=== PATIENT | female | born 1990 | race Caucasian/White ===

== ENCOUNTER → 2018-03-24 01:01 | Outpatient (CLI) | payer MEDICAID, SELFPAY ==
--- NOTE | 2018-03-24 08:23 | DI.REPORT_ITS ---
SYMPTOM/DIAGNOSIS: UNSPECIFIED HYDRONEPHROSIS N13.30 DTPA RENOGRAM WITH LASIX: 10.7 mCi Tc99m D.T.P.A was administered IV. Flow images show symmetric visualization of the kidneys. Renal split function is nearly even with 51% on the left and 49% on the right. 119 mg Furosemide were administered IV at 11 minutes. The renal collecting systems appear nearly symmetric. The right collecting system is slightly more prominent than the left. There is no evidence of obstruction. IMPRESSION: DTPA renogram is within normal limits.
[2018-03-24] MEDS: Furosemide 20 MG/2 ML VIAL IVP (09:55)
== END ==
PROVIDERS: PCP Nurse Practitioner Family; Visit Provider Nurse Practitioner
DX: N13.30 Unspecified hydronephrosis (principal)
CPT/HCPCS: 78708; J1941

== ENCOUNTER 2019-01-01 01:19 | Outpatient (CLI) | payer MEDICAID, SELFPAY ==
[2019-01-01] MEDS: Omnipaque 350 MG/ML 100 ML BTL IJ (08:48)
--- NOTE | 2019-01-01 08:49 | DI.CT_ITS ---
SYMPTOM/DIAGNOSIS: BILAT FLANK PAIN, R10.9, H/O KIDNEY STONES AND UTI'S ABDOMEN AND PELVIC CT: Pre and post contrast examination was performed in addition to a delayed image of the renal collecting system. Comparison examination is 10/13/17. Noncontrast examination again shows a calcification in the upper pole of the right kidney measuring 0.4 cm. This is unchanged. There does appear to be a tiny, 1 mm. non obstructing stone in the upper pole of the left kidney (series 5, image 126). No ureterolithiasis is identified. Note is made of an intrauterine device within the uterus. Venous imaging was performed according to protocol. The visualized lung bases are clear. The liver is normal in size. There is no evidence of a hepatic mass. The portal, superior mesenteric and splenic veins are patent. The gallbladder is negative. There is no biliary ductal dilatation. The pancreas, spleen and adrenal glands are unremarkable. The kidneys show normal and symmetric enhancement. No suspicious renal mass is present. The urinary bladder is intact. Apart from the intrauterine device, the uterus is grossly unremarkable. There does appear to be mild prominence of the periuterine vessels and pelvic venous congestion cannot be excluded. This was present on the prior examination. There is a 2 cm. right ovarian cyst present. There is a question of prominence of the region of the cervix. Pelvic ultrasound may be considered for further evaluation. MRI may also be considered. The abdominal aorta is of normal caliber. No significant abdominal or pelvic adenopathy, ascites or pneumoperitoneum is seen. The bowel shows no evidence of obstruction or inflammation. No findings to suggest an acute appendicitis are present. There is spondylolysis of L 5 but no significant spondylolisthesis is present. 7 minute delayed images of the collecting system were performed. No filling defects are seen in the renal collecting system. No findings to definitely suggest obstruction are present. The urinary bladder is grossly unremarkable. IMPRESSION: Nephrolithiasis. No evidence of ureterolithiasis or obstructive uropathy. Question of prominence of the cervix. Pelvic ultrasound and/or MRI may be considered for further evaluation.
== END 2019-01-01 01:39 ==
PROVIDERS: PCP Nurse Practitioner Family; Visit Provider Nurse Practitioner Acute Care
DX: N20.0 Calculus of kidney (principal); R10.31 Right lower quadrant pain; R10.32 Left lower quadrant pain; Z87.440 Personal history of urinary (tract) infections; Z87.442 Personal history of urinary calculi; Z97.5 Presence of (intrauterine) contraceptive device; N83.291 Other ovarian cyst, right side
CPT/HCPCS: 74178; J3490

== ENCOUNTER 2019-03-12 13:49 | Outpatient (REF) | payer MEDICAID, SELFPAY | END 2019-03-12 14:09 | LOC: LBN 13:49 | PROVIDERS: PCP Nurse Practitioner Family; Visit Provider Nurse Practitioner Family | DX: R30.0 Dysuria (principal) | CPT/HCPCS: 87086 ==

== ENCOUNTER 2019-07-19 13:31 | Outpatient (REF) | payer MEDICAID, SELFPAY ==
--- NOTE | 2019-07-19 13:20 | PAPFT_PTH ---
PATIENT: Lulú Oneil LOC: [facility] U#:[id number] AGE/SX: 28/F ROOM: RE07/19/[address]: Quique Reyes MD : 1990 BED: DIS: 07/19/2019 SPEC #: [id number] RECD: 07/19/19 17:41 STATUS: MYRANDA REShabana #: [id number] LUBNA: 07/19/19 13:[address]: Quique Reyes DEPT: [facility] Cytology RECD BY: Margie Booth ENTERED: 07/19/19 17:43 SP TYPE: PAPFT ROSENDO DR: Ana Hendrix APRN Tissues: 1 - CX/ENDOCX FOR PAP SMEARS Procedures: PAP THIN PREP/UVM Screening Comments: [id number]
== END 2019-07-19 13:51 ==
LOC: LBN 13:31
PROVIDERS: PCP Nurse Practitioner Adult Health; Visit Provider Obstetrics & Gynecology
DX: Z12.4 Encounter for screening for malignant neoplasm of cervix (principal)
CPT/HCPCS: 88142

== ENCOUNTER 2019-09-06 16:38 | Outpatient (CLI) | payer MEDICAID, SELFPAY ==
--- NOTE | 2019-09-06 16:49 | DI.RAD_ITS ---
EXAM: XR ORBITS CLINICAL HISTORY: r/o fracture S09.93XA RT SIDED FACIAL TENDERNESS. TECHNIQUE: 2D digital imaging was performed. COMPARISON: No previous for comparison FINDINGS: No acute fractures are identified. The visualized paranasal sinuses appear clear. The mastoid air c ells are well aerated. IMPRESSION: Unremarkable radiographs of the orbits.
--- NOTE | 2019-09-06 16:51 | DI.RAD_ITS ---
EXAM: XR MANDIBLE COMPLETE CLINICAL HISTORY: r/o fracture S09.93XA, RT SIDED FACIAL TENDERNESS. TECHNIQUE: 2D digital imaging was performed. COMPARISON: XR ORBITS from 09/06/2019 FINDINGS: BONES: No evidence of fracture. JOINTS: No evidence of temporomandibular joint dislocation or subluxation. SOFT TISSUES: Unremarkable. IMPRESSION: Unremarkable radiographs of the mandible.
--- NOTE | 2019-09-06 17:22 | DI.RAD_ITS ---
EXAM: XR NASAL BONES CLINICAL HISTORY: r/o fracture S09.93XA. TECHNIQUE: 2D digital imaging was performed. COMPARISON: No exams were available for comparison FINDINGS: BONES: No evidence of fracture. The nasal septum is midline. SOFT TISSUES: Unremarkable. IMPRESSION: Unremarkable radiographs of the nasal bones.
== END 2019-09-06 16:58 ==
PROVIDERS: PCP Nurse Practitioner Adult Health; Visit Provider Nurse Practitioner Adult Health
DX: S00.33XA Contusion of nose, initial encounter (principal); X58.XXXA Exposure to other specified factors, initial encounter; S00.83XA Contusion of other part of head, initial encounter
CPT/HCPCS: 70110; 70160; 70200

== ENCOUNTER 2019-10-07 07:55 | Emergency (ER) | payer MEDICAID, SELFPAY ==
[2019-10-07 07:58] VITALS: BP 98/64; PULSE 77; RESP 20; TEMP 36.5; O2SAT 99
[2019-10-07 08:20] LABS: Bilirubin Negative (Negative); Blood Negative (Negative); Clarity Clear (Clear); Glucose Negative (Negative); Ketones Negative (Negative); Leukocyte Esterase Trace (Negative); Nitrite Negative (Negative); Specific Gravity 1.025 (1.005-1.025); Urobilinogen 0.2 EU/dL (Up TO 0.2)
--- NOTE | 2019-10-07 08:37 | ED.GENADUL_ITS ---
Discharge Plan Disposition Patient Disposition: OTHER Condition: Serious Discharge Details Chief Complaint: Abd Prob Clinical Impression: Pelvic congestion syndrome, Abdominal pain Primary Care Provider: Ana Hendrix ED Provider: Hitesh Blevins Home Meds and New Rx's Prescriptions: No Action clonazepam [Klonopin] 0.5 mg tablet 0.5 mg PO DAILY RF: 0 amitriptyline 25 mg tablet 25 mg PO QHS Qty: 30 RF: 2 prochlorperazine maleate 5 mg tablet 5 mg PO TID PRN (Reason: headaches) Qty: 30 RF: 2 Mirena 1 EACH intrauterine device 1 ea Intrauterine ONCE Qty: 1 RF: 0 topiramate [Topamax] 25 mg tablet 25 mg PO BID Qty: 132 RF: 3 rizatriptan 5 mg tablet 5 mg PO ONCE PRN (Reason: migraine headache) Qty: 20 RF: 2 nitrofurantoin monohyd/m-cryst [Macrobid] 100 mg capsule 100 mg PO DAILY PRNRF: 0 sertraline 50 mg tablet 75 mg PO DAILY Qty: 145 RF: 3 doxycycline hyclate 75 mg tablet 75 mg PO BID Qty: 14 RF: 0 doxycycline hyclate 100 mg tablet 100 mg PO BID Qty: 14 RF: 0 ibuprofen 600 mg tablet 600 mg PO Q6H PRN (Reason: pain) Qty: 60 RF: 1 epinephrine [EpiPen 2-Jovi] 0.3 MG/0.3 ML auto-injector 0.3 mg IJ AC PRNQty: 2 RF: 0 Discharge Data Discharge Date/Time-TO BE ENTERED AT DEPARTURE: 10/07/19 12:31 Medical Decision Making 8:45 --29-year-old female is here with sudden onset left suprapubic abdominal pain, tender to palpation left suprapubic with some rebound tenderness. Concern for ovarian cyst rupture versus ovarian torsion. Plan to obtain stat pelvic ultrasound. Patient to be given Toradol 30 mg IM for pain. --Pelvic ultrasound was interpreted by radiology:IMPRESSION: 1. Normal sonographic appearance of the kidneys. 2. Normal-appearing uterus with endometrial stripe within normal limits. IUD in good position 3. 2.7 x 1.8 x 2.8 cm complex right ovarian cyst likely reflecting a hemorrhagic cyst. 4. Prominent parametrial vessels which may reflect pelvic congestion syndrome. 5. The findings were discussed with Dr. Blevins of the emergency department on the date of the examination. --Labs reviewed and nondiagnostic. No leukocytosis. Urinalysis nondiagnostic. --Patient was evaluated by Dr. Richardson at bedside. Given current ED status no appropriate exam rooms for pelvic exam. Patient will be transferred to women's wellness clinic under the care of Dr. Richardson for further evaluation, treatment and disposition. HPI General Mode of arrival: ambulatory . Date/Time Provider Initiated Documentation: 10/07/19 08:16 . Limitations to Documentation: no limitations . Information obtained by: patient . HPI Narrative: 29-year-old female with history of prior renal stones, IUD placement, here with chief complaint of left lower abdominal pain. Pain started suddenly this morning around 630 and has persisted. Pain is severe. Sharp. Localized to left suprapubic area. Some associated mild nausea. No vomiting. No diarrhea. No hematuria or dysuria. No flank pain. Pain does not feel like prior renal stone. Patient denies vaginal discharge. No rash. Patient denies trauma. Patient notes IUD was placed a few months ago without complication. Last menstrual period was years ago. Related Data Home Medications Medication Instructions Recorded Confirmed epinephrine [EpiPen 2-Jovi] 0.3 mg IJ AC PRN #2 ml 03/24/16 10/07/19 levonorgestrel [Mirena] 1 ea INTRAUTERINE ONCE #1 implant 11/07/17 10/07/19 clonazepam 0.5 mg tablet 0.5 mg PO DAILY 06/07/19 09/20/19 rizatriptan 5 mg tablet 5 mg PO ONCE PRN #20 tab-cap 06/23/19 10/07/19 topiramate 25 mg tablet 25 mg PO BID #132 tab 06/23/19 10/07/19 nitrofurantoin 100 mg PO DAILY PRN cap 07/19/19 10/07/19 monohydrate/macrocrystals 100 mg capsule sertraline 50 mg tablet 75 mg PO DAILY #145 tab 08/18/19 10/07/19 amitriptyline 25 mg tablet 25 mg PO QHS #30 tab 10/06/19 10/07/19 prochlorperazine maleate 5 mg 5 mg PO TID PRN #30 tab 10/06/19 10/07/19 tablet doxycycline hyclate 75 mg tablet 75 mg PO BID #14 tab 10/07/19 doxycycline hyclate 100 mg tablet 100 mg PO BID #14 tab 10/08/19 ibuprofen 600 mg tablet 600 mg PO Q6H PRN #60 tab 10/15/19 Previous Rx's Medication Instructions Recorded epinephrine [EpiPen 2-Jovi] 0.3 mg IJ AC PRN #2 ml 03/24/16 rizatriptan 5 mg tablet 5 mg PO ONCE PRN #20 tab-cap 06/23/19 topiramate 25 mg tablet 25 mg PO BID #132 tab 06/23/19 sertraline 50 mg tablet 75 mg PO DAILY #145 tab 08/18/19 amitriptyline 25 mg tablet 25 mg PO QHS #30 tab 10/06/19 prochlorperazine maleate 5 mg 5 mg PO TID PRN #30 tab 10/06/19 tablet doxycycline hyclate 75 mg tablet 75 mg PO BID #14 tab 10/07/19 doxycycline hyclate 100 mg tablet 100 mg PO BID #14 tab 10/08/19 ibuprofen 600 mg tablet 600 mg PO Q6H PRN #60 tab 10/15/19 Allergies Allergy/AdvReac Type Severity Reaction Status Date / Time bee venom protein (honey bee) Allergy Severe Verified 10/11/19 08:32 General Stated Complaint: Abd Prob ALEC: 3 Review of Systems All systems reviewed & are unremarkable except as noted in HPI and below Constitutional Constitutional: Denies fever(s) Gastrointestinal Gastrointestinal: Reports as per HPI Genitourinary Genitourinary: Denies genital lesions, Denies dysuria, Denies flank pain and Denies vaginal discharge [facility] Medical History (Updated 10/15/19 @ 13:13 by Cate Nguyen MD) Abnormal cervical Papanicolaou smear 2011, 02/22/15 nml neg HPV Allergic rhinitis Anxiety (Chronic) With depressive components in Winter PTSD components; PRN Clonazepam 2x/wk avg Migraine (Acute) Nephrolithiasis (Resolved) R Pelvic pain (Acute) Post concussive syndrome (Acute) Recurrent urinary tract infection (Chronic 01/23/18) RX Macrobid; [facility] Surgical History History of hemorrhoidectomy (Chronic ~2013) Social History (Updated 10/11/19 @ 08:34 by Selma Bueno LPN) Smoking/Tobacco Use Status: Never Alcohol Intake: never Drug use: Never Substance use type: does not use Household members: family Housing: house Do you need help understanding health information?: Never 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, [employer]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 Do you think of yourself as: straight/heterosexual Current gender identity: female What is your relationship status?: Panel score (0-1 are the most socially isolated patients): 0 What type of physical activity do you participate in: none Seatbelt use: always Drive intox or ride w/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 Working smoke detector in home: Yes Fire extinguisher in home: Yes Carbon monox detector in home: Yes Do you feel safe at home: Yes Do you feel safe in your relationship?: Yes Female Reproductive History Menstrual Age of Menarche: 13 control method: progestin IUCD (Mirena inserted by Haily Reyes MD BRS=[id number] EXP=06/2021) History History 2 Para 2 Hx # Term Pregnancies Multiple births Hx # Pregnancies Ectopic pregnancies AB induced Hx Number of Living Children AB spontaneous Exam Const General: cooperative and no acute distress HENMT Mouth: moist mucous membranes Eyes Conjunctivae: normal conjunctivae Sclera: normal sclerae Neck Neck: trachea midline and supple Resp Auscultation: clear to auscultation bilaterally, no rales, no rhonchi and no wheezes Cardio Jugular venous pressure: no JVD Rate: regular rate and not tachycardic Rhythm: regular rhythm GI Inspection: non-distended Palpation: soft, not firm, no guarding, no masses, not rigid and tender (left suprapubic) with rebound tenderness Auscultation: normal bowel sounds Skin General skin exam: no rashes or lesions noted Neuro General: patient alert, patient awake and tone normal Extrem General: no edema Psych Appearance: grossly normal Mental Status: mental status grossly normal Course Vital Signs Vital signs: Vital Signs Temperature 36.5 C 10/07/19 07:58 Pulse 77 10/07/19 07:58 Respiratory Rate 20 10/07/19 07:58 Blood Pressure 98/64 L 10/07/19 07:58 Pulse Oximetry 99 10/07/19 07:58 Temperature 36.5 C 10/07/19 07:58 Temperature Source Skin 10/07/19 07:58 Pulse 77 10/07/19 07:58 Respiratory Rate 20 10/07/19 07:58 Blood Pressure 98/64 L 10/07/19 07:58 Blood Pressure Position Sitting 10/07/19 07:58 Pulse Oximetry 99 10/07/19 07:58 Oxygen Delivery Method Room Air 10/07/19 07:58 Oxygen Flow Rate 0 10/07/19 07:58 Pain Level 6 10/07/19 07:58 Comment 10/07/19 07:58 Lab/Test Results Lab/Test Results: Laboratory Tests Range/Units 10/07/19 08:05 Urine Color (Yellow) Yellow Urine Clarity (Clear) Clear Urine pH (5-8) 7.0 Ur Specific [place] (1.005-1.025) 1.025 Urine Protein (Negative) mg/dL Negative Urine Ketones (Negative) mg/dL Negative Urine Blood (Negative) Negative Urine Nitrite (Negative) Negative Urine Bilirubin (Negative) Negative Urine Urobilinogen (Up TO 0.2) EU/dL 0.2 Ur Leukocyte Esterase (Negative) Trace H Urine Glucose (Negative) mg/dL Negative POC- Test(urine) Negative
[2019-10-07] MEDS: Ketorolac 30 MG/ML VIAL IVP (08:38)
[2019-10-07 08:53] LABS: Bacteria Rare HPF (Negative); C & S Indicated? No/Sq. Contamination; Casts Negative LPF (Negative); Crystals Negative HPF (Negative); Epithelial Cells Moderate HPF (Negative); Mucus Trace (Negative); RBC 0-2 HPF (0-2)
--- NOTE | 2019-10-07 09:35 | DI.US_ITS ---
EXAM: US PELVIS TRANSVAGINAL CLINICAL HISTORY: left suprapubic pain, sudden onset 6:30a,rebound. TECHNIQUE: Transabdominal and transvaginal pelvic ultrasound was performed using standard protocol. COMPARISON: No exams were available for comparison FINDINGS: KIDNEYS: Kidneys are symmetric in size. No evidence of renal calculi. No evidence of hydronephrosis. No renal mass or cyst identified. UTERUS: Position: Anteverted. Size: 6.4 x 2.2 x 4.7 cm Endometrium: 0.1 cm. Normal for patient's menstrual status. There is an intrauterine device in good p osition. Myometrium: Unremarkable. Cervix: Unremarkable. OVARIES: Right: 4.1 x 2.3 x 3.1 cm Cyst or mass: Complex 2.7 x 1.8 x 2.8 cm cyst likely reflecting a hemorrhagic cyst. Left: 2.1 x 1.5 x 2 cm Cyst or mass: None. Small follicular cysts present. DOPPLER: Color: Symmetric and uniform flow to both ovaries. No hyperemia. Duplex: Normal ovarian arterial waveforms visualized. CUL-DE-SAC: Free fluid: None. Other: Bilateral prominent parametrial vessels which may reflect pelvic congestion syndrome. IMPRESSION: 1. Normal sonographic appearance of the kidneys. 2. Normal-appearing uterus with endometrial stripe within normal limits. IUD in good position 3. 2.7 x 1.8 x 2.8 cm complex right ovarian cyst likely reflecting a hemorrhagic cyst. 4. Prominent parametrial vessels which may reflect pelvic congestion syndrome. 5. The findings were discussed with Dr. Blevins of the emergency department on the date of the examina tion. DATA REPOSITORY:
[2019-10-07 10:23] VITALS: BP 88/49; PULSE 60; RESP 17; TEMP 36.7; O2SAT 100
[2019-10-07 10:27] LABS: Abs Immature Grans 0.02 k/cumm (0.0-0.09); Absolute Basophil Count 0.11 k/cumm (0.0-0.2); Absolute Eosinophil Count 0.61 k/cumm (0.0-0.7); Absolute Lymphocyte Count 1.42 k/cumm (1.2-3.4); Absolute Monocyte Count 0.84 k/cumm (0.11-0.7); Absolute Neutrophil Count 4.19 k/cumm (1.2-6.7); Basophils % 1.5; Eosinophils % 8.5; HCT 39.9 % (36.0-46.0); HGB 13.6 g/dL (12.0-15.5); Immature Grans % 0.3 %; Lymphocytes % 19.7; Mean Corp. HGB Concentration 34.1 g/dL (32.0-36.0); Mean Corpuscular Hemoglobin 30.5 pg (27.0-33.0); Mean Corpuscular Volume 89.5 fL (80-95); Mean Platelet Volume 9.4 fL (8.0-11.0); Monocytes % 11.7; Neutrophils % 58.3; Platelet Count 379 x1000/uL (130-400); RBC 4.46 m/cumm (4.00-5.20); RBC Distribution Width 12.1 % (11.7-14.6); White Blood Cell Count 7.19 k/cumm (4.4-10.8)
[2019-10-07 10:54] LABS: ALT 19 U/L (14-59); AST 15 U/L (15-37); Albumin 4.1 g/dL (3.4-5.0); Alkaline Phosphatase 45 U/L (46-116); BUN 12 mg/dL (7-18); Bilirubin, Total 0.5 mg/dL (0.2-1.0); CREATININE 0.89 mg/dL (0.55-1.02); Calcium 8.7 mg/dL (8.5-10.1); Chloride 106 mmol/L (98-107); Glucose 66 mg/dL (74-106); Potassium 3.7 mmol/L (3.5-5.1); Sodium 142 mmol/L (136-145); Total Protein 7.3 g/dL (6.4-8.2)
[2019-10-07 10:56] LABS: C-Reactive Protein 0.09 mg/dL (0.0-0.3)
[2019-10-07 11:17] LABS: ESR 6 mm/hr (0-20)
== END 2019-10-07 12:31 | disposition other institution (70) ==
PROVIDERS: Emergency Provider Student in an Organized Health Care Education/Training Program; PCP Nurse Practitioner Adult Health
DX: N94.89 Other specified conditions associated with female genital organs and menstrual cycle (principal); R10.824 Left lower quadrant rebound abdominal tenderness; R11.0 Nausea
CPT/HCPCS: 36415; 80053; 81025; 85652; 96374; 99284; 76830; 76856; 81003; 81015; 85025; 86140; J1885

== ENCOUNTER 2019-10-07 16:18 | Outpatient (REF) | payer MEDICAID, SELFPAY ==
[2019-10-11 15:48] LABS: Chlamydia Result Negative (Negative); GC Result Negative (Negative)
== END 2019-10-07 16:38 ==
LOC: LBN 16:18
PROVIDERS: PCP Nurse Practitioner Adult Health; Visit Provider Obstetrics & Gynecology
DX: Z11.3 Encounter for screening for infections with a predominantly sexual mode of transmission (principal)
CPT/HCPCS: 87491; 87591

== ENCOUNTER 2019-12-17 02:22 | Outpatient (CLI) | payer MEDICAID, SELFPAY ==
[2019-12-17 10:57] LABS: Abs Immature Grans 0.01 k/cumm (0.0-0.09); Absolute Basophil Count 0.08 k/cumm (0.0-0.2); Absolute Eosinophil Count 0.47 k/cumm (0.0-0.7); Absolute Lymphocyte Count 1.57 k/cumm (1.2-3.4); Absolute Monocyte Count 0.51 k/cumm (0.11-0.7); Absolute Neutrophil Count 3.27 k/cumm (1.2-6.7); Basophils % 1.4; HGB 14.1 g/dL (12.0-15.5); Immature Grans % 0.2 %; Lymphocytes % 26.6; Mean Corp. HGB Concentration 34.4 g/dL (32.0-36.0); Mean Corpuscular Hemoglobin 30.9 pg (27.0-33.0); Mean Corpuscular Volume 89.7 fL (80-95); Mean Platelet Volume 9.6 fL (8.0-11.0); Monocytes % 8.6; Neutrophils % 55.2; Platelet Count 290 x1000/uL (130-400); RBC 4.57 m/cumm (4.00-5.20); RBC Distribution Width 11.9 % (11.7-14.6); White Blood Cell Count 5.91 k/cumm (4.4-10.8)
[2019-12-18 17:40] LABS: COVID-19 RT-PCR Result NEGATIVE (Negative)
== END 2019-12-17 02:42 ==
PROVIDERS: PCP Nurse Practitioner Adult Health; Visit Provider Obstetrics & Gynecology
DX: R10.2 Pelvic and perineal pain (principal); Z01.818 Encounter for other preprocedural examination; Z11.59 Encounter for screening for other viral diseases
CPT/HCPCS: 36415; 86850; 86900; 86901; U0003; 85025

== ENCOUNTER 2019-12-22 12:14 | Observation (INO) | payer MEDICAID, SELFPAY ==
[2019-12-22] VITALS (20 sets, daily range): BP systolic 89–120; BP diastolic 39–63; PULSE 55–86; RESP 10–20; TEMP 35.5–37; O2SAT 94–100
[2019-12-22] MEDS: Lactated Ringers 1,000 ML 125 ML IV ×2 (08:13→13:17)
--- NOTE | 2019-12-22 09:00 | HPE_ITS ---
Date of service: 12/22/19 Time of Service: 09:00 Assessment and Plan Assessment and plan (1) Pelvic pain: Status: Acute Assessment and plan: Plan to proceed with laparoscopic-assisted vaginal hysterectomy and cystoscopy. Risks of surgery including hemorrhage, infection and injury to other organs such as bowel bladder were reviewed with the patient. We discussed risk of possible conversion to laparotomy. All questions were answered to the patient's satisfaction and consent for surgery was obtained. History of Present Illness History of Present Illness Chief Complaint: Pelvic pain Narrative: 29-year-old for follow-up on pelvic pain and pelvic congestion syndrome. The patient is scheduled for laparoscopic-assisted vaginal hysterectomy today. The patient has had ongoing and longstanding pelvic pain. She has had several Mirena IUDs and is currently on her third. She reports that her pain is not associated with her menses. She did have a CT of the abdomen and pelvis showing prominent vasculature suspicious for pelvic congestion syndrome. She did have a pelvic ultrasound which confirmed prominent vasculature on imaging. The patient reports that she has completed her childbearing. 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 Do you think of yourself as: straight/heterosexual Current gender identity: female What is your relationship status?: Panel score (0-1 are the most socially isolated patients): 0 What type of physical activity do you participate in: none Seatbelt use: always Drive intox or ride w/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 Working smoke detector in home: Yes Fire extinguisher in home: Yes Carbon monox detector in home: Yes Do you feel safe at home: Yes Do you feel safe in your relationship?: Yes Female Reproductive History Menstrual Age of Menarche: 13 control method: progestin IUCD History History 2 Para 2 Hx # Term Pregnancies Multiple births Hx # Pregnancies Ectopic pregnancies AB induced Hx Number of Living Children AB spontaneous Meds Home Medications and Allergies Home Medications Medication Instructions Recorded Confirmed Type epinephrine [EpiPen 2-Jovi] 0.3 mg IJ AC PRN #2 ml 03/24/16 12/17/19 Rx levonorgestrel [Mirena] 1 ea INTRAUTERINE ONCE #1 implant 11/07/17 12/17/19 History rizatriptan 5 mg tablet 5 mg PO ONCE PRN #20 tab-cap 06/23/19 12/22/19 Rx topiramate 25 mg tablet 25 mg PO BID #132 tab 06/23/19 12/22/19 Rx nitrofurantoin 100 mg PO DAILY PRN cap 07/19/19 12/17/19 History monohydrate/macrocrystals 100 mg capsule prochlorperazine maleate 5 mg 5 - 10 mg PO TID PRN #90 tab 10/25/19 12/22/19 Rx tablet hydroxyzine HCl 25 mg tablet See Rx Instructions PO Q6H PRN #30 11/25/19 12/22/19 Rx tab tramadol 100 mg tablet 100 mg PO Q6H PRN #30 tab 12/08/19 12/22/19 Rx sertraline 100 mg PO HS 12/17/19 12/22/19 History propranolol 10 mg tablet 10 mg PO BID #60 tab 12/20/19 12/22/19 Rx Allergies Allergy/AdvReac Type Severity Reaction Status Date / Time bee venom protein (honey bee) Allergy Severe Verified 10/11/19 08:32 Exam Resp Auscultation: clear to auscultation bilaterally Cardio Rate: regular rate Rhythm: regular rhythm Results Last Vital Signs Temp 97.7 F 12/22/19 07:47 Pulse 57 L 12/22/19 07:47 Resp 16 12/22/19 07:47 BP 108/63 12/22/19 07:47 Pulse Ox 100 12/22/19 07:47 COVID-19 Screening In the past 14 days, have you traveled outside of [place] or [place]?: NO
[2019-12-22] MEDS: ceFAZolin 2 GM/50 ML BAG IVPB (09:32)
[2019-12-22] MEDS: Bupivacaine 0.25% Pres-Free 30 ML VIAL (10:17)
--- NOTE | 2019-12-22 11:25 | UTER_PTH ---
PATIENT: Lulú Oneil LOC: U#:[id number] AGE/SX: 29/F ROOM: RE12/22/[address]: Quique Reyes MD : 1990 BED: A DIS: 12/23/2019 SPEC #: [id number] RECD: 12/22/19 12:33 STATUS: MYRANDA REQ #: [id number] LUBNA: 12/22/19 11:[address]: Quique Reyes DEPT: Surgical Specimen RECD BY: Margie Booth ENTERED: 12/22/19 12:34 SP TYPE: UTER OTHR DR: Ana Hendrix APRN Tissues: 1 - UTERUS W OR W/O OVARIES(NOT TUMOR/PROLAPSE) Procedures: GROSS AND MICRO LEVEL 5 Comments: [id number]
--- NOTE | 2019-12-22 12:17 | W.PM.OP ---
Date of service: 12/22/19 Time of Service: 12:17 Operative Note Operative Note DATE OF PROCEDURE: 12/22/19 PRE-OP DIAGNOSIS: 1. Pelvic pain 2. Pelvic venous congestion POST-OP DIAGNOSIS: same PROCEDURE: LAVH, cystoscopy SURGEON: Quique Reyes ASSISTING SURGEON: Mary Eason ANESTHESIA: GETA and spinal ESTIMATED BLOOD LOSS: 100 PATHOLOGY: other (Uterus with fallopian tubes) COMPLICATIONS: None Patient was transported to: PACU Patient's condition: stable Findings: 1. Large pelvic varices within the parametria. 2. Normal bilateral ovaries and fallopian tubes. Procedure Description: Patient was taken to the operating room and after spinal anesthesia and administration of general anesthesia the patient was placed in lithotomy position. The patient was prepped and draped in the usual sterile manner. A Waller catheter was placed in the bladder draining clear urine. A Browsarity uterine manipulator was placed as well. Attention was then turned to the patient's abdomen. The skin and subcutaneous tissues were infiltrated with 0.25% Marcaine solution. A small infraumbilical skin incision was then made with a #15 blade scalpel. Sharp dissection was carried down to the underlying layer of fascia. The fascia was grasped and elevated with 2 Alexandre clamps. The fascia was incised with the scalpel and the peritoneum entered with hemostats. Two sutures of 0 Vicryl were placed on either side of the fascial incision. A 10 mm Balloon trocar was advanced and a pneumoperitoneum was established with carbon dioxide to 15 mmHg. Two 5 mm ports were placed in the right lower and left lower quadrants both under direct visualization. The ovaries were normal bilaterally. There were extensive pelvic varices within the suspensory ligaments and parametria. Dissection was first carried across the right mesosalpinx with the LigaSure device Dissection was carried across the and subsequently the suspensory ligament also with the LigaSure. The anterior leaf of the broad ligament was opened and dissected to the midline. Dissection was taken to the level of the uterine vessels. Ascending branches were coagulated and transected with the LigaSure. Attention was then turned to the opposite side where a similar procedure was carried out. Dissection was carried along the anterior leaf to the midline and the bladder flap was then developed. Attention was then turned to the vaginal portion of this procedure. A weighted speculum was placed in the vagina with good visualization of the cervix. Paracervical tissues were infiltrated with 1% lidocaine solution with epinephrine. A circumferential incision was made at the cervicovaginal junction with a #10 scalpel. Anterior and posterior planes were developed. The anterior cul-de-sac was entered and the bladder was reflected anteriorly with a right angle retractor. The cul-de-sac was entered with Cardozo scissors. A longbilled weighted speculum was placed retracting the rectum posteriorly. The uterosacral ligaments were crossclamped bilaterally with Zeppelin clamps. These were transected and ligated with transfixed tissues of 0 Vicryl. The uterine vessels were crossclamped bilaterally also Zeppelin clamps transected with Cardozo scissors and suture ligated with 0 Vicryl suture. 2 additional pedicles on side completed the dissection uterus was removed. The uterosacral ligaments were incorporated into the vaginal angles with the 2 previously placed sutures of 0 Vicryl and use of a free needle. All pedicles were examined and were noted to be hemostatic. The peritoneum was closed with a pursestring suture of 0 Vicryl. The vaginal cuff was closed with interrupted vertical mattress sutures of 0 Vicryl. Suture tags were cut. 5 mL's of indigocarmine was administered intravenously. A 5 millimeter cystoscope with normal saline distention media was advanced into the bladder. There was strong reflux of indigocarmine from both UOs. T there is a he bladder wall was intact. The cystoscope was removed and Waller catheter replaced. The surgeon was regowned and gloved. In abdomen. The pneumoperitoneum was reestablished. The 10 mm laparoscope was reinserted. All pedicles were noted to be hemostatic. A thorough irrigation was performed. The two 5 mm trochars were removed under direct visualization. The abdomen was desufflated and the umbilical port was removed as well. The fascia at the umbilicus was closed with 2 previously placed sutures of 0 Vicryl. Each incision was closed with interrupted sutures of 4 Monocryl and Dermabond was applied. The procedure was concluded at this point. Sponge, lap and needle counts were correct at the conclusion of the procedure and the patient was transferred to PACU stable condition.
[2019-12-22] MEDS: ePHEDrine 50 MG/ML VIAL 25 MG IM (12:56)
[2019-12-22] MEDS: Ketorolac 30 MG/ML VIAL IVP (17:32)
[2019-12-22] MEDS: Normal Saline Flush 10 ML SYR IV ×2 (17:38→20:49)
[2019-12-22] MEDS: Ondansetron 4 MG/2 ML VIAL IVP (20:49)
[2019-12-22] MEDS: Topiramate 50 MG TAB 25 MG PO (22:24)
[2019-12-22] MEDS: Sertraline 50 MG TAB 100 MG PO (22:24)
[2019-12-23] VITALS (10 sets, daily range): BP systolic 85–123; BP diastolic 42–70; PULSE 51–73; RESP 16–17; TEMP 36.4–37; O2SAT 96–100
[2019-12-23] MEDS: Lactated Ringers 1,000 ML 50 ML IV (00:02)
[2019-12-23] MEDS: Ketorolac 30 MG/ML VIAL IVP ×2 (00:02→06:54)
[2019-12-23] MEDS: Normal Saline Flush 10 ML SYR IV ×2 (00:03→06:54)
--- NOTE | 2019-12-23 08:07 | PDOC.CMIN ---
- If Service Date Differs Date of service: 12/23/19 Time of Service: 08:08 Care Management Initial Assess REASON FOR HOSPITALIZATION:: Pelvic pain PAST MEDICAL HISTORY/PAST SURGICAL HISTORY:: Past medical History: Allergic rhinitis, anxiety, migraines, nephrolithiasis, recurrent UTIs. Past surgical history: Hemorrhoidectomy, cystoscopy PREVIOUS FUNCTIONAL STATUS/SOCIAL/FAMILY SUPPORTS:: Lulú lives with her boyfriend and 6 children in [place], [place] She is employed at [employer] but is not currently working due to the Covid pandemic. Lulú is independent at baseline and has a strong support system. CURRENT FUNCTIONAL STATUS:: Lulú was sitting up in bed waiting for discharge paperwork. She shared that she has 2 children of her own and currently has 4 foster children. She shared some of her experiences fostering children and the need there is for good homes in the community. ADVANCE DIRECTIVES:: none on file Has patient been provided with information about the portal?: Yes Did the patient sign up for the portal?: No CODE STATUS:: Full Code INSURANCE COVERAGE / FINANCIAL ISSUES:: Medicaid CURRENT HOME/COMMUNITY SERVICES/EQUIPMENT:: none PRIMARY CARE PHYSICIAN:: Ana Hendrix POTENTIAL DISCHARGE NEEDS:: Follow up with PCP and discharge plan of care PATIENT/FAMILY EDUCATION NEEDS:: Discharge plan, limitations, follow up plan, Ask Me Three TRANSPORTATION:: via private vehicle with family PLAN:: Lulú will discharge home with no new services. She will follow up with her PCP and discharge plan of care and transport via private vehicle with family.
--- NOTE | 2019-12-23 08:16 | W.PM.PROGNOT ---
Date of Service Date of service: 12/23/19 Time of Service: 08:16 Assessment and Plan Assessment and plan (1) Pelvic pain: Status: Acute Assessment and plan: Satisfactory postoperative progress. Plan for discharge home this morning. (2) Pelvic congestion syndrome: Status: Inactive Subjective Subjective Interval history since last seen: Doing well this morning. Pain well controlled. Ambulatory Tolerating regular diet. Minimal vaginal bleeding last evening. Voids well. Exam GI Other: Abd - Soft. appropriately tender. Incisions C/D/I Objective Objective Clinical Data: Vital Signs Temperature 98.2 F 12/23/19 07:50 Temperature Source Tympanic 12/23/19 07:50 Pulse 62 12/23/19 07:50 Pulse Rhythm Regular 12/23/19 03:43 Respiratory Rate 17 12/23/19 07:50 Respiratory Effort 12/23/19 03:43 Respiratory Depth Normal 12/23/19 03:43 Respiratory Pattern Normal 12/23/19 03:43 Blood Pressure 123/70 12/23/19 07:50 Pulse Oximetry 99 12/23/19 07:50 Respiratory End-tidal CO2 40 12/22/19 12:40 Oxygen Delivery Method Room Air 12/23/19 07:50 Oxygen Flow Rate 0 12/23/19 07:50 Pain Level 0 12/23/19 07:50 Intake & Output 12/22/19 12/22/19 12/23/19 11:59 23:59 11:59 Intake Total 50 / 2505 2455 / 2505 267.5 / 267.5 Output Total 400 / 2775 2375 / 2775 1550 / 1550 Balance -350 / -270 80 / -270 -1282.5 / -1282.5 Weight 137 lb 2.04 oz Intake: IV 50 / 1575 1525 / 1575 267.5 / 267.5 Oral 930 / 930 Output: Urine 400 / 2675 2275 / 2675 1550 / 1550 Estimated Blood Loss 100 / 100 Other: Urine Color Yellow Pale Yellow Yellow Urine Appearance Clear Clear Clear Urine Odor Normal Normal Comment Emptied 5mts ago. Pt is having vaginal bleeding. Emesis Description None Voiding Methods Toilet Toilet
--- NOTE | 2019-12-23 15:43 | PDOC.CMDIS ---
- If Service Date Differs Date of service: 12/23/19 Time of Service: 15:43 LACE Index Scoring Tool - Questions: Length of Stay (in days): 1 Acuity (Admit via E.D.?): No E.D. Visits: 0 - Answers: Total Score: 1 Risk of Readmission: Low Risk Care Management Discharge Reason for Hospitalization: Pelvic pain Discharge Plan: Lulú will discharge home with no new services. She will follow up with her PCP and discharge plan of care and transport via private vehicle with family. Patient/Family Education Needs: Discharge plan, limitations, follow up plan, Ask Me Three
== END 2019-12-23 11:35 | disposition home or self-care (01) ==
LOC: MS 13:24
PROVIDERS: Admitting Provider Obstetrics & Gynecology; PCP Nurse Practitioner Adult Health; Visit Provider Obstetrics & Gynecology
PROC: 0UT9FZZ Resection of Uterus, Via Natural or Artificial Opening With Percutaneous Endoscopic Assistance (ICD-10-PCS; CPT 58552; principal; 2019-12-22 09:00)
DX: N71.1 Chronic inflammatory disease of uterus (principal); N83.8 Other noninflammatory disorders of ovary, fallopian tube and broad ligament; I86.2 Pelvic varices; R10.2 Pelvic and perineal pain; N94.89 Other specified conditions associated with female genital organs and menstrual cycle
CPT/HCPCS: 58552; 52000; 99223; 99233; 88307; G0378; J0690; J1100; J1885; J2001; J2250; J2405; J2704; J3010

== ENCOUNTER 2020-01-01 19:17 | Observation (INO) | payer MEDICAID, SELFPAY ==
[2020-01-01 19:26] VITALS: BP 116/69; PULSE 64; RESP 18; TEMP 36.9; O2SAT 100
--- NOTE | 2020-01-01 19:54 | ED.GENADUL_ITS ---
Discharge Plan Disposition Patient Disposition: [facility] INPATIENT Condition: Stable Discharge Details Chief Complaint: RESOURCE ENGINEER Clinical Impression: Postoperative vaginal bleeding Admit Date/Time: 01/01/20 20:56 Admit Provider: Quique Reyes Attending Provider: Quique Reyes Primary Care Provider: Ana Hendrix ED Provider: Kimberly Brown Discharge Data Discharge Date/Time-TO BE ENTERED AT DEPARTURE: 01/01/20 22:05 Medical Decision Making 29-year-old female presents status post 10 days cystoscopy and laparoscopic hysterectomy with acute onset of vaginal bleeding which started approximately 1 and half hours prior to arrival. She states that she was standing at the grill when she had a gush of blood she is continuing to bleed with clots. She is alert and oriented x3, she states she feels fine. Denies any dizziness or lightheadedness no abdominal pain no cramping. 1955: Will page RESOURCE ENGINEER on-call patient did speak to Dr. Eason prior to arrival told her to rest for an hour and come into the ER if bleeding has not stopped. At this time IV ordered with CBC, CMP 1 L normal saline type and screen. I will ask RESOURCE ENGINEER about imaging. We do not have ultrasound at this time. 1999: Spoke with Dr. Eason who is on-call for RESOURCE ENGINEER she states that she is approximately 30 minutes out and will be coming in to evaluate patient. 2046: Dr. Reyes RESOURCE ENGINEER is at bedside performing pelvic exam and attempting suturing. 1-2 sutures placed and vaginal packing performed by RESOURCE ENGINEER. Patient tolerating procedure with difficulty, offered pain medication which patient declined at this time. She is relatively stable CBC shows normal hemoglobin hematocrit. Vital signs are stable. She is continuing to bleed vaginally during the procedure. Dr. Quique Reyes RESOURCE ENGINEER to admit patient to floor for observation and possible r epair of cuff dehiscence in the OR if continued bleeding. At the time of this dictation patient was stable, alert and oriented. HPI General Mode of arrival: ambulatory . Date/Time Provider Initiated Documentation: 01/01/20 19:44 . Limitations to Documentation: no limitations . Information obtained by: patient . HPI Narrative: 29-year-old female presents status post 10 days cystoscopy and laparoscopic hysterectomy with acute onset of vaginal bleeding which started approximately 1 and half hours prior to arrival. She states that she was standing at the grill when she had a gush of blood she is continuing to bleed with clots. She is alert and oriented x3, she states she feels fine. Denies any dizziness or lightheadedness no abdominal pain no cramping. Related Data Home Medications Medication Instructions Recorded Confirmed epinephrine [EpiPen 2-Jovi] 0.3 mg IJ AC PRN #2 ml 03/24/16 01/01/20 rizatriptan 5 mg tablet 5 mg PO ONCE PRN #20 tab-cap 06/23/19 01/01/20 topiramate 25 mg tablet 25 mg PO BID #132 tab 06/23/19 01/01/20 nitrofurantoin 100 mg PO DAILY PRN cap 07/19/19 01/01/20 monohydrate/macrocrystals 100 mg capsule prochlorperazine maleate 5 mg 5 - 10 mg PO TID PRN #90 tab 10/25/19 01/01/20 tablet hydroxyzine HCl 25 mg tablet See Rx Instructions PO Q6H PRN #30 11/25/19 01/01/20 tab tramadol 100 mg tablet 100 mg PO Q6H PRN #30 tab 12/08/19 01/01/20 sertraline 100 mg PO HS 12/17/19 01/01/20 propranolol 10 mg tablet 10 mg PO BID #60 tab 12/20/19 01/01/20 hydrocodone-acetaminophen 1 tab PO Q4H PRN #20 tab 12/23/19 01/01/20 Previous Rx's Medication Instructions Recorded epinephrine [EpiPen 2-Jovi] 0.3 mg IJ AC PRN #2 ml 03/24/16 rizatriptan 5 mg tablet 5 mg PO ONCE PRN #20 tab-cap 06/23/19 topiramate 25 mg tablet 25 mg PO BID #132 tab 06/23/19 prochlorperazine maleate 5 mg 5 - 10 mg PO TID PRN #90 tab 10/25/19 tablet hydroxyzine HCl 25 mg tablet See Rx Instructions PO Q6H PRN #30 11/25/19 tab tramadol 100 mg tablet 100 mg PO Q6H PRN #30 tab 12/08/19 propranolol 10 mg tablet 10 mg PO BID #60 tab 12/20/19 hydrocodone-acetaminophen 1 tab PO Q4H PRN #20 tab 12/23/19 Allergies Allergy/AdvReac Type Severity Reaction Status Date / Time bee venom protein (honey bee) Allergy Severe Verified 12/29/19 15:55 General Stated Complaint: RESOURCE ENGINEER ALEC: 2 Review of Systems Narrative: Constitutional: Negative for weight loss, alert and oriented, well groomed, normal body habitus, appears comfortable. HEENT: Denies trauma, headaches, blurry vision, nasal discharge, sore throat, trouble swallowing. Chest: Denies chest pain, palpitations, irregular rhythm, hypertension. Respiratory: Denies Shortness of breath, cough, hemoptysis. GI: Denies abdominal pain, nausea, vomiting, diarrhea, constipation. : Denies dysuria, hematuria, flank pain, rectal bleeding. Positive vaginal bleeding bright red blood with clots. Neuro: Denies dizziness, blurry vision, weakness, syncope, headache or facial numbness. Hematologic: Denies easy bruising, intolerance to heat or cold, hair loss. 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; PRN Clonazepam 2x/wk avg Migraine (Acute) Nephrolithiasis (Resolved) R Pelvic pain (Acute) Post concussive syndrome (Acute) Recurrent urinary tract infection (Chronic 01/23/18) RX Macrobid; [facility] Surgical History History of hemorrhoidectomy (Chronic ~2012) Hx of cystoscopy (Acute) Social History Smoking/Tobacco Use Status: Never Alcohol Intake: never Drug use: Never Substance use type: does not use Household members: family Housing: house Do you need help understanding health information?: Never 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, [employer]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 Do you think of yourself as: straight/heterosexual Current gender identity: female What is your relationship status?: Panel score (0-1 are the most socially isolated patients): 0 What type of physical activity do you participate in: none Seatbelt use: always Drive intox or ride w/intox [employer]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 Appears stated age. Normal body habitus. Head: Normocephalic, no trauma. Eyes: Pupils PERRLA, Red reflex noted, EOM's intact. Eyelids symmetrical without lesions, discharge, or swelling. ENT: Bilateral TM's WNL, External ear normal to inspection, no mastoid TTP, swelling, or erythema, Nasal turbinates WNL, no nasal discharge. Normal dentition, Posterior pharynx WNL, no exudate. Chest: RRR, Normal S1, S2, distal pulses intact. Resp: Lungs clear to auscultation bilaterally, no wheezes, rales, or rhonchi. Abdomen: Does have 3 laparoscopic incisions noted to her abdomen with small amount of surrounding contusion no surrounding erythema or swelling nontender to palpation. They appear to be healing well. Genitourinary: She is having bright red bleeding vaginally with clots. Musculoskeletal: Normal gait, 5/5 strength to all four extremities. Skin: No suspicious rashes or lesions. Capillary refill less than 2 sec. Neurologic: Cranial nerves II-XII intact. Alert and oriented x 3. DTR's intact. Hematologic/Lymphatic: No ecchymosis, no lymphadenopathy. Course Vital Signs Vital signs: Vital Signs Temperature 36.9 C 01/01/20 19:26 Pulse 64 01/01/20 19:26 Respiratory Rate 18 01/01/20 19:26 Blood Pressure 116/69 01/01/20 19:26 Pulse Oximetry 100 01/01/20 19:26 Temperature 36.9 C 01/01/20 19:26 Temperature Source Oral 01/01/20 19:26 Pulse 64 01/01/20 19:26 Respiratory Rate 18 01/01/20 19:26 Respiratory Effort 01/01/20 19:34 Blood Pressure 116/69 01/01/20 19:26 Pulse Oximetry 100 01/01/20 19:26 Oxygen Delivery Method Room Air 01/01/20 19:26 Oxygen Flow Rate 0 01/01/20 19:26 Pain Level 0 01/01/20 19:36
[2020-01-01] MEDS: Normal Saline 1,000 ML 1000 ML IV (20:07)
[2020-01-01 20:23] LABS: Abs Immature Grans 0.03 k/cumm (0.0-0.09); Absolute Basophil Count 0.08 k/cumm (0.0-0.2); Absolute Eosinophil Count 0.55 k/cumm (0.0-0.7); Absolute Monocyte Count 0.93 k/cumm (0.11-0.7); Absolute Neutrophil Count 5.22 k/cumm (1.2-6.7); Basophils % 0.9; Eosinophils % 6.2; HCT 35.9 % (36.0-46.0); HGB 12.6 g/dL (12.0-15.5); Immature Grans % 0.3 %; Lymphocytes % 23.6; Mean Corp. HGB Concentration 35.1 g/dL (32.0-36.0); Mean Corpuscular Volume 88.2 fL (80-95); Mean Platelet Volume 9.1 fL (8.0-11.0); Monocytes % 10.4; Neutrophils % 58.6; Platelet Count 340 x1000/uL (130-400); RBC 4.07 m/cumm (4.00-5.20); RBC Distribution Width 11.6 % (11.7-14.6); White Blood Cell Count 8.91 k/cumm (4.4-10.8)
[2020-01-01 20:37] VITALS: BP 104/63; PULSE 63; RESP 16; O2SAT 100
[2020-01-01 20:40] LABS: ALT 17 U/L (14-59); AST 15 U/L (15-37); Albumin 4.3 g/dL (3.4-5.0); Alkaline Phosphatase 61 U/L (46-116); Anion Gap 9.2 mmol/L (3-11); BUN 22 mg/dL (7-18); Bilirubin, Total 0.3 mg/dL (0.2-1.0); CO2 25.8 mmol/L (21.0-32.0); CREATININE 0.98 mg/dL (0.55-1.02); Calcium 8.7 mg/dL (8.5-10.1); Chloride 102 mmol/L (98-107); Glucose 88 mg/dL (74-106); Potassium 3.4 mmol/L (3.5-5.1); Sodium 137 mmol/L (136-145); Total Protein 7.8 g/dL (6.4-8.2)
[2020-01-01 21:25] VITALS: BP 112/68; PULSE 68; RESP 16; TEMP 36.6; O2SAT 100
[2020-01-01 22:06] VITALS: BP 105/64; PULSE 66; RESP 16; TEMP 36.9; O2SAT 99
--- NOTE | 2020-01-01 22:26 | NUR.NOTE ---
Dr trujillo met pt in Rm 3. vaginal exam and treatment . pt admitted to OB the pt reported more bleeding Nursing Note:
--- NOTE | 2020-01-01 22:36 | HPE_ITS ---
Date of service: 01/01/20 Time of Service: 22:37 Assessment and Plan Assessment and plan (1) Postoperative vaginal bleeding: Status: Acute Assessment and plan: Plan to proceed with repair of vaginal cuff bleed under anesthesia. We discussed possible laparoscopy. Risks of surgery were reviewed with the patient. All questions were answered to the patient's satisfaction and consent for surgery was obtained. History of Present Illness History of Present Illness Chief Complaint: Post op vaginal cuff bleed Narrative: 29-year-old now 10 days status post LAVH presents to the emergency department today with vaginal cuff bleeding. The patient developed significant vaginal bleeding which was painless. She denies any preceding intercourse. She has no abdominal pain. Bowel and bladder function have been normal. She denies any fevers or chills. During her evaluation in the emergency department she underwent examination which showed a localized bleed at the midpoint of the vaginal cuff. She was able to tolerate a placement of a single suture but this did not control her bleeding. Vaginal packing had been placed but she continued to bleed through the packing. 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; PRN Clonazepam 2x/wk avg Migraine (Acute) Nephrolithiasis (Resolved) R Pelvic pain (Acute) Post concussive syndrome (Acute) Recurrent urinary tract infection (Chronic 01/23/18) RX Macrobid; [facility] Surgical History History of hemorrhoidectomy (Chronic ~2012) Hx of cystoscopy (Acute) Social History Smoking/Tobacco Use Status: Never Alcohol Intake: never Drug use: Never Substance use type: does not use Household members: family Housing: house Do you need help understanding health information?: Never 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, [employer]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 Do you think of yourself as: straight/heterosexual Current gender identity: female What is your relationship status?: Panel score (0-1 are the most socially isolated patients): 0 What type of physical activity do you participate in: none Seatbelt use: always Drive 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 Working smoke detector in home: Yes Fire extinguisher in home: Yes Carbon monox detector in home: Yes Do you feel safe at home: Yes Do you feel safe in your relationship?: Yes Female Reproductive History Menstrual Age of Menarche: 13 control method: progestin IUCD History History 2 Para 2 Hx # Term Pregnancies Multiple births Hx # Pregnancies Ectopic pregnancies AB induced Hx Number of Living Children AB spontaneous Meds Home Medications and Allergies Home Medications Medication Instructions Recorded Confirmed Type epinephrine [EpiPen 2-Jovi] 0.3 mg IJ AC PRN #2 ml 03/24/16 01/01/20 Rx rizatriptan 5 mg tablet 5 mg PO ONCE PRN #20 tab-cap 06/23/19 01/01/20 Rx topiramate 25 mg tablet 25 mg PO BID #132 tab 06/23/19 01/01/20 Rx nitrofurantoin 100 mg PO DAILY PRN cap 07/19/19 01/01/20 History monohydrate/macrocrystals 100 mg capsule prochlorperazine maleate 5 mg 5 - 10 mg PO TID PRN #90 tab 10/25/19 01/01/20 Rx tablet hydroxyzine HCl 25 mg tablet See Rx Instructions PO Q6H PRN #30 11/25/19 01/01/20 Rx tab tramadol 100 mg tablet 100 mg PO Q6H PRN #30 tab 12/08/19 01/01/20 Rx sertraline 100 mg PO HS 12/17/19 01/01/20 History propranolol 10 mg tablet 10 mg PO BID #60 tab 12/20/19 01/01/20 Rx hydrocodone-acetaminophen 1 tab PO Q4H PRN #20 tab 12/23/19 01/01/20 Rx Allergies Allergy/AdvReac Type Severity Reaction Status Date / Time bee venom protein (honey bee) Allergy Severe Verified 12/29/19 15:55 Exam Resp Auscultation: clear to auscultation bilaterally Cardio Rate: regular rate Rhythm: regular rhythm Other: A speculum examination was performed in the emergency department. Bright red bleeding was noted emanating from the midpoint of the vaginal cuff. A single suture was placed but additional suturing was poorly tolerated. Vaginal packing had been placed. Results Labs Result diagrams: 01/01/20 20:16 01/01/20 20:16 Labs: Laboratory Results - last 24 hr 01/01/20 01/01/20 01/01/20 19:53 20:16 20:16 WBC 8.91 RBC 4.07 Hgb 12.6 Hct 35.9 L MCV 88.2 MCH 31.0 MCHC 35.1 RDW 11.6 L Plt Count 340 MPV 9.1 Immature Gran % 0.3 Neutrophils % 58.6 Lymphocytes % 23.6 Monocytes % 10.4 Eosinophils % 6.2 Basophils % 0.9 Absolute Neutrophils 5.22 Absolute Lymphocytes 2.10 Absolute Monocytes 0.93 H Absolute Eosinophils 0.55 Absolute Basophils 0.08 PT Cancelled INR Cancelled Sodium 137 Potassium 3.4 L Chloride 102 Carbon Dioxide 25.8 Anion Gap 9.2 BUN 22 H Creatinine 0.98 Estimated GFR/1.73 m2 >= 60.00 Glucose 88 Calcium 8.7 Total Bilirubin 0.3 AST 15 ALT 17 Alkaline Phosphatase 61 Total Protein 7.8 Albumin 4.3 Patient ABO/Rh Antibody Screen 01/01/20 20:16 WBC RBC Hgb Hct MCV MCH MCHC RDW Plt Count MPV Immature Gran % Neutrophils % Lymphocytes % Monocytes % Eosinophils % Basophils % Absolute Neutrophils Absolute Lymphocytes Absolute Monocytes Absolute Eosinophils Absolute Basophils PT INR Sodium Potassium Chloride Carbon Dioxide Anion Gap BUN Creatinine Estimated GFR/1.73 m2 Glucose Calcium Total Bilirubin AST ALT Alkaline Phosphatase Total Protein Albumin Patient ABO/Rh B Positive Antibody Screen Negative Last Vital Signs Temp 98.4 F 01/01/20 22:06 Pulse 66 01/01/20 22:06 Resp 16 01/01/20 22:06 BP 105/64 01/01/20 22:06 Pulse Ox 99 01/01/20 22:06 COVID-19 Screening In the past 14 days, have you traveled outside of [place] or [place]?: NO Had IN PERSON contact w/suspected or confirmed C-19 person: Yes
[2020-01-01] MEDS: Lactated Ringers 1,000 ML 80 ML IV ×2 (23:00→23:46)
--- NOTE | 2020-01-01 23:02 | NUR.NOTE ---
Nursing Note:Pt transported to OR via bed at 2250.
--- NOTE | 2020-01-01 23:03 | NUR.NOTE ---
Nursing Note: 2205 Dr. Reyes at bedside, surgical consent obtained, OR crew on the way. Pt is stable no signs of distress.
[2020-01-02] VITALS (10 sets, daily range): BP systolic 85–106; BP diastolic 43–60; PULSE 50–73; RESP 14–16; TEMP 36.4–36.8; O2SAT 98–100
[2020-01-02] MEDS: Ketorolac 30 MG/ML VIAL IVP ×2 (00:51→06:34)
--- NOTE | 2020-01-02 01:05 | NUR.NOTE ---
Nursing Note: Waller catheter placed.
--- NOTE | 2020-01-02 07:30 | W.PM.OP ---
Date of service: 01/02/20 Time of Service: 01:30 Operative Note Operative Note DATE OF PROCEDURE: 01/02/20 PRE-OP DIAGNOSIS: Vaginal cuff bleed post hysterectomy POST-OP DIAGNOSIS: same PROCEDURE: Ligation of vaginal cuff bleeding and revision of incision SURGEON: Quique Reyes ASSISTING SURGEON: Mary Eason ANESTHESIA: spinal ESTIMATED BLOOD LOSS: 100 PATHOLOGY: none sent Patient was transported to: PACU Patient's condition: stable Findings: 1. Small bleeding artery within the vaginal cuff. Procedure Description: The patient was taken to the operating room and after spinal anesthesia, the patient was placed in lithotomy position. The patient was prepped and draped in the usual sterile fashion. A weighted speculum was placed in the vagina with good visualization of the vaginal cuff. There was active bleeding noted from the midline of the vaginal cuff. Vaginal cuff sutures were cut and the cuff was opened. A bleeding vessel was noted near the midline of the incision which was extraperitoneal. The peritoneum was intact and the abdominal cavity was not entered. The bleeding vessel was suture ligated with a figure of eight suture of 0 vicryl. Cautery was used to control minor bleeders along the cuff. The cuff was reapproximated with a running locked suture of 0 vicryl. Excellent hemostasis was noted. The procedure was tolerated well. Sponge, lap and needle counts were correct at the conclusion of the procedure. The patient was transferred to PACU in stable condition.
--- NOTE | 2020-01-02 07:48 | W.PM.PROGNOT ---
Date of Service Date of service: 01/02/20 Time of Service: 07:48 Assessment and Plan Assessment and plan (1) Postoperative vaginal bleeding: Status: Acute Assessment and plan: Plan to observe the patient through the morning. If minimal vaginal bleeding will plan for discharge home. Subjective Subjective Interval history since last seen: Doing well this morning. No pain. Vaginal packing removed with minimal vaginal bleeding. Waller catheter removed as well. Objective Objective Clinical Data: Abnormal lab results 01/01/20 01/01/20 Range/Units 20:16 20:16 Hct 35.9 L (36.0-46.0) % RDW 11.6 L (11.7-14.6) % Absolute Monocytes 0.93 H (0.11-0.7) k/cumm Potassium 3.4 L (3.5-5.1) mmol/L BUN 22 H (7-18) mg/dL Vital Signs Temperature 97.5 F L 01/02/20 02:25 Temperature Source Oral 01/02/20 02:25 Pulse 70 01/02/20 05:41 Respiratory Rate 16 01/02/20 05:41 Respiratory Effort Non-Labored 01/01/20 22:45 Respiratory Depth Normal 01/01/20 22:45 Respiratory Pattern Normal 01/01/20 22:45 Blood Pressure 106/57 L 01/02/20 05:41 Pulse Oximetry 98 01/02/20 05:41 Oxygen Delivery Method Room Air 01/02/20 05:41 Oxygen Flow Rate 0 01/02/20 05:41 Pain Level 0 01/02/20 06:34 Comment 01/02/20 02:25 Intake & Output 01/01/20 01/01/20 01/02/20 11:59 23:59 11:59 Intake Total 1000 / 1000 300 / 300 Output Total 350 / 350 350 / 350 Balance 650 / 650 -50 / -50 Weight 138 lb 0.009 oz Intake: IV 1000 / 1000 300 / 300 Output: Urine 350 / 350 350 / 350 Other: Urine Color Yellow Yellow Urine Appearance Clear Clear Urine Odor None None Comment Blood from vagina noted in collection hat Voiding Methods Toilet Indwelling Catheter Laboratory Results WBC 8.91 k/cumm (4.4-10.8) 01/01/20 20:16 RBC 4.07 m/cumm (4.00-5.20) 01/01/20 20:16 Hgb 12.6 g/dL (12.0-15.5) 01/01/20 20:16 Hct 35.9 % (36.0-46.0) L 01/01/20 20:16 MCV 88.2 fL (80-95) 01/01/20 20:16 MCH 31.0 pg (27.0-33.0) 01/01/20 20:16 MCHC 35.1 g/dL (32.0-36.0) 01/01/20 20:16 RDW 11.6 % (11.7-14.6) L 01/01/20 20:16 Plt Count 340 x1000/uL (130-400) 01/01/20 20:16 MPV 9.1 fL (8.0-11.0) 01/01/20 20:16 Immature Gran % 0.3 % 01/01/20 20:16 Neutrophils % 58.6 01/01/20 20:16 Lymphocytes % 23.6 01/01/20 20:16 Monocytes % 10.4 01/01/20 20:16 Eosinophils % 6.2 01/01/20 20:16 Basophils % 0.9 01/01/20 20:16 Absolute Neutrophils 5.22 k/cumm (1.2-6.7) 01/01/20 20:16 Absolute Lymphocytes 2.10 k/cumm (1.2-3.4) 01/01/20 20:16 Absolute Monocytes 0.93 k/cumm (0.11-0.7) H 01/01/20 20:16 Absolute Eosinophils 0.55 k/cumm (0.0-0.7) 01/01/20 20:16 Absolute Basophils 0.08 k/cumm (0.0-0.2) 01/01/20 20:16 PT Cancelled 01/01/20 19:53 INR Cancelled 01/01/20 19:53 Sodium 137 mmol/L (136-145) 01/01/20 20:16 Potassium 3.4 mmol/L (3.5-5.1) L 01/01/20 20:16 Chloride 102 mmol/L (98-107) 01/01/20 20:16 Carbon Dioxide 25.8 mmol/L (21.0-32.0) 01/01/20 20:16 Anion Gap 9.2 mmol/L (3-11) 01/01/20 20:16 BUN 22 mg/dL (7-18) H 01/01/20 20:16 Creatinine 0.98 mg/dL (0.55-1.02) 01/01/20 20:16 Estimated GFR/1.73 m2 >= 60.00 (mL/min/1.73m2) 01/01/20 20:16 Glucose 88 mg/dL (74-106) 01/01/20 20:16 Calcium 8.7 mg/dL (8.5-10.1) 01/01/20 20:16 Total Bilirubin 0.3 mg/dL (0.2-1.0) 01/01/20 20:16 AST 15 U/L (15-37) 01/01/20 20:16 ALT 17 U/L (14-59) 01/01/20 20:16 Alkaline Phosphatase 61 U/L (46-116) 01/01/20 20:16 Total Protein 7.8 g/dL (6.4-8.2) 01/01/20 20:16 Albumin 4.3 g/dL (3.4-5.0) 01/01/20 20:16 Patient ABO/Rh B Positive 01/01/20 20:16 Antibody Screen Negative 01/01/20 20:16
[2020-01-02] MEDS: Prochlorperazine 5 MG TAB 10 MG PO (08:48)
[2020-01-02] MEDS: Propranolol 10 MG TAB PO (08:49)
[2020-01-02] MEDS: Topiramate 25 MG TAB PO (08:49)
== END 2020-01-02 10:26 | disposition home or self-care (01) ==
LOC: ER 20:56 → OBS 21:35
PROVIDERS: Admitting Provider Obstetrics & Gynecology; Emergency Provider Registered Nurse Emergency; PCP Nurse Practitioner Adult Health; Visit Provider Obstetrics & Gynecology
PROC: (CPT 57335; principal; 2020-01-01 23:00)
DX: N99.820 Postprocedural hemorrhage of a genitourinary system organ or structure following a genitourinary system procedure (principal); Z90.711 Acquired absence of uterus with remaining cervical stump
CPT/HCPCS: 57200; 36415; 80053; 86850; 86900; 86901; 96360; 96361; 99223; 99233; 99285; 85025; 85610; 99284; J0690; J1885; J2250; J2405; J3010

== ENCOUNTER 2020-01-18 15:02 | Outpatient (REF) | payer MEDICAID, SELFPAY | END 2020-01-18 15:22 | LOC: LBN 15:02 | PROVIDERS: PCP Nurse Practitioner Adult Health; Visit Provider Obstetrics & Gynecology | DX: N76.4 Abscess of vulva (principal) | CPT/HCPCS: 87070; 87205 ==

== ENCOUNTER 2020-01-19 14:59 | Emergency (ER) | payer MEDICAID, SELFPAY ==
[2020-01-19 15:10] VITALS: BP 91/55; PULSE 70; RESP 18; TEMP 36.9; O2SAT 98
--- NOTE | 2020-01-19 15:22 | ED.GENADUL_ITS ---
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 Clinical Impression: Abdominal pain, S/P laparoscopic hysterectomy Primary Care Provider: Ana Hendrix ED Provider: Iris Bridges Home Meds and New Rx's Prescriptions: Continued prochlorperazine maleate 5 mg tablet 5 - 10 mg PO TID PRN (Reason: headaches) Qty: 90 RF: 0 hydroxyzine HCl 25 mg tablet See Rx Instructions PO Q6H PRN (Reason: nausea and vomiting) Qty: 30 RF: 1 sertraline 100 mg tablet 100 mg PO DAILY Qty: 90 RF: 3 sulfamethoxazole-trimethoprim [Bactrim DS] 800-160 mg tablet 1 tab PO BID Qty: 14 RF: 0 topiramate [Topamax] 25 mg tablet 25 mg PO BID Qty: 132 RF: 3 nitrofurantoin monohyd/m-cryst [Macrobid] 100 mg capsule 100 mg PO DAILY PRNRF: 0 tramadol 100 mg tablet 100 mg PO Q6H PRN (Reason: pain) Qty: 30 RF: 0 rizatriptan 5 mg tablet 5 mg PO ONCE PRN (Reason: migraine headache) Qty: 20 RF: 2 propranolol 20 mg tablet 20 mg PO BID Qty: 60 RF: 5 epinephrine [EpiPen 2-Jovi] 0.3 MG/0.3 ML auto-injector 0.3 mg IJ AC PRNQty: 2 RF: 0 Discharge Instructions Instructions: Abdominal Pain (ED) Additional Instructions: Drink plenty of fluids and get plenty of rest. Take your medication that you have at home as needed and directed for pain. Take your antibiotics until finished. Follow-up with your scheduled appointment with Dr. Reyes. Return to the emergency department if you develop any worsening or new concerning symptoms. Discharge Data Discharge Physician: Iris Bridges Medical Decision Making 29-year-old female 3 weeks status post laparoscopic hysterectomy complicated by vaginal cuff bleed which was repaired postop presents with lower abdominal pain for the past week and brown malodorous vaginal discharge today. Sent by Dr. Reyes for CBC and CAT scan to rule out abscess. BP 91/55. Remainder vitals within normal limits. She appears pleasant and in no acute distress. Her abdomen is soft but with mild to moderate lower abdominal tenderness. Will place an IV, bolus IV fluids, screening labs, urinalysis, CT abdomen and pelvis and dose of IV Tylenol and reassess. Labs reviewed and unremarkable. Normal white blood cell count. Urinalysis negative. CT negative for abscess or other acute process. Case discussed with Dr. Reyes who reviewed images with radiology. Okay to discharge home and follow-up outpatient. He recommends 1 dose of Diflucan here in the ED. Patient had pelvic exam and cultures done yesterday in the office and was given Bactrim. No need to repeat pelvic exam or cultures at this time. Usual and customary return precautions given prior to discharge. Medical Records Medical records reviewed: Yes I reviewed the patient's medical records. Imaging Data Radiologic Study: Radiologist's impression: CT ABDOMEN PELVIS W CLINICAL HISTORY: lower abd pain/s/p hysterectomy. TECHNIQUE: Imaging Protocol: Axial computed tomography images with coronal and sagittal reformatted images were created and reviewed CONTRAST MATERIAL: Intravenous: Omnipaque 350 Contrast volume:89 cc Oral: No COMPARISON: CT CT ABDOMEN PELVIS WO/W from 01/01/2019 US US PELVIS TRANSVAGINAL from 10/07/2019 FINDINGS: ABDOMEN: Lung Bases: Normal where visualized. Liver: Normal density. No measurable mass. Gallbladder and biliary tract: No radiodense calculus or dilation. Contracted gallbladder. Pancreas: Normal density, no abnormal calcifications or inflammatory process. Spleen: Normal. Kidneys: Normal size, contour and axis. No radiodense stones or obstructive uropathy. No masses seen. Adrenal glands: No masses seen. Abdominal Aorta: Abdominal portion non-dilated. PELVIS: Bladder: Nearly empty.. Bowel: No obstruction or bowel wall thickening. Normal appendix. Normal quantity of stool. Peritoneal cavity: No ascites, collection or mesenteric inflammatory response. Bones: Bilateral L5 spondylolysis. Minimal spondylolisthesis. Reproductive organs: Status post hysterectomy. Prominent pelvic veins. Lymph nodes: Unremarkable. Impression: Limited exam secondary to lack of oral contrast and lack of intra-abdominal and pelvic fat. Status post hysterectomy. There is no evidence of abscess or post surgical fluid collection. There are no findings to suggest peritonitis.. Lab Data Lab results reviewed: Yes I reviewed the patient's lab results. Labs: Laboratory Tests Range/Units 01/19/20 01/19/20 01/19/20 15:29 15:29 15:35 WBC (4.4-10.8) k/cumm 10.15 RBC (4.00-5.20) m/cumm 4.04 Hgb (12.0-15.5) g/dL 12.5 Hct (36.0-46.0) % 36.4 MCV (80-95) fL 90.1 MCH (27.0-33.0) pg 30.9 MCHC (32.0-36.0) g/dL 34.3 RDW (11.7-14.6) % 12.2 Plt Count (130-400) x1000/uL 341 MPV (8.0-11.0) fL 9.3 Immature Gran % % 0.2 Neutrophils % 66.9 Lymphocytes % 13.6 Monocytes % 11.0 Eosinophils % 7.7 Basophils % 0.6 Absolute Neutrophils (1.2-6.7) k/cumm 6.79 H Absolute Lymphocytes (1.2-3.4) k/cumm 1.38 Absolute Monocytes (0.11-0.7) k/cumm 1.12 H Absolute Eosinophils (0.0-0.7) k/cumm 0.78 H Absolute Basophils (0.0-0.2) k/cumm 0.06 Sodium (136-145) mmol/L 139 Potassium (3.5-5.1) mmol/L 3.8 Chloride (98-107) mmol/L 104 Carbon Dioxide (21.0-32.0) mmol/L 23.3 Anion Gap (3-11) mmol/L 11.7 H BUN (7-18) mg/dL 14 Creatinine (0.55-1.02) mg/dL 1.25 H Estimated GFR/1.73 m2 (mL/min/1.73m2) 50.32 Glucose (74-106) mg/dL 93 Calcium (8.5-10.1) mg/dL 8.9 Total Bilirubin (0.2-1.0) mg/dL 0.4 AST (15-37) U/L 15 ALT (14-59) U/L 17 Alkaline Phosphatase (46-116) U/L 57 Total Protein (6.4-8.2) g/dL 7.6 Albumin (3.4-5.0) g/dL 4.3 Lipase (73-393) U/L 228 Urine Color (Yellow) Yellow Urine Clarity (Clear) Clear Urine pH (5-8) 7.0 Ur Specific [place] (1.005-1.025) 1.025 Urine Protein (Negative) mg/dL Negative Urine Ketones (Negative) mg/dL Negative Urine Blood (Negative) Negative Urine Nitrite (Negative) Negative Urine Bilirubin (Negative) Negative Urine Urobilinogen (Up TO 0.2) EU/dL 1.0 H Ur Leukocyte Esterase (Negative) Negative Urine Glucose (Negative) mg/dL Negative HPI General Mode of arrival: ambulatory . Date/Time Provider Initiated Documentation: 01/19/20 15:19 . Limitations to Documentation: no limitations . Information obtained by: patient . HPI Narrative: Patient is a 29-year-old female who is 3 weeks status post laparoscopic hysterectomy complicated by vaginal cuff bleed which was repaired in the OR 10 days later who presents with continued lower abdominal pain for the past week now with brown vaginal discharge and odor today. She did have light to heavy vaginal bleeding that started 10 days postop which resolved yesterday. She denies any fever, nausea, vomiting, diarrhea, urinary symptoms. She states her lower abdominal pain is intermittent, aching currently 11/11. She did take ibuprofen at noon today. Dr. Reyes called the ER today stating that he was sending patient in for CBC and CT abdomen and pelvis to rule out abscess. Related Data Home Medications Medication Instructions Recorded Confirmed epinephrine [EpiPen 2-Jovi] 0.3 mg IJ AC PRN #2 ml 03/24/16 01/19/20 topiramate 25 mg tablet 25 mg PO BID #132 tab 06/23/19 01/19/20 nitrofurantoin 100 mg PO DAILY PRN cap 07/19/19 01/19/20 monohydrate/macrocrystals 100 mg capsule prochlorperazine maleate 5 mg 5 - 10 mg PO TID PRN #90 tab 10/25/19 01/19/20 tablet hydroxyzine HCl 25 mg tablet See Rx Instructions PO Q6H PRN #30 11/25/19 01/19/20 tab tramadol 100 mg tablet 100 mg PO Q6H PRN #30 tab 12/08/19 01/19/20 sertraline 100 mg tablet 100 mg PO DAILY #90 tab 01/03/20 01/19/20 propranolol 20 mg tablet 20 mg PO BID #60 tab 01/18/20 01/19/20 rizatriptan 5 mg tablet 5 mg PO ONCE PRN #20 tab-cap 01/18/20 01/19/20 sulfamethoxazole 800 1 tab PO BID #14 tab 01/18/20 01/19/20 mg-trimethoprim 160 mg tablet Previous Rx's Medication Instructions Recorded epinephrine [EpiPen 2-Jovi] 0.3 mg IJ AC PRN #2 ml 03/24/16 topiramate 25 mg tablet 25 mg PO BID #132 tab 06/23/19 prochlorperazine maleate 5 mg 5 - 10 mg PO TID PRN #90 tab 10/25/19 tablet hydroxyzine HCl 25 mg tablet See Rx Instructions PO Q6H PRN #30 11/25/19 tab tramadol 100 mg tablet 100 mg PO Q6H PRN #30 tab 12/08/19 sertraline 100 mg tablet 100 mg PO DAILY #90 tab 01/03/20 propranolol 20 mg tablet 20 mg PO BID #60 tab 01/18/20 rizatriptan 5 mg tablet 5 mg PO ONCE PRN #20 tab-cap 01/18/20 sulfamethoxazole 800 1 tab PO BID #14 tab 01/18/20 mg-trimethoprim 160 mg tablet Allergies Allergy/AdvReac Type Severity Reaction Status Date / Time bee venom protein (honey bee) Allergy Severe Verified 01/19/20 15:19 General Stated 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 ALEC: 3 Review of Systems All systems reviewed & are unremarkable except as noted in HPI and below Constitutional Constitutional: Reports as per HPI, Denies chills and Denies fever(s) Eyes Eyes: Denies blurry vision ENT Ears, Nose, Mouth, and Throat: Denies dizziness, Denies sore throat and Denies throat swelling Cardiovascular Cardiovascular: Denies chest pain and Denies dyspnea Respiratory Respiratory: Denies cough and Denies dyspnea Gastrointestinal Gastrointestinal: Reports abdominal pain, Denies diarrhea and Denies vomiting Genitourinary Genitourinary: Denies hematuria, Denies dysuria, Reports vaginal discharge (brown) and Reports vaginal odor (foul smelling) Musculoskeletal Musculoskeletal: Denies back pain and Denies numbness Integumentary/Breasts Skin/Breast: Denies lesions and Denies rash Neurologic Neurologic: Denies dizziness, Denies localized weakness and Denies numbness Allergic/Immunologic Allergic/Immunologic: Denies throat swelling PFSH Medical History (Updated 01/19/20 @ 16:09 by Iris Bridges DO) Abnormal cervical Papanicolaou smear 2011, 02/22/15 nml neg HPV Allergic rhinitis Anxiety (Chronic) With depressive components in Winter PTSD components Migraine (Acute) Nephrolithiasis (Resolved) R Pelvic pain (Acute) Post concussive syndrome (Acute) Recurrent urinary tract infection (Chronic 01/23/18) RX Macrobid; [facility] Surgical History (Updated 01/19/20 @ 16:09 by Iris Bridges DO) History of hemorrhoidectomy (Chronic ~2012) Hx of cystoscopy (Acute) Social History Smoking/Tobacco Use Status: Never Alcohol Intake: never Drug use: Never Substance use type: does not use Household members: family Housing: house Do you need help understanding health information?: Never 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, [employer]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 Do you think of yourself as: straight/heterosexual Current gender identity: female What is your relationship status?: Panel score (0-1 are the most socially isolated patients): 0 What type of physical activity do you participate in: none Seatbelt use: always Drive intox or ride w/intox haul driver: No Working smoke detector in home: Yes Fire extinguisher in home: Yes Carbon monox detector in home: Yes Do you feel safe at home: Yes Do you feel safe in your relationship?: Yes Female Reproductive History Menstrual Age of Menarche: 13 control method: progestin IUCD History History 2 Para 2 Hx # Term Pregnancies Multiple births Hx # Pregnancies Ectopic pregnancies AB induced Hx Number of Living Children AB spontaneous Exam Const General: cooperative, healthy appearing and no acute distress HENMT Head: normal to inspection Face and sinus: normal facial exam Eyes General: appearance normal, both eyes and all related structures EOM: EOM intact bilaterally Neck Neck: normal visual inspection and No submandibular swelling Lymphatic: no lymphadenopathy noted Chest Chest: normal inspection of the chest and no tenderness Resp Effort & Inspection: normal respiratory effort and able to speak in complete sentences Auscultation: clear to auscultation bilaterally Cardio Rate: regular rate Rhythm: regular rhythm GI Inspection: normal to inspection Palpation: soft, not firm, not rigid and tender in the LLQ, in the RLQ and suprapubicly Auscultation: normal bowel sounds Skin General skin exam: no rashes or lesions noted Neuro General: patient alert, patient awake and patient oriented x3 Cognition: normal cognition Speech: speech normal Motor: muscle tone normal throughout Sensory Exam: no sensory deficits noted Extrem General: normal to inspection, full ROM, capillary refill normal, no calf tenderness bilaterally and no edema Psych Appearance: grossly normal Mental Status: mental status grossly normal Speech and Movement: speech and movement normal Affect: normal affect Course Vital Signs Vital signs: Vital Signs Temperature 98.4 F 01/19/20 15:10 Pulse 70 01/19/20 15:10 Respiratory Rate 18 01/19/20 15:10 Blood Pressure 91/55 L 01/19/20 15:10 Pulse Oximetry 98 01/19/20 15:10 Temperature 98.4 F 01/19/20 15:10 Temperature Source Skin 01/19/20 15:10 Pulse 70 01/19/20 15:10 Respiratory Rate 18 01/19/20 15:10 Respiratory Effort Non-Labored 01/19/20 15:13 Blood Pressure 91/55 L 01/19/20 15:10 Blood Pressure Position Sitting 01/19/20 15:10 Pulse Oximetry 98 01/19/20 15:10 Oxygen Delivery Method Room Air 01/19/20 15:10 Oxygen Flow Rate 0 01/19/20 15:10 Pain Level 4 01/19/20 15:15
[2020-01-19 15:42] LABS: Bilirubin Negative (Negative); Blood Negative (Negative); Clarity Clear (Clear); Glucose Negative (Negative); Ketones Negative (Negative); Leukocyte Esterase Negative (Negative); Nitrite Negative (Negative); Specific Gravity 1.025 (1.005-1.025)
[2020-01-19 15:43] LABS: Abs Immature Grans 0.02 k/cumm (0.0-0.09); Absolute Basophil Count 0.06 k/cumm (0.0-0.2); Absolute Eosinophil Count 0.78 k/cumm (0.0-0.7); Absolute Lymphocyte Count 1.38 k/cumm (1.2-3.4); Absolute Monocyte Count 1.12 k/cumm (0.11-0.7); Absolute Neutrophil Count 6.79 k/cumm (1.2-6.7); Basophils % 0.6; Eosinophils % 7.7; HCT 36.4 % (36.0-46.0); HGB 12.5 g/dL (12.0-15.5); Immature Grans % 0.2 %; Lymphocytes % 13.6; Mean Corp. HGB Concentration 34.3 g/dL (32.0-36.0); Mean Corpuscular Hemoglobin 30.9 pg (27.0-33.0); Mean Corpuscular Volume 90.1 fL (80-95); Mean Platelet Volume 9.3 fL (8.0-11.0); Neutrophils % 66.9; Platelet Count 341 x1000/uL (130-400); RBC 4.04 m/cumm (4.00-5.20); RBC Distribution Width 12.2 % (11.7-14.6); White Blood Cell Count 10.15 k/cumm (4.4-10.8)
[2020-01-19] MEDS: Omnipaque 350 MG/ML 100 ML BTL IJ (15:47)
[2020-01-19] MEDS: Normal Saline - Diluent 50 ML VIAL IV (15:48)
[2020-01-19 15:54] LABS: ALT 17 U/L (14-59); AST 15 U/L (15-37); Albumin 4.3 g/dL (3.4-5.0); Alkaline Phosphatase 57 U/L (46-116); Anion Gap 11.7 mmol/L (3-11); BUN 14 mg/dL (7-18); Bilirubin, Total 0.4 mg/dL (0.2-1.0); CO2 23.3 mmol/L (21.0-32.0); CREATININE 1.25 mg/dL (0.55-1.02); Calcium 8.9 mg/dL (8.5-10.1); Chloride 104 mmol/L (98-107); Estimated GFR 50.32 (mL/min/1.73m2); Glucose 93 mg/dL (74-106); Lipase 228 U/L (73-393); Potassium 3.8 mmol/L (3.5-5.1); Sodium 139 mmol/L (136-145); Total Protein 7.6 g/dL (6.4-8.2)
--- NOTE | 2020-01-19 15:55 | DI.CT_ITS ---
EXAM: CT ABDOMEN PELVIS W CLINICAL HISTORY: lower abd pain/s/p hysterectomy. TECHNIQUE: Imaging Protocol: Axial computed tomography images with coronal and sagittal reformatted images were created and reviewed CONTRAST MATERIAL: Intravenous: Omnipaque 350 Contrast volume:89 cc Oral: No COMPARISON: CT CT ABDOMEN PELVIS WO/W from 01/01/2019 US US PELVIS TRANSVAGINAL from 10/07/2019 FINDINGS: ABDOMEN: Lung Bases: Normal where visualized. Liver: Normal density. No measurable mass. Gallbladder and biliary tract: No radiodense calculus or dilation. Contracted gallbladder. Pancreas: Normal density, no abnormal calcifications or inflammatory process. Spleen: Normal. Kidneys: Normal size, contour and axis. No radiodense stones or obstructive uropathy. No masses seen. Adrenal glands: No masses seen. Abdominal Aorta: Abdominal portion non-dilated. PELVIS: Bladder: Nearly empty.. Bowel: No obstruction or bowel wall thickening. Normal appendix. Normal quantity of stool. Peritoneal cavity: No ascites, collection or mesenteric inflammatory response. Bones: Bilateral L5 spondylolysis. Minimal spondylolisthesis. Reproductive organs: Status post hysterectomy. Prominent pelvic veins. Lymph nodes: Unremarkable. Impression: Limited exam secondary to lack of oral contrast and lack of intra-abdominal and pelvic fat. Status p ost hysterectomy. There is no evidence of abscess or post surgical fluid collection. There are no f indings to suggest peritonitis.. RADIATION DOSE DELIVERED: 662.34mGy.cm Total DLP DATA REPOSITORY: All CT scans at this facility are submitted to the National Radiology Data Registry (NRDR) Dose Index Registry (DIR) with the [employer] (ACR). RADIATION OPTIMIZATION: All CT scans at this facility use at least one of these dose optimization te chniques: automated exposure control; mA and/or kV adjustment per patient size (includes targeted exa ms where dose is matched to clinical indication); or iterative reconstruction.
[2020-01-19] MEDS: ACETAMINOPHEN 1,000 MG/100 ML BTL 400 MG IVPB (15:57)
[2020-01-19] MEDS: Normal Saline 1,000 ML 1000 ML IV (15:58)
--- NOTE | 2020-01-19 16:14 | GCONE_ITS ---
Date of service: 01/19/20 Time of Service: 16:14 Assessment and Plan Assessment and plan (1) S/P laparoscopic hysterectomy: Status: Acute (2) Post-operative state: Status: Acute (3) Abdominal pain: Status: Acute Assessment and plan: CT of the abdomen and pelvis was essentially normal with the exception of the finding of prominent pelvic varicosities. She had no leukocytosis. She is currently on Bactrim which she should continue. For her vaginal irritation we will treat her presumptively with a single dose of Diflucan. I would not recommend any vaginal creams. She should have nothing PV until cleared after final postoperative visit. She does have a follow-up appointment in a couple weeks and I would have her follow-up with me over the phone at the beginning of next week. Should she develop fevers chills, increasing vaginal discharge or increasing in vaginal bleeding she should return to care sooner. I do expect that she will have some bloody vaginal drainage for some time postoperatively but this should resolve gradually over time. At this point I feel that she is suitable for discharge home. History of Present Illness History of Present Illness Chief Complaint: Vaginal discharge and malaise post hysterectomy Narrative: 29-year-old now 3 weeks status post LAVH for pelvic congestion syndrome and pelvic pain. She presented with a vaginal cuff bleeding and had to undergo a vaginal cuff revision. She did well in the postoperative period and over the last several days developed some vaginal discharge, vaginal irritation, some mild low abdominal cramping and malaise. She denies any fevers or chills. She has no purulent discharge. She was seen in the office yesterday and underwent a pelvic examination which was essentially benign. Cultures of the vaginal cuff are pending but have only grown normal skin mario thus far. She was started on Bactrim yesterday because she was considered to be at higher risk of developing a vaginal cuff infection. On her evaluation she had a normal white cell count and CT of the abdomen and pelvis was obtained demonstrating prominent pelvic varicosities but no fluid collection or identifiable abscess. Review of Systems All systems reviewed & are unremarkable except as noted in HPI and below [facility] Medical History (Updated 01/19/20 @ 16:09 by Iris Bridges DO) Abnormal cervical Papanicolaou smear 2011, 02/22/15 nml neg HPV Allergic rhinitis Anxiety (Chronic) With depressive components in Winter PTSD components Migraine (Acute) Nephrolithiasis (Resolved) R Pelvic pain (Acute) Post concussive syndrome (Acute) Recurrent urinary tract infection (Chronic 01/23/18) RX Macrobid; [facility] Surgical History (Updated 01/19/20 @ 16:09 by Iris Bridges DO) History of hemorrhoidectomy (Chronic ~2012) Hx of cystoscopy (Acute) Social History Smoking/Tobacco Use Status: Never Alcohol Intake: never Drug use: Never Substance use type: does not use Household members: family Housing: house Do you need help understanding health information?: Never 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, [employer]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 Do you think of yourself as: straight/heterosexual Current gender identity: female What is your relationship status?: Panel score (0-1 are the most socially isolated patients): 0 What type of physical activity do you participate in: none Seatbelt use: always Drive intox or ride w/intox lokie driver: No Working smoke detector in home: Yes Fire extinguisher in home: Yes Carbon monox detector in home: Yes Do you feel safe at home: Yes Do you feel safe in your relationship?: Yes Female Reproductive History Menstrual Age of Menarche: 13 control method: progestin IUCD History History 2 Para 2 Hx # Term Pregnancies Multiple births Hx # Pregnancies Ectopic pregnancies AB induced Hx Number of Living Children AB spontaneous Results Last Vital Signs Temp 98.4 F 01/19/20 15:10 Pulse 70 01/19/20 15:10 Resp 18 01/19/20 15:10 BP 91/55 L 01/19/20 15:10 Pulse Ox 98 01/19/20 15:10 Labs Result diagrams: 01/19/20 15:29 01/19/20 15:29 Labs: Laboratory Results - last 24 hr 01/19/20 01/19/20 01/19/20 15:29 15:29 15:35 WBC 10.15 RBC 4.04 Hgb 12.5 Hct 36.4 MCV 90.1 MCH 30.9 MCHC 34.3 RDW 12.2 Plt Count 341 MPV 9.3 Immature Gran % 0.2 Neutrophils % 66.9 Lymphocytes % 13.6 Monocytes % 11.0 Eosinophils % 7.7 Basophils % 0.6 Absolute Neutrophils 6.79 H Absolute Lymphocytes 1.38 Absolute Monocytes 1.12 H Absolute Eosinophils 0.78 H Absolute Basophils 0.06 Sodium 139 Potassium 3.8 Chloride 104 Carbon Dioxide 23.3 Anion Gap 11.7 H BUN 14 Creatinine 1.25 H Estimated GFR/1.73 m2 50.32 Glucose 93 Calcium 8.9 Total Bilirubin 0.4 AST 15 ALT 17 Alkaline Phosphatase 57 Total Protein 7.6 Albumin 4.3 Lipase 228 Urine Color Yellow Urine Clarity Clear Urine pH 7.0 Ur Specific [place] 1.025 Urine Protein Negative Urine Ketones Negative Urine Blood Negative Urine Nitrite Negative Urine Bilirubin Negative Urine Urobilinogen 1.0 H Ur Leukocyte Esterase Negative Urine Glucose Negative
[2020-01-19] MEDS: Fluconazole 150 MG TAB PO (16:22)
--- NOTE | 2020-01-19 16:23 | DI.VRAD_ITS ---
PROCEDURE INFORMATION: Exam: CT Abdomen And Pelvis With Contrast Exam date and time: 01/19/2020 3:50 PM Age: 29 years old Clinical indication: Abdominal pain; Localized; Prior surgery; Surgery date: <1 month; Surgery type: Hysterectomy x3 weeks, uterus removed, lower abdomincal pain, and cramping, with low back pain after hysterectomy. TECHNIQUE: Imaging protocol: Computed tomography of the abdomen and pelvis with intravenous contrast. Radiation optimization: All CT scans at this facility use at least one of these dose optimization techniques: automated exposure control; mA and/or kV adjustment per patient size (includes targeted exams where dose is matched to clinical indication); or iterative reconstruction. Contrast material: OMNIPAQUE 350; Contrast volume: 89 ml; Contrast route: INTRAVENOUS (IV); COMPARISON: CT ABDOMEN PELVIS WO/W 01/01/2019 8:32 AM FINDINGS: Liver: Normal. No mass. Gallbladder and bile ducts: Normal. No calcified stones. No ductal dilation. Pancreas: Normal. No ductal dilation. Spleen: Normal. No splenomegaly. Adrenals: Normal. No mass. Kidneys and ureters: Scarring and cortical calcification right kidney. No hydronephrosis. Stomach and bowel: Diffuse wall thickening of the stomach suggestive of a nonspecific gastritis, versus artifact related to underdistention. Correlate clinically. Appendix: No evidence of appendicitis. Intraperitoneal space: Unremarkable. No free air. No significant fluid collection. Vasculature: Unremarkable. No abdominal aortic aneurysm. Lymph nodes: Unremarkable. No enlarged lymph nodes. Bladder: Unremarkable as visualized. Reproductive: Asymmetric prominence of the left ovarian vein and venous collaterals at the left pelvis and adnexa suggestive of congestion syndrome. Correlate clinically. Previous hysterectomy. Bones/joints: Bilateral pars defects L5. No acute bony abnormality. Soft tissues: Unremarkable. IMPRESSION: 1. Diffuse wall thickening of the stomach suggestive of a nonspecific gastritis, versus artifact related to underdistention. Correlate clinically. 2. Asymmetric prominence of the left ovarian vein and venous collaterals at the left pelvis and adnexa suggestive of congestion syndrome. Correlate clinically. Dictated and Authenticated by: Himanshu Sanford MD. Ordering:YOHAN Simmons MD
== END 2020-01-19 17:05 | disposition home or self-care (01) ==
PROVIDERS: Emergency Provider Physician Assistant; PCP Nurse Practitioner Adult Health
DX: N89.8 Other specified noninflammatory disorders of vagina (principal); R10.30 Lower abdominal pain, unspecified; G89.18 Other acute postprocedural pain; Y83.6 Removal of other organ (partial) (total) as the cause of abnormal reaction of the patient, or of later complication, without mention of misadventure at the time of the procedure; Z90.710 Acquired absence of both cervix and uterus
CPT/HCPCS: 36415; 80053; 83690; 96361; 96365; 99253; 99285; 74177; 81003; 85025; J0131; J3490

== ENCOUNTER 2020-01-21 13:10 | Outpatient (REF) | payer MEDICAID, SELFPAY | END 2020-01-21 13:30 | LOC: LBN 13:10 | PROVIDERS: PCP Nurse Practitioner Adult Health; Visit Provider Nurse Practitioner Adult Health | DX: R30.0 Dysuria (principal) | CPT/HCPCS: 87086 ==

== ENCOUNTER 2020-01-21 18:30 | Emergency (ER) | payer MEDICAID, SELFPAY ==
--- NOTE | 2020-01-21 18:32 | W.ED.GENAD ---
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 Clinical Impression: S/P laparoscopic hysterectomy, Post-operative state, Vaginal discharge Primary Care Provider: Ana Hendrix ED Provider: Luz Marina Black Home Meds and New Rx's Prescriptions: New metronidazole [Flagyl] 500 mg tablet 500 mg PO BID Qty: 20 RF: 0 No Action prochlorperazine maleate 5 mg tablet 5 - 10 mg PO TID PRN (Reason: headaches) Qty: 90 RF: 0 clotrimazole 10 mg jesika 10 mg PO 5X/DAY 14 Days Qty: 70 RF: 0 fluconazole [Diflucan] 150 mg tablet 150 mg PO ONCE Qty: 1 RF: 0 hydroxyzine HCl 25 mg tablet See Rx Instructions PO Q6H PRN (Reason: nausea and vomiting) Qty: 30 RF: 1 sertraline 100 mg tablet 100 mg PO DAILY Qty: 90 RF: 3 sulfamethoxazole-trimethoprim [Bactrim DS] 800-160 mg tablet 1 tab PO BID Qty: 14 RF: 0 topiramate [Topamax] 25 mg tablet 25 mg PO BID Qty: 132 RF: 3 nitrofurantoin monohyd/m-cryst [Macrobid] 100 mg capsule 100 mg PO DAILY PRNRF: 0 rizatriptan 5 mg tablet 5 mg PO ONCE PRN (Reason: migraine headache) Qty: 20 RF: 2 propranolol 20 mg tablet 20 mg PO BID Qty: 60 RF: 5 epinephrine [EpiPen 2-Jovi] 0.3 MG/0.3 ML auto-injector 0.3 mg IJ AC PRNQty: 2 RF: 0 Discharge Instructions Additional Instructions: Pelvic rest. Call for fever >100.4. Follow up in [facility] on [facility]. Please continue with the Bactrim as previously prescribed. Flagyl has been called in by Dr. Eason. If you develop new or worsening symptoms please seek care urgently once again. Referrals: Ruiz Pandey [ NON-[facility] STAFF PHYSICIAN] - Discharge Data Discharge Date/Time-TO BE ENTERED AT DEPARTURE: 01/21/20 19:15 Medical Decision Making Patient is a pleasant she reports that she underwent a 29-year-old female presents today with chief complaint of vaginal discharge. Complete hysterectomy December 31. Had subsequent dehiscence of the wound 3 weeks later. Reports that she had been began healing well but then started having some abdominal discomfort and back pain. States that she underwent a CT scan a few days ago which without significant abnormality. There was concern for potential infection and patient was started on Bactrim by her BESSEMER REGULATOR. She denies any fevers or chills. Reports her back pain and abdominal pain is completely subsided. She reports that today she noted a gush of foul-smelling fluid from vaginal opening. States that this happened approximately 5 times in total. Contacted BESSEMER REGULATOR. Dr. Eason, BESSEMER REGULATOR, Contact the department prior to the patient's arrival and advised that she was on her way into the able to assess the patient. On exam, patient is resting comfortably. Dr. Eason performed vaginal exam. Thick, purulent foul-smelling discharge was noted. She was concerned primarily for abscess. Did not see any evidence of recurrent dehiscence. Patient has normal vital signs. Is nontoxic-appearing. Dr. Eason advised adding Flagyl to her previous regimen of Bactrim. Patient will follow-up with BESSEMER REGULATOR on Friday. She was given return precautions. All of her questions and concerns were addressed and she is in agreement this plan. HPI General Mode of arrival: ambulatory. Date/Time Provider Initiated Documentation: 01/21/20 18:32. Limitations to Documentation: no limitations. Information obtained by: patient and RN notes reviewed. History of Present Illness 29 year old F presents to the emergency department with the chief complaint of vaginal discharge, described as moderate (states 5 episodes of gushing foul smelling discharge), Quality is described as other (denies any pain), and is localized to the genitals. Patient reports no radiation. Patient started experiencing this hour(s) and it has been intermittent. No relieving factors improve symptom(s), No exacerbating factors reported . Patient notes no other symptoms.. Patient did receive the following treatments prior to arrival, other (currently on bactrim) Related Data Home Medications Medication Instructions Recorded Confirmed epinephrine [EpiPen 2-Jovi] 0.3 mg IJ AC PRN #2 ml 03/24/16 01/21/20 topiramate 25 mg tablet 25 mg PO BID #132 tab 06/23/19 01/21/20 nitrofurantoin 100 mg PO DAILY PRN cap 07/19/19 01/21/20 monohydrate/macrocrystals 100 mg capsule prochlorperazine maleate 5 mg 5 - 10 mg PO TID PRN #90 tab 10/25/19 01/21/20 tablet hydroxyzine HCl 25 mg tablet See Rx Instructions PO Q6H PRN #30 11/25/19 01/21/20 tab sertraline 100 mg tablet 100 mg PO DAILY #90 tab 01/03/20 01/21/20 propranolol 20 mg tablet 20 mg PO BID #60 tab 01/18/20 01/21/20 rizatriptan 5 mg tablet 5 mg PO ONCE PRN #20 tab-cap 01/18/20 01/21/20 sulfamethoxazole 800 1 tab PO BID #14 tab 01/18/20 01/21/20 mg-trimethoprim 160 mg tablet clotrimazole 10 mg jesika 10 mg PO 5X/DAY 14 Days #70 tab 01/21/20 01/21/20 fluconazole 150 mg tablet 150 mg PO ONCE #1 tab 01/21/20 01/21/20 metronidazole [Flagyl] 500 mg PO BID #20 tab 01/21/20 Previous Rx's Medication Instructions Recorded epinephrine [EpiPen 2-Jovi] 0.3 mg IJ AC PRN #2 ml 03/24/16 topiramate 25 mg tablet 25 mg PO BID #132 tab 06/23/19 prochlorperazine maleate 5 mg 5 - 10 mg PO TID PRN #90 tab 10/25/19 tablet hydroxyzine HCl 25 mg tablet See Rx Instructions PO Q6H PRN #30 11/25/19 tab sertraline 100 mg tablet 100 mg PO DAILY #90 tab 01/03/20 propranolol 20 mg tablet 20 mg PO BID #60 tab 01/18/20 rizatriptan 5 mg tablet 5 mg PO ONCE PRN #20 tab-cap 01/18/20 sulfamethoxazole 800 1 tab PO BID #14 tab 01/18/20 mg-trimethoprim 160 mg tablet clotrimazole 10 mg jesika 10 mg PO 5X/DAY 14 Days #70 tab 01/21/20 fluconazole 150 mg tablet 150 mg PO ONCE #1 tab 01/21/20 metronidazole [Flagyl] 500 mg PO BID #20 tab 01/21/20 Allergies Allergy/AdvReac Type Severity Reaction Status Date / Time bee venom protein (honey bee) Allergy Severe Verified 01/21/20 18:38 General ALEC: 3 Review of Systems Constitutional Constitutional: Reports as per HPI, Denies chills, Denies fatigue, Denies fever(s) and Denies headache(s) ENT Ears, Nose, Mouth, and Throat: Denies headache(s) Cardiovascular Cardiovascular: Reports as per HPI, Denies chest pain and Denies dyspnea Respiratory Respiratory: Reports as per HPI, Denies cough and Denies dyspnea Gastrointestinal Gastrointestinal: Reports as per HPI Musculoskeletal Musculoskeletal: Reports as per HPI and Denies back pain Integumentary/Breasts Skin/Breast: Reports as per HPI and Denies rash Neurologic Neurologic: Reports as per HPI and Denies headache(s) Endocrine Endocrine: Denies fatigue [facility] Medical History (Updated 01/21/20 @ 19:09 by Mary Eason DO) Abnormal cervical Papanicolaou smear 2011, 02/22/15 nml neg HPV Allergic rhinitis Anxiety (Chronic) With depressive components in Winter PTSD components Migraine (Acute) Nephrolithiasis (Resolved) R Pelvic pain (Acute) Post concussive syndrome (Acute) Recurrent urinary tract infection (Chronic 01/23/18) RX Macrobid; [facility] Vaginal discharge (Acute) Surgical History (Updated 01/21/20 @ 19:09 by Mary Eason DO) History of hemorrhoidectomy (Chronic ~2012) Hx of cystoscopy (Acute) Social History Smoking/Tobacco Use Status: Never Alcohol Intake: never Drug use: Never Substance use type: does not use Household members: family Housing: house Do you need help understanding health information?: Never 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, [employer]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 Do you think of yourself as: straight/heterosexual Current gender identity: female What is your relationship status?: Panel score (0-1 are the most socially isolated patients): 0 What type of physical activity do you participate in: none Seatbelt use: always Drive intox or ride w/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: No Working smoke detector in home: Yes Fire extinguisher in home: Yes Carbon monox detector in home: Yes Do you feel safe at home: Yes Do you feel safe in your relationship?: Yes Female Reproductive History Menstrual Age of Menarche: 13 control method: progestin IUCD History History 2 Para 2 Hx # Term Pregnancies Multiple births Hx # Pregnancies Ectopic pregnancies AB induced Hx Number of Living Children AB spontaneous Exam Const General: cooperative, healthy appearing, comfortable, no acute distress and well developed Nutritional Appearance: average body habitus and well nourished Orientation: alert and awake HENMT Head: normal to inspection Mouth: moist mucous membranes Resp Effort & Inspection: normal respiratory effort, able to speak in complete sentences and no respiratory distress Cardio Rate: regular rate Rhythm: regular rhythm Skin General skin exam: no rashes or lesions noted Trauma: no lacerations or abrasions Neuro General: patient alert and patient awake Cognition: normal cognition Speech: speech normal Gait: normal gait Psych Appearance: grossly normal and well kempt Mental Status: mental status grossly normal Speech and Movement: speech and movement normal
[2020-01-21 18:34] VITALS: BP 121/71; PULSE 66; RESP 18; TEMP 36.7; O2SAT 97
--- NOTE | 2020-01-21 18:59 | GCONE_ITS ---
Date of service: 01/21/20 Time of Service: 18:59 Assessment and Plan Assessment and plan (1) S/P laparoscopic hysterectomy: Status: Acute (2) Vaginal discharge: Status: Acute Assessment and plan: Suspect bacterial vaginosis versus spontaneous drainage of cuff abscess (less likely) Will add Flagyl 500 mg BID with close follow up in the office. History of Present Illness History of Present Illness Chief Complaint: copious vaginal discharge Narrative: Patient is post op vaginal hysterectomy and subsequent cuff repair. Was seen 01/18 with abdominal pain and placed on Bactrim with a negative CT that day. Today had onset of profuse foul-smelling vaginal discharge. Abdominal and back pain are resolved. Good a appetite. no fever or chils Consults Consult date: 01/21/20 Review of Systems All systems reviewed & are unremarkable except as noted in HPI and below Constitutional Constitutional: Denies chills and Denies fever(s) Cardiovascular Cardiovascular: Reports system reviewed and no additional complaints, except as documented and Denies dyspnea Respiratory Respiratory: Denies cough and Denies dyspnea Gastrointestinal Gastrointestinal: Denies change in bowel habits, Denies change in stool character, Denies diarrhea and Denies nausea Genitourinary Genitourinary: Reports system reviewed and no additional complaints, except as documented Musculoskeletal Musculoskeletal: Reports system reviewed and no additional complaints, except as documented [facility] Medical History (Updated 01/21/20 @ 19:09 by Mary Eason DO) Abnormal cervical Papanicolaou smear 2011, 02/22/15 nml neg HPV Allergic rhinitis Anxiety (Chronic) With depressive components in Winter PTSD components Migraine (Acute) Nephrolithiasis (Resolved) R Pelvic pain (Acute) Post concussive syndrome (Acute) Recurrent urinary tract infection (Chronic 01/23/18) RX Macrobid; [facility] Vaginal discharge (Acute) Surgical History (Updated 01/21/20 @ 19:09 by Mary Eason DO) History of hemorrhoidectomy (Chronic ~2012) Hx of cystoscopy (Acute) Social History Smoking/Tobacco Use Status: Never Alcohol Intake: never Drug use: Never Substance use type: does not use Household members: family Housing: house Do you need help understanding health information?: Never 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, [employer]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 Do you think of yourself as: straight/heterosexual Current gender identity: female What is your relationship status?: Panel score (0-1 are the most socially isolated patients): 0 What type of physical activity do you participate in: none Seatbelt use: always Drive intox 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 Working smoke detector in home: Yes Fire extinguisher in home: Yes Carbon monox detector in home: Yes Do you feel safe at home: Yes Do you feel safe in your relationship?: Yes Female Reproductive History Menstrual Age of Menarche: 13 control method: progestin IUCD History History 2 Para 2 Hx # Term Pregnancies Multiple births Hx # Pregnancies Ectopic pregnancies AB induced Hx Number of Living Children AB spontaneous Exam Const General: cooperative, healthy appearing, comfortable and no acute distress Eyes General: appearance normal, both eyes and all related structures Resp Effort & Inspection: normal respiratory effort Cardio Rate: regular rate GI Palpation: soft, not firm, no guarding, no masses and nontender Auscultation: normal bowel sounds Other: Copiuous foul smelling vaginal discharge. Cuff in tact. no erythema, no separation Extrem General: normal to inspection Results Last Vital Signs Temp 98.1 F 01/21/20 18:34 Pulse 66 01/21/20 18:34 Resp 18 01/21/20 18:34 BP 121/71 01/21/20 18:34 Pulse Ox 97 01/21/20 18:34
== END 2020-01-21 19:15 | disposition home or self-care (01) ==
PROVIDERS: Emergency Provider Physician Assistant; PCP Nurse Practitioner Adult Health
DX: N89.8 Other specified noninflammatory disorders of vagina (principal); Y83.6 Removal of other organ (partial) (total) as the cause of abnormal reaction of the patient, or of later complication, without mention of misadventure at the time of the procedure; N99.89 Other postprocedural complications and disorders of genitourinary system; Z90.710 Acquired absence of both cervix and uterus
CPT/HCPCS: 99252; 99283

== ENCOUNTER 2020-01-28 15:36 | Outpatient (REF) | payer MEDICAID, SELFPAY ==
[2020-02-01 10:37] LABS: HSV 1 PCR, Varies Negative (Negative); Herpes Source See Comments
[2020-02-01 10:39] LABS: HSV 2 PCR, Varies Negative (Negative)
== END 2020-01-28 15:56 ==
LOC: LBN 15:36
PROVIDERS: PCP Nurse Practitioner Adult Health; Visit Provider Nurse Practitioner Adult Health
DX: Z11.59 Encounter for screening for other viral diseases (principal)
CPT/HCPCS: 87252; 87529

== ENCOUNTER 2020-06-22 10:15 | Outpatient (CLI) | payer MEDICAID, SELFPAY ==
[2020-06-25 15:10] LABS: Patient Race White; SARS-CoV-2 RNA Undetected (Undetected); SARS-CoV-2 Specimen Source Nasal
== END 2020-06-22 10:35 ==
PROVIDERS: PCP Nurse Practitioner Adult Health; Visit Provider Nurse Practitioner Adult Health
DX: Z11.59 Encounter for screening for other viral diseases (principal); Z20.828 Contact with and (suspected) exposure to other viral communicable diseases
CPT/HCPCS: U0003

== ENCOUNTER 2021-04-22 08:01 | Emergency (ER) | payer MEDICAID, SELFPAY ==
[2021-04-22 08:10] VITALS: BP 108/69; PULSE 84; RESP 18; TEMP 36.7; O2SAT 100
[2021-04-22 08:15] LABS: Bilirubin Negative (Negative); Blood Negative (Negative); Clarity Sl Cloudy (Clear); Glucose Negative (Negative); Ketones Negative (Negative); Leukocyte Esterase Negative (Negative); Nitrite Negative (Negative); Specific Gravity 1.025 (1.005-1.025)
--- NOTE | 2021-04-22 08:30 | DI.CT_ITS ---
Exam(s) CT ABDOMEN PELVIS W EXAM: CT ABDOMEN PELVIS W INDICATION: pain rlq, ttp. COMPARISON: CT CT ABDOMEN PELVIS W from 01/19/2020 TECHNIQUE: FINDINGS: CT examination of the abdomen and pelvis was performed with a bolus infusion of 90 cc of Omnipaque 35 0. Images obtained through the lung bases are unremarkable. The liver is unremarkable in appearance. Gallbladder and bile ducts are CT normal. Pancreas appears normal. Spleen is unremarkable in appearance. Adrenals appear normal. There is an apparent right renal cortical scar containing calcification. No evidence of urinary trac t obstruction. No additional calcification seen. Urinary bladder unremarkable. Abdominal aorta is of normal diameter and no major vascular abnormality is seen. No abdominal wall hernia. No abdominal or pelvic adenopathy. There is a 16 millimeter presumed corpus luteum on the right. There may be a small quantity of free pelvic fluid. Uterus not specifically visualized, please correlate regarding prior hysterectomy. Appendix is normal. No evidence of diverticulitis or bowel obstruction. IMPRESSION: Apparent corpus luteum/collapsed cyst, right adnexal region. Small quantity of free pelvic fluid is nonspecific. No other significant findings. RADIATION DOSE DELIVERED: 782.72mGy.cm Total DLP 782.72mGy.cm Total DLP CTDIvol RADIATION OPTIMIZATION: All CT scans at this facility use at least one of these dose optimization te chniques: automated exposure control; mA and/or kV adjustment per patient size (includes targeted exa ms where dose is matched to clinical indication); or iterative reconstruction.
--- NOTE | 2021-04-22 08:34 | W.ED.GENAD ---
Discharge Plan Disposition Patient Disposition: HOME Condition: Stable Discharge Details Clinical Impression: Adnexal cyst, Right lower quadrant abdominal pain Primary Care Provider: Ana Hendrix ED Provider: Hitesh Blevins Home Meds and New Rx's Prescriptions: Continued memantine 5 mg tablet 5 mg PO BID Qty: 60 RF: 5 hydroxyzine HCl 10 mg tablet 10 mg PO QHS Qty: 90 RF: 3 rizatriptan 5 mg tablet 5 mg PO ONCE PRN (Reason: migraine headache) Qty: 12 RF: 11 prochlorperazine maleate 5 mg tablet 5 - 10 mg PO TID PRN (Reason: headaches) Qty: 90 RF: 2 Botox 100 unit recon soln 155 unit IM ONCE RF: 0 sertraline 100 mg tablet 100 mg PO DAILY Qty: 90 RF: 3 epinephrine [EpiPen 2-Jovi] 0.3 mg/0.3 mL auto-injector 0.3 mg IJ AC PRN (Reason: bee venom) Qty: 2 RF: 0 topiramate [Topamax] 25 mg tablet See Rx Instructions .ROUTE .COMPLEX MDD 50mg Qty: 180 RF: 3 Discharge Instructions Instructions: Abdominal Pain (ED) Additional Instructions: You have a small adnexal cyst noted on CT of the abdomen pelvis located in your right lower abdomen. Please be sure to follow-up with gynecology. Call tomorrow. Please take ibuprofen over the counter. Take 600mg by mouth every 6 hours as needed for pain. Return to the ER immediately for any worsening or new concerning symptoms. Referrals: Mary Eason DO [OSTEOPATHIC DOCTOR] - Ana Hendrix, VALIDATION TECHNICIAN [Primary Care Provider] - Discharge Data Discharge Date/Time-TO BE ENTERED AT DEPARTURE: 04/22/21 10:42 Medical Decision Making 841-- 30year-old female with history of prior pelvic congestion syndrome, status post hysterectomy, here with 1 to 2 hours of severe right lower quadrant abdominal pain. Tender in the right lower quadrant with guarding. Hemodynamically stable. Concern for acute appendicitis. Plan to obtain CT of the abdomen pelvis to assess for acute life-threatening surgical process. Offered analgesic and patient declined. Will maintain n.p.o. status and provide IV fluid maintenance. 1029 --CT the abdomen pelvis interpreted by radiology: There is a small enhancing adnexal cyst in the right. This could be hemorrhagic and may correspond to the patient's right lower quadrant pain. There is no other new acute abnormality. Appendix is noted as no evidence of appendicitis. Labs reviewed and nondiagnostic. No leukocytosis. I called and spoke with Dr. Nguyen, on-call SEARCH ENGINE MARKETING SPECIALIST and discussed ED presentation and course including diagnostics. She recommends outpatient follow-up. Patient reassessed, I discussed results with her. She is agreeable to Toradol and Tylenol. She will follow up with gynecology this week. I encouraged to return immediately for any worsening or new concerning symptoms. Usual customary discharge instructions reviewed with patient. HPI General Mode of arrival: ambulatory. Date/Time Provider Initiated Documentation: 04/22/21 08:09. Limitations to Documentation: no limitations. Information obtained by: patient. HPI Narrative: 30-year-old female presents with chief complaint of abdominal pain. Patient notes she woke up and shortly thereafter developed pain in her right lower quadrant. Pain is been present for the past 1 to 2 hours. Pain is severe. Worse with certain positions including standing. She has no associated nausea or vomiting. No change in bowel movement. No urinary symptoms. Related Data Home Medications Medication Instructions Recorded Confirmed topiramate 25 mg tablet See Rx Instructions .ROUTE 01/29/21 04/22/21 .COMPLEX #180 tab MDD 50mg epinephrine 0.3 mg/0.3 mL 0.3 mg IJ AC PRN #2 ml 02/19/21 04/22/21 injection, auto-injector onabotulinumtoxinA 100 unit 155 unit IM ONCE ea 02/19/21 04/22/21 solution for injection sertraline 100 mg tablet 100 mg PO DAILY #90 tab 02/19/21 04/22/21 hydroxyzine HCl 10 mg tablet 10 mg PO QHS #90 tab 02/22/21 04/22/21 memantine 5 mg tablet 5 mg PO BID #60 tab 02/22/21 04/22/21 prochlorperazine maleate 5 mg 5 - 10 mg PO TID PRN #90 tab 02/22/21 04/22/21 tablet rizatriptan 5 mg tablet 5 mg PO ONCE PRN #12 tab-cap 02/22/21 04/22/21 Previous Rx's Medication Instructions Recorded topiramate 25 mg tablet See Rx Instructions .ROUTE 01/29/21 .COMPLEX #180 tab MDD 50mg epinephrine 0.3 mg/0.3 mL 0.3 mg IJ AC PRN #2 ml 02/19/21 injection, auto-injector sertraline 100 mg tablet 100 mg PO DAILY #90 tab 02/19/21 hydroxyzine HCl 10 mg tablet 10 mg PO QHS #90 tab 02/22/21 memantine 5 mg tablet 5 mg PO BID #60 tab 02/22/21 prochlorperazine maleate 5 mg 5 - 10 mg PO TID PRN #90 tab 02/22/21 tablet rizatriptan 5 mg tablet 5 mg PO ONCE PRN #12 tab-cap 02/22/21 Allergies Allergy/AdvReac Type Severity Reaction Status Date / Time bee venom protein (honey bee) Allergy Severe Verified 04/22/21 08:15 General Stated Complaint: Abd Prob ALEC: 3 Review of Systems All systems reviewed & are unremarkable except as noted in HPI and below Constitutional Constitutional: Denies fever(s) Gastrointestinal Gastrointestinal: Reports as per HPI [facility] Medical History Abnormal cervical Papanicolaou smear 2011, 02/22/15 nml neg HPV Allergic rhinitis Anxiety With depressive components in Winter PTSD components Migraine Nephrolithiasis R Pelvic pain Post concussive syndrome Recurrent urinary tract infection (01/23/18) RX Macrobid; [facility] Surgical History History of hemorrhoidectomy (~2012) Hx of cystoscopy S/P hysterectomy (~12/22/19) with bilateral Salpingoectomy Family History Father Substance abuse opiate Social History Smoking/Tobacco Use Status: Never Smoking risk assessment performed?: Yes Alcohol Intake: never Drug use: Never Substance use type: does not use Adopted: No Caregiver/Support person: No Foster care: No Household members: family Housing: house Number of Children: 4 Communication Needs: Corrective Lenses Education Level: college Do you need help understanding health information?: Rarely 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; 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 Pets and animals: Yes Pets and animals: cat(s), dog(s) and farm animals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 Do you think of yourself as: straight/heterosexual Current gender identity: female What is your relationship status?: living with partner How often do you talk on the phone with friends or family?: three or more times per week How often do you get together with friends or relatives?: once per week Do you belong to any clubs or organized social groups?: no Panel score (0-1 are the most socially isolated patients): 2 What type of physical activity do you participate in: none Duration: 15-30 minutes/day Frequency: 1-2 times per week Leah/Evangelical: Gnosticism Special leah needs: No Seatbelt use: always Drive intox 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 w/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 Working smoke detector in home: Yes Fire extinguisher in home: Yes Carbon monox detector in home: Yes Do you feel safe at home: Yes Do you feel safe in your relationship?: Yes Female Reproductive History Menstrual Age of Menarche: 13 control method: progestin IUCD History History 2 Para 2 Hx # Term Pregnancies Multiple births Hx # Pregnancies Ectopic pregnancies AB induced Hx Number of Living Children AB spontaneous Exam Const General: cooperative Other: Lying in right lateral decubitus with hips flexed HENMT Mouth: moist mucous membranes Eyes Conjunctivae: normal conjunctivae Sclera: normal sclerae Neck Neck: trachea midline and supple Resp Auscultation: clear to auscultation bilaterally, no rales, no rhonchi and no wheezes Cardio Rate: regular rate and not tachycardic Rhythm: regular rhythm GI Palpation: soft, not firm, guarding in the RLQ, no masses, not rigid and tender in the RLQ Skin General skin exam: no rashes or lesions noted Neuro General: patient alert, patient awake, patient oriented x3 and tone normal Extrem General: no edema Psych Appearance: grossly normal Mental Status: mental status grossly normal Speech and Movement: speech and movement normal Course Vital Signs Vital signs: Vital Signs Temperature 36.7 C 04/22/21 08:10 Pulse 84 04/22/21 08:10 Respiratory Rate 18 04/22/21 08:10 Blood Pressure 108/69 04/22/21 08:10 Pulse Oximetry 100 04/22/21 08:10 Temperature 36.7 C 04/22/21 08:10 Temperature Source Temporal Artery Scan 04/22/21 08:10 Pulse 84 04/22/21 08:10 Respiratory Rate 18 04/22/21 08:10 Respiratory Effort Non-Labored 04/22/21 08:14 Blood Pressure 108/69 04/22/21 08:10 Blood Pressure Position Supine 04/22/21 08:10 Pulse Oximetry 100 04/22/21 08:10 Oxygen Delivery Method Room Air 04/22/21 08:10 Oxygen Flow Rate 0 04/22/21 08:10 Pain Level 6 04/22/21 08:10 Lab/Test Results Lab/Test Results: Laboratory Tests Range/Units 04/22/21 08:08 Urine Color (Yellow) Yellow Urine Clarity (Clear) Sl Cloudy Urine pH (5-8) 7.0 Ur Specific [place] (1.005-1.025) 1.025 Urine Protein (Negative) mg/dL Negative Urine Ketones (Negative) mg/dL Negative Urine Blood (Negative) Negative Urine Nitrite (Negative) Negative Urine Bilirubin (Negative) Negative Urine Urobilinogen (Up TO 0.2) EU/dL 1.0 H Ur Leukocyte Esterase (Negative) Negative Urine Glucose (Negative) mg/dL Negative
[2021-04-22] MEDS: Lactated Ringers 1,000 ML 125 ML IV (08:42)
[2021-04-22 08:52] LABS: Abs Immature Grans 0.01 10^3/uL (0.0-0.06); Absolute Basophil Count 0.13 10^3/uL (0.0-0.2); Absolute Eosinophil Count 0.65 10^3/uL (0.0-0.7); Absolute Lymphocyte Count 1.59 10^3/uL (1.2-3.4); Absolute Monocyte Count 0.57 10^3/uL (0.1-0.8); Absolute Neutrophil Count 3.77 10^3/uL (1.2-6.7); Basophils % 1.9; Eosinophils % 9.7; HCT 42.7 % (36.0-46.0); HGB 14.2 g/dL (11.2-15.7); Immature Grans % 0.1; Lymphocytes % 23.7; MCH 29.9 pg (27.0-33.0); MCHC 33.3 % (32.0-36.0); MCV 89.9 fL (80-95); MPV 9.8 fL (8.0-11.0); Monocytes % 8.5; Neutrophils % 56.1; Nucleated RBC 0 %; Platelet Count 275 10^3/uL (130-400); RBC 4.75 10^6/uL (3.93-5.22); RDW 11.6 % (11.7-14.6); WBC 6.72 10^3/uL (4.4-10.8)
[2021-04-22 09:04] LABS: ALT 15 U/L (14-59); AST 11 U/L (15-37); Albumin 4.2 g/dL (3.4-5.0); Alkaline Phosphatase 52 U/L (46-116); Anion Gap 7.1 mmol/L (3-11); BUN 12 mg/dL (7-18); Bilirubin, Total 0.4 mg/dL (0.2-1.0); CO2 25.9 mmol/L (21.0-32.0); Calcium 8.8 mg/dL (8.5-10.1); Chloride 108 mmol/L (98-107); Glucose 90 mg/dL (74-106); Lipase 150 U/L (73-393); Potassium 3.9 mmol/L (3.5-5.1); Sodium 141 mmol/L (136-145); Total Protein 7.8 g/dL (6.4-8.2)
[2021-04-22] MEDS: Normal Saline Flush 10 ML SYR IVP (09:35)
[2021-04-22] MEDS: Omnipaque 350 MG/ML 100 ML BTL IV (09:35)
--- NOTE | 2021-04-22 10:11 | DI.VRAD_ITS ---
PROCEDURE INFORMATION: Exam: CT Abdomen And Pelvis With Contrast Exam date and time: 04/22/2021 8:32 AM Age: 30 years old Clinical indication: Other: Pain rlq, ttp; Prior surgery; Surgery date: 6+ months; Surgery type: Hysterectomy TECHNIQUE: Imaging protocol: Computed tomography of the abdomen and pelvis with contrast. Radiation optimization: All CT scans at this facility use at least one of these dose optimization techniques: automated exposure control; mA and/or kV adjustment per patient size (includes targeted exams where dose is matched to clinical indication); or iterative reconstruction. Contrast material: OMNIPAQUE 350; Contrast volume: 90 ml; Contrast route: INTRAVENOUS (IV); Other contrast: pain rlq, ttp; COMPARISON: CT ABDOMEN PELVIS W 19/01/2020 15:47 FINDINGS: Lungs: Visualized lung bases are clear. Liver: Normal. No mass or intrahepatic biliary ductal dilatation. Gallbladder and bile ducts: Normal. No calcified stones. No ductal dilation. Pancreas: Normal. No mass or ductal dilation. Spleen: Normal. No splenomegaly. Adrenal glands: Normal. No mass. Kidneys and ureters: Small cortical scar in the upper pole of the right kidney again is noted.. No hydronephrosis. Stomach and bowel: Unremarkable. No obstruction. No mucosal thickening or visible mass. There is a large amount of retained fecal material throughout the colon Appendix: No evidence of appendicitis. Intraperitoneal space: Unremarkable. No free air. No significant fluid collection. Vasculature: Unremarkable. No abdominal aortic aneurysm or significant atherosclerosis. Lymph nodes: No enlarged retroperitoneal or mesenteric lymph nodes. Urinary bladder: No mass or wall thickening. Reproductive: Previous hysterectomy. Prior study noted prominent venous enhancement within the pelvis but this is less noticeable today. There is a 15 mm cyst with an enhancing wall in the right adnexal region. This was not present previously. This could be a hemorrhagic cyst. Bones/joints: Unremarkable. Bilateral L5 pars defects again are noted. Soft tissues: Unremarkable. IMPRESSION: There is a small enhancing adnexal cyst on the right. This could be hemorrhagic and may correspond to the patient's right lower quadrant pain. There is no other new acute abnormality. Dictated and Authenticated by: Minh Britt MD. Ordering:DOMINGA Proctor MD
[2021-04-22] MEDS: Ketorolac 15 MG/ML VIAL IVP (10:35)
[2021-04-22] MEDS: Acetaminophen 325 MG TAB 650 MG PO (10:36)
[2021-04-22 10:40] VITALS: BP 102/62; PULSE 64; RESP 20; TEMP 37; O2SAT 100
== END 2021-04-22 10:42 | disposition home or self-care (01) ==
PROVIDERS: Emergency Provider Student in an Organized Health Care Education/Training Program; PCP Nurse Practitioner Adult Health
DX: R10.31 Right lower quadrant pain (principal); N83.11 Corpus luteum cyst of right ovary
CPT/HCPCS: 36415; 80053; 83690; 96361; 96374; 99285; 74177; 81003; 85025; 99284; J1885; J3490

== ENCOUNTER 2021-08-21 01:02 | Outpatient (CLI) | payer MEDICAID, SELFPAY ==
--- NOTE | 2021-08-21 07:15 | DI.US_ITS ---
Exam(s) US PELVIS TRANSVAGINAL EXAM: US PELVIS TRANSVAGINAL CLINICAL HISTORY: R sided pelvic pain, hx hemorrahgic cyst,adnexal cyst,n94.9,r10.2 TECHNIQUE: Ultrasound of the pelvis was performed both transabdominal and transvaginal. COMPARISON: US US PELVIS TRANSVAGINAL from 10/07/2019 FINDINGS: UTERUS: Uterus is surgically absent. RIGHT OVARY: Measures 3.7 x 3.5 x 2.5 cm There is a unilocular cyst in the right ovary which measures 2.9 x 2.9 x 2.1 cm. LEFT OVARY: Measures 2 x 1.1 x 1.8 cm No significant cysts nor masses evident in the left ovary. CUL-DE-SAC: No free fluid evident. IMPRESSION: 1. Uterus is surgically absent. 2. There is a 2.9 x 2.9 x 2.1 cm cyst in the right ovary. 3. No significant left ovarian findings. No free fluid DATA REPOSITORY:
== END 2021-08-21 01:22 ==
PROVIDERS: PCP Nurse Practitioner Adult Health; Visit Provider Nurse Practitioner Women's Health
DX: N94.89 Other specified conditions associated with female genital organs and menstrual cycle (principal); R10.2 Pelvic and perineal pain; N83.291 Other ovarian cyst, right side
CPT/HCPCS: 76830; 76856

== ENCOUNTER 2021-12-24 15:34 | Outpatient (REF) | payer MEDICAID, SELFPAY ==
[2021-12-24 20:38] LABS: Abs Immature Grans 0.02 10^3/uL (0.0-0.06); Absolute Basophil Count 0.16 10^3/uL (0.0-0.2); Absolute Lymphocyte Count 2.47 10^3/uL (1.2-3.4); Absolute Monocyte Count 0.89 10^3/uL (0.1-0.8); Absolute Neutrophil Count 5.45 10^3/uL (1.2-6.7); Basophils % 1.7; Eosinophils % 5.3; Immature Grans % 0.2; MCH 30.1 pg (27.0-33.0); MCHC 33.3 % (32.0-36.0); MCV 90 fL (80-95); MPV 9.8 fL (8.0-11.0); Monocytes % 9.4; Neutrophils % 57.4; Platelet Count 320 10^3/uL (130-400); RBC 4.65 10^6/uL (3.93-5.22); RDW 11.5 % (11.7-14.6); WBC 9.49 10^3/uL (4.4-10.8)
[2021-12-26 11:09] LABS: Lyme Ab w Rflx to Lyme Confirm Negative (Negative)
[2021-12-27 00:15] LABS: Anaplasma phagocytophilum Negative (Negative); B. miyamotoi PCR Negative (Negative); Babesia divergens/MO-1 Negative (Negative); Babesia duncani Negative (Negative); Babesia microti Negative (Negative); Ehrlichia chaffeensis Negative (Negative); Ehrlichia ewingii/canis Negative (Negative); Ehrlichia muris eauclairensis Negative (Negative)
== END 2021-12-24 15:35 | disposition home or self-care (01) ==
LOC: LBN 15:34
PROVIDERS: PCP Nurse Practitioner Adult Health; Visit Provider Family Medicine
DX: R10.9 Unspecified abdominal pain (principal); Z11.8 Encounter for screening for other infectious and parasitic diseases; R82.998 Other abnormal findings in urine
CPT/HCPCS: 87798; 85025; 86618; 87086

== ENCOUNTER 2022-02-15 04:37 | Emergency (ER) | payer MEDICAID, SELFPAY ==
[2022-02-15 04:46] VITALS: BP 147/94; PULSE 92; RESP 18; TEMP 36.7; O2SAT 99
--- NOTE | 2022-02-15 05:02 | W.ED.GENAD ---
Discharge Plan Disposition Patient Disposition: STILL A PATIENT Condition: Serious Discharge Details Chief Complaint: Abd Prob Clinical Impression: Psychosis Primary Care Provider: Ana Hendrix ED Provider: Lex Croft Home Meds and New Rx's Prescriptions: No Action memantine 10 mg tablet 10 mg PO BID Qty: 180 3RF zonisamide 100 mg capsule 200 mg PO HS Qty: 180 3RF Botox 100 unit recon soln 155 unit IM ONCE Rx Instructions: q 90 days by ENT cgc hydroxyzine HCl 10 mg tablet See Rx Instructions PO QHS PRN (Reason: insomnia and/or itching) Qty: 180 3RF Rx Instructions: 10-20mg PO every day at bedtime PRN; rizatriptan 5 mg tablet 5 mg PO ONCE PRN (Reason: migraine headache) Qty: 12 11RF Rx Instructions: May repeat dose x1 after 2 hours if first dose ineffective duloxetine 30 mg capsule,delayed release(DR/EC) 30 mg PO .bedtime Qty: 90 3RF Linzess 145 mcg capsule 145 mcg PO .1-2 times/week PRN (Reason: chronic constipation) Qty: 30 1RF Rx Instructions: Best to take 30min or more prior to 1st meal of the day for chronic constipation epinephrine 0.3 mg/0.3 mL auto-injector See Rx Instructions .ROUTE .COMPLEX Qty: 2 1RF Dose Instruction: INJECT 0.3 ML INTO THE MUSCLE NEEDED FOR BEE VENOM Rx Instructions: INJECT 0.3 ML INTO THE MUSCLE NEEDED FOR BEE VENOM naproxen 500 mg tablet 500 mg PO BID PRN (Reason: pain) Qty: 40 0RF Rx Instructions: Start by taking with food 2x/d x4 days, then PRN pain. oxycodone-acetaminophen [Endocet] 5-325 mg tablet 1 tab PO Q8H MDD 4 PRN (Reason: pain) Qty: 20 0RF prochlorperazine maleate 5 mg tablet 5 - 10 mg PO TID PRN (Reason: headaches) Qty: 30 0RF Rx Instructions: Take 1-2 tabs every 8 hours as needed for headaches. ondansetron HCl 4 mg tablet 4 mg PO Q6H PRN (Reason: nausea and vomiting) Qty: 10 0RF Medical Decision Making This is a 31-year-old female with a past medical history of pelvic congestion syndrome, subsequent hysterectomy bilateral salpingectomy, with planned right-sided oophorectomy scheduled for later this week, presents today for right-sided abdominal pain. The patient states that she has been having continued worsening right-sided pain over the last 3 weeks. It is been unresponsive to oral contraceptive therapy. Pain got notably worse over the last 12 to 24 hours. Worse with movement and palpation. Improved by nothing. Patient denies any vomiting and diarrhea. Patient did have some improvement before with Tylenol and Motrin, but she is now still currently having the pain. She denies any other complaints at this time. She states that the pain feels similar/identical to her previous pelvic congestion syndrome pain. Physical exam demonstrates mild right lower quadrant abdominal tenderness. Upon review of the patient's history, and other visits, this seems to be the primary location for her pain from her pelvic congestion syndrome. Obviously the appendix is also in this area, however with the clinical timing of her pain her signs and symptoms at this time appear to be inconsistent with acute appendicitis. Symptoms also appear inconsistent with ovarian torsion. Suspect that her symptoms are likely secondary to her chronic pelvic congestion. I did discuss CT imaging versus ultrasound, and although no ultrasound is available now there will be some ultrasound available in the next 2 hours. Patient states very clearly that she would like to hold off on CT imaging at this time, and would prefer ultrasound. She understands risks and benefits of this. We will get laboratory work-up, schedule ultrasound for this morning in 2 hours, monitor closely and reassess. 5:38 AM Laboratory work-up shows no white count bandemia or left shift. Symptoms still appear notably inconsistent with acute appendicitis at this time. Patient's pain is notably improved. We will plan for ultrasound and continued monitoring. HPI General Date/Time Provider Initiated Documentation: 02/15/22 04:38. HPI Narrative: This is a 31-year-old female with a past medical history of pelvic congestion syndrome, subsequent hysterectomy bilateral salpingectomy, with planned right-sided oophorectomy scheduled for later this week, presents today for right-sided abdominal pain. The patient states that she has been having continued worsening right-sided pain over the last 3 weeks. It is been unresponsive to oral contraceptive therapy. Pain got notably worse over the last 12 to 24 hours. Worse with movement and palpation. Improved by nothing. Patient denies any vomiting and diarrhea. Patient did have some improvement before with Tylenol and Motrin, but she is now still currently having the pain. She denies any other complaints at this time. She states that the pain feels similar/identical to her previous pelvic congestion syndrome pain. Related Data Home Medications Medication Instructions Recorded Confirmed onabotulinumtoxinA 100 unit 155 unit IM ONCE 02/19/21 12/26/21 solution for injection (Botox) linaclotide 145 mcg capsule 145 mcg PO .1-2 times/week PRN 08/23/21 12/26/21 (Linzess) chronic constipation #30 caps hydroxyzine HCl 10 mg tablet See Rx Instructions PO QHS PRN 09/11/21 12/26/21 insomnia and/or itching #180 tabs rizatriptan 5 mg tablet 5 mg PO ONCE PRN migraine headache 09/11/21 12/26/21 #12 tab-caps memantine 10 mg tablet 10 mg PO BID #180 tabs 10/09/21 12/26/21 zonisamide 100 mg capsule 200 mg PO HS #180 caps 10/09/21 12/26/21 duloxetine 30 mg capsule,delayed 30 mg PO .bedtime #90 caps 12/26/21 12/26/21 release epinephrine 0.3 mg/0.3 mL See Rx Instructions .Route 01/20/22 injection, auto-injector .COMPLEX #2 ea naproxen 500 mg tablet 500 mg PO BID PRN pain #40 tabs 01/28/22 oxycodone-acetaminophen 5 mg-325 1 tab PO Q8H PRN pain #20 tabs 01/29/22 mg tablet (Endocet) prochlorperazine maleate 5 mg 5 - 10 mg PO TID PRN headaches #30 01/30/22 tablet tabs ondansetron HCl 4 mg tablet 4 mg PO Q6H PRN nausea and 02/12/22 vomiting #10 tabs Previous Rx's Medication Instructions Recorded linaclotide 145 mcg capsule 145 mcg PO .1-2 times/week PRN 08/23/21 (Linzess) chronic constipation #30 caps hydroxyzine HCl 10 mg tablet See Rx Instructions PO QHS PRN 09/11/21 insomnia and/or itching #180 tabs rizatriptan 5 mg tablet 5 mg PO ONCE PRN migraine headache 09/11/21 #12 tab-caps memantine 10 mg tablet 10 mg PO BID #180 tabs 10/09/21 zonisamide 100 mg capsule 200 mg PO HS #180 caps 10/09/21 duloxetine 30 mg capsule,delayed 30 mg PO .bedtime #90 caps 12/26/21 release epinephrine 0.3 mg/0.3 mL See Rx Instructions .Route 01/20/22 injection, auto-injector .COMPLEX #2 ea naproxen 500 mg tablet 500 mg PO BID PRN pain #40 tabs 01/28/22 oxycodone-acetaminophen 5 mg-325 1 tab PO Q8H PRN pain #20 tabs 01/29/22 mg tablet (Endocet) prochlorperazine maleate 5 mg 5 - 10 mg PO TID PRN headaches #30 01/30/22 tablet tabs ondansetron HCl 4 mg tablet 4 mg PO Q6H PRN nausea and 02/12/22 vomiting #10 tabs Allergies Allergy/AdvReac Type Severity Reaction Status Date / Time bee venom protein (honey bee) Allergy Severe Verified 11/27/21 09:47 General Stated Complaint: Abd Prob ALEC: 3 Review of Systems All systems reviewed & are unremarkable except as noted in HPI and below PFSH All Active Problems (Updated 02/15/22 @ 07:25 by Lex Croft DO) Psychosis (Acute) Pelvic pain (Acute) Constipation (Acute) Adjustment disorder with depressed mood (Acute) Chronic nonintractable headache (Acute) 08/21/20 Therapeutic Botox-[facility] 04/13/21-Trigger Point Injection-[facility] Chronic daily headache (Acute) PTSD (post-traumatic stress disorder) (Chronic) Post concussive syndrome (Acute) Anxiety (Chronic) With depressive components in Winter PTSD components Migraine (Acute) Medical History Abnormal cervical Papanicolaou smear 2011, 02/22/15 nml neg HPV Acute sialoadenitis Adnexal cyst Allergic rhinitis Dizziness Nephrolithiasis R Pelvic pain resolved s/p RYAN Recurrent urinary tract infection (01/23/18) RX Macrobid; [facility] Surgical History History of hemorrhoidectomy (~2012) Hx of cystoscopy S/P hysterectomy (~12/22/19) with bilateral Salpingoectomy Family History Father Substance abuse opiate Other Chronic daily headache Social History Smoking/Tobacco Use Status: Never Smoking risk assessment performed?: Yes Alcohol Intake: never Drug use: Never Substance use type: does not use Adopted: No Caregiver/Support person: No Foster care: No Household members: family Housing: house Number of Children: 4 Communication Needs: Corrective Lenses Education Level: college Do you need help understanding health information?: Rarely 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; 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 Pets and animals: Yes Pets and animals: cat(s), dog(s) and farm animals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 Do you think of yourself as: straight/heterosexual Current gender identity: female What is your relationship status?: living with partner How often do you talk on the phone with friends or family?: three or more times per week How often do you get together with friends or relatives?: once per week Do you belong to any clubs or organized social groups?: no Panel score (0-1 are the most socially isolated patients): 2 What type of physical activity do you participate in: none Duration: 15-30 minutes/day Frequency: 1-2 times per week Leah/Denominational: Protestant Special leah needs: No Seatbelt use: always Drive intox or ride w/intox dray driver: No Working smoke detector in home: Yes Fire extinguisher in home: Yes Carbon monox detector in home: Yes Do you feel safe at home: Yes Do you feel safe in your relationship?: Yes Female Reproductive History Menstrual Age of Menarche: 13 control method: permanent sterilization Menopause type: surgical History History 2 Para 2 Hx # Term Pregnancies Multiple births Hx # Pregnancies Ectopic pregnancies AB induced Hx Number of Living Children AB spontaneous Exam Narrative Exam Narrative: 1.Const: Well-nourished, Well-developed, appearing stated age 2.Eyes: PERRL, no conjunctival injection, and symmetrical lids. 3.ENT: Atraumatic external nose and ears. Moist MM. Neck: Symmetric, trachea midline, No thyromegaly. 4.CVS: +S1/S2, No murmurs or gallops. Peripheral pulses 2+ and equal in all extremities. Brisk capillary refill in all extremities. 5.RESP: Unlabored respiratory effort. Clear to auscultation bilaterally. No wheezes rales or rhonchi 6.GI: Soft, nondistended. Mild voluntary guarding. Pain notably present in the right lower abdominal and right upper pelvic quadrants. Positive referral of pain from the left to the right. No pain in the right upper or left upper quadrants. 7.MSK: Normocephalic/Atraumatic, Extremities w/o deformity or ttp No cyanosis or clubbing, Normal movement of all extremities 8.Skin: Warm, Dry. No rashes or lesions. 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 Sensation grossly intact, no focal neurologic deficits. 10.Psych: (AAO) x3. Appropriate mood and affect Course Vital Signs Vital signs: Vital Signs Temperature 36.7 C 02/15/22 04:46 Pulse 92 H 02/15/22 04:46 Respiratory Rate 18 02/15/22 04:46 Blood Pressure 147/94 H 02/15/22 04:46 Pulse Oximetry 99 02/15/22 04:46 Temperature 36.7 C 02/15/22 04:46 Temperature Source Skin 02/15/22 04:46 Pulse 92 H 02/15/22 04:46 Respiratory Rate 18 02/15/22 04:46 Blood Pressure 147/94 H 02/15/22 04:46 Blood Pressure Position Sitting 02/15/22 04:46 Pulse Oximetry 99 02/15/22 04:46 Oxygen Delivery Method Room Air 02/15/22 04:46 Oxygen Flow Rate 0 02/15/22 04:46
[2022-02-15 05:05] LABS: Abs Immature Grans 0.04 10^3/uL (0.0-0.06); Absolute Basophil Count 0.15 10^3/uL (0.0-0.2); Absolute Eosinophil Count 0.74 10^3/uL (0.0-0.7); Absolute Lymphocyte Count 2.32 10^3/uL (1.2-3.4); Absolute Monocyte Count 0.89 10^3/uL (0.1-0.8); Absolute Neutrophil Count 4.49 10^3/uL (1.2-6.7); Basophils % 1.7; Eosinophils % 8.6; HCT 41.3 % (36.0-46.0); HGB 14.2 g/dL (11.2-15.7); Immature Grans % 0.5; Lymphocytes % 26.9; MCH 30.4 pg (27.0-33.0); MCHC 34.4 % (32.0-36.0); MCV 88 fL (80-95); MPV 9.2 fL (8.0-11.0); Monocytes % 10.3; Platelet Count 306 10^3/uL (130-400); RBC 4.67 10^6/uL (3.93-5.22); RDW 11.7 % (11.7-14.6); RDW-SD 37.2 fL; WBC 8.63 10^3/uL (4.4-10.8)
[2022-02-15 05:19] LABS: ALT 21 U/L (14-59); AST 13 U/L (15-37); Albumin 4.1 g/dL (3.4-5.0); Alkaline Phosphatase 65 U/L (46-116); BUN 18 mg/dL (7-18); Bilirubin, Total 0.4 mg/dL (0.2-1.0); Calcium 8.7 mg/dL (8.5-10.1); Chloride 105 mmol/L (98-107); Glucose 102 mg/dL (74-106); Potassium 3.7 mmol/L (3.5-5.1); Sodium 139 mmol/L (136-145); Total Protein 7.6 g/dL (6.4-8.2)
[2022-02-15] MEDS: Ketorolac 15 MG/ML VIAL IVP ×2 (05:28→08:19)
[2022-02-15] MEDS: MORPHine 4 MG/ML SYR IVP ×2 (05:29→07:31)
--- NOTE | 2022-02-15 05:49 | DI.US_ITS ---
Exam(s) US PELVIS TRANSVAGINAL EXAM: US PELVIS TRANSVAGINAL CLINICAL HISTORY: right lower quad pain, eval appendix/ovary. TECHNIQUE: Transabdominal and transvaginal pelvic ultrasound was performed using standard protocol. COMPARISON: US US PELVIS TRANSVAGINAL from 08/21/2021 FINDINGS: UTERUS: Status post hysterectomy. OVARIES: Right: 2.8 x 2.4 x 1.6 cm Cyst or mass: No suspicious cystic or solid masses. Left: 3.5 x 1.9 x 2.6 cm Cyst or mass: No suspicious cystic or solid masses. DOPPLER: Color: Symmetric and uniform flow to both ovaries. CUL-DE-SAC: Free fluid: Small amount of fluid adjacent to the right ovary. Other: The right lower quadrant was evaluated sonographically. No sonographic evidence of an acute a ppendicitis is present. IMPRESSION: 1. No sonographic evidence of appendicitis. 2. Status post hysterectomy. 3. Unremarkable bilateral ovaries. 4. Results of this exam have been verbally communicated with provider. DATA REPOSITORY:
[2022-02-15 06:33] VITALS: BP 111/65; PULSE 64; RESP 14; TEMP 36.7; O2SAT 99
[2022-02-15 06:42] LABS: Source Nasal/Nares
[2022-02-15 07:32] LABS: COVID-19 PCR Negative (Negative)
[2022-02-15 08:17] LABS: Bilirubin Negative (Negative); Blood Negative (Negative); Clarity Clear (Clear); Glucose Negative (Negative); Ketones Negative (Negative); Leukocyte Esterase Negative (Negative); Nitrite Negative (Negative); Specific Gravity 1.025 (1.005-1.025); Urobilinogen 0.2 EU/dL (Up TO 0.2); pH 6.5 (5-8)
--- NOTE | 2022-02-15 09:10 | W.EDPROG ---
Date of service: 02/15/22 Time of Service: 09:10 Medical Decision Making Care was signed out by Dr. Croft, please see his documentation regarding initial ED presentation course. Plan at signout was to follow-up on abdominal and pelvic ultrasound and discuss with gynecology. Patient was given initial dose of Toradol 15 mg. She continued to have discomfort and a second dose of Toradol 15mg was given. Ultrasound was reviewed and interpreted by radiology who I spoke with: Small amount of free fluid around the right ovary, no ovarian pathology noted, no signs of appendicitis. Labs reviewed and nondiagnostic. No leukocytosis. I called and spoke with Dr. Eason, on-call mounter clarinets, she knows the patient well. Discussed ED presentation and course including diagnostic results. She recommends discharge with plan for surgery as scheduled next week. She recommends increasing oxycodone to 10 mg dosing. All labs and ultrasound results discussed with the patient. I discussed Dr. Eason's recommendations. Patient was encouraged to take Tylenol and ibuprofen. She was encouraged to only use oxycodone if needed for severe unbearable pain. Patient provided informed consent to treat with opioid. Disposition decision was made weighing the risks and benefits of hospitalization versus outpatient treatment, the risk for further decompensation, and the patient's wishes. The patient was stable and requested discharge. Prior to discharge, my usual and customary return precautions were reviewed with the patient - this included follow-up instructions and reason to return to the emergency department if condition worsens, does not improve as expected, or other new concerns arise. Sign Out Sign Out Data: Sign Out Comment: Abdominal pain, history of pelvic congestion. Pending ultrasound results. Follow-up with obstetrics posttest. Last updated by Lex Croft DO at 02/15/22 07:28 Discharge Plan Disposition Patient Disposition: HOME Condition: Serious Discharge Details Clinical Impression: Pelvic pain Primary Care Provider: Ana Hendrix ED Provider: Hitesh Blevins Home Meds and New Rx's Prescriptions: New oxycodone 10 mg tablet 10 mg PO BID PRN (Reason: severe pain) Qty: 10 0RF Continued memantine 10 mg tablet 10 mg PO BID Qty: 180 3RF zonisamide 100 mg capsule 200 mg PO HS Qty: 180 3RF Botox 100 unit recon soln 155 unit IM ONCE Rx Instructions: q 90 days by ENT cgc hydroxyzine HCl 10 mg tablet See Rx Instructions PO QHS PRN (Reason: insomnia and/or itching) Qty: 180 3RF Rx Instructions: 10-20mg PO every day at bedtime PRN; rizatriptan 5 mg tablet 5 mg PO ONCE PRN (Reason: migraine headache) Qty: 12 11RF Rx Instructions: May repeat dose x1 after 2 hours if first dose ineffective epinephrine 0.3 mg/0.3 mL auto-injector See Rx Instructions .ROUTE .COMPLEX Qty: 2 1RF Dose Instruction: INJECT 0.3 ML INTO THE MUSCLE NEEDED FOR BEE VENOM Rx Instructions: INJECT 0.3 ML INTO THE MUSCLE NEEDED FOR BEE VENOM prochlorperazine maleate 5 mg tablet 5 - 10 mg PO TID PRN (Reason: headaches) Qty: 30 0RF Rx Instructions: Take 1-2 tabs every 8 hours as needed for headaches. ondansetron HCl 4 mg tablet 4 mg PO Q6H PRN (Reason: nausea and vomiting) Qty: 10 0RF Discharge Instructions Instructions: Pelvic Pain in Women (ED) Additional Instructions: Please use ibuprofen and Tylenol for pain --dose according to label. Please take oxycodone as prescribed only for severe pain. Please follow-up with gynecology as scheduled. Return to the ER immediately for any worsening or new concerning symptoms. Referrals: Mary Eason DO [OSTEOPATHIC DOCTOR] - Ana Hendrix NP [Primary Care Provider] -
[2022-02-15] MEDS: oxyCODONE 10 MG TAB PO (09:26)
[2022-02-15 09:37] VITALS: BP 111/65; PULSE 64; RESP 14; TEMP 36.7; O2SAT 99
== END 2022-02-15 09:36 | disposition home or self-care (01) ==
PROVIDERS: Student in an Organized Health Care Education/Training Program; Emergency Provider Student in an Organized Health Care Education/Training Program; PCP Nurse Practitioner Adult Health
DX: F29 Unspecified psychosis not due to a substance or known physiological condition (principal); R10.31 Right lower quadrant pain; R10.813 Right lower quadrant abdominal tenderness; Z20.822 Contact with and (suspected) exposure to COVID-19
CPT/HCPCS: 80053; 87635; 96374; 96375; 96376; 99285; 76830; 76856; 81003; 85025; J1885; J2270

== ENCOUNTER 2022-02-18 02:04 | Outpatient (CLI) | payer MEDICAID, SELFPAY ==
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
--- OUTSIDE RECORDS SUMMARY | 2022-02-18 02:11 | XMS_ITS | Encounter Summary ---
:1990 Author Organization [facility] Address [address] [place] [address] Care Team Providers Name Role Phone Ana Hendrix APRN Primary Care Provider Encounter Details Date Type Department Care Team Description 12/21/2019 TH Visit Physical Therapy at [facility] Post concussional syndrome; (TeleHealth) [facility] L, PT Nausea; [facility] Dizziness and giddiness; Drive Visual discomfort, unspecifi ed laterality; [place], [place] Headache[place] [id number] Social History Tobacco Use Types Packs/Day Years Used Date Never Smoker Smokeless Tobacco: Never Used Alcohol Use Standard Drinks/Week Comments Yes 0 (1 standard drink = 0.6 oz pure alcoho l) Maybe one mixed drink a month Sex Assigned at Date Recorded Not on file documented as of this encounter Miscellaneous Notes Treatment - Therapy - [facility] Bass, PT - 12/21/2019 2:00 PM EDT Rehabilitation Medicine - Telemedicine Encounter Patient: Lulú Oneil MR Number: [id number] Date of : 1990 Home [address]: [address] [place] [id number] Phone Number (Home, Mobile): Date of Visit: 12/21/2019 Patient Location at time of visit: bedroom at home; Lulú Oneil is aware that I will need to confirm this location each time we meet. Others in the same physical location as the patient: entire family This therapist is legally able to treat the patient in [place] and [place] via Telehealth due to license waiver agreement during Covid 19 crisis. NOTE: Lulú Oneil has verbally consented to participate in a Telemedicine visit with [facility] Bass PT as her Rehabilitation Medicine provider while the [facility] Covid 19 crisis is taking place. This Telemedicine visit was comprised of both Audio and Visual through a secure connection throughout the duration of this visit. Patient understands this is a therapy service and will be billed to her insurance. Patient consents that therapy or educational materials could be sent through [facility] or e-mail address at: [email or web address]. Lulú Oneil did not have any questions for me at this time and was informed the best way to reach me is through [facility]. Physical Therapy Daily Note Total treatment time: 45 minutes Total timed code treatment: 45 minutes Current Medicare Cert Period 11/29/2019 - 02/26/2020 Follow up visit for patient with ICD-10-CM 1. Postconcussional syndrome F07.81 2. Nausea R11.0 3. Dizziness and giddiness R42 4. Visual discomfort, unspecified laterality H53.149 5. Headache, chronic daily R51 S: Patient reports small improvement. Patient saw her [facility] Med department for return to work evaluation and was denied. Patient reports laproscopic hysterectomy scheduled for 12/22/2019. Baseline: Headache 5/10, Dizziness 0/10, Nausea 2/10, Fogginess 2/10 O: Therex: Neuromuscular Re-Ed (22285) 15 min Self Care/Home Management (04324) 30 min Self-care / home management ?? *Doorway pec stretch 3 ways 3x30s ?? Skilled discussion for sleep hygiene ?? Setting schedule similar to work schedule ?? Minimize napping ?? Establish bedtime routine ?? Skilled discussion for role of OT to aid with memory, cognition, return to work strategies ?? Skilled discussion for possible exacerbation of symptoms with additional stressor of major surgery ?? Keep up with visual exercises to tolerance as able, may reschedule 12/27 appointment Neuromuscular Re-ed ?? Gaze stabilization, seated supported ?? Week 2 head movement ex 1: target on wall 6-10 feet ?? Comfortable speed, quiet background, horizontal 32s, vertical 24s ?? Week 2 head movement ex 2: target stick at arm length ?? With metronome ?? Horizontal at 60 bpm for 8s ?? Vertical at 60 bpm for 5s ?? Without metronome ?? Horizontal at 45 bpm for 17s ?? Vertical at 40 bpm for 10s ?? Week 2 head movement ex 3: head/eye coordination - look at target, face target, alternate. Peripheral visual mckeon Draw an X on 5 post its. Arrange in X on the wall. Keeping your gaze on the central X, reach out and tap a peripheral X. Look as the target to see how close you were. Repeat for 1 minute without stopping. Increase difficulty by reaching across your body or moving post its further apart once 60s does notprovoke symptoms ?? Patient able to teach back technique ?? Reinforce focal point strategy *Long chart far, seated Read aloud from outermost columns, alternating left / right, repeat with next most inward row, repeat to innermost columns 2 reps, no errors, slowed, nausea increased * indicates elements added to home exercise program following instruction and practice in clinic A: Patient reports that Occ Med did not clear for return to work and believes this to be appropriate. Patient reports laproscopic hysterectomy scheduled for 12/22/2019. Patient responded to skilled discussion for possible exacerbation demonstrated by teach back of rationale. Patient reports small improvement in symptoms, especially the nausea. Patient progression demonstrated by improved tolerable duration of gaze stabilization at comfortable speed. Difficulty performing gaze stabilization at 60 bpm suggests cervical component to symptoms. Progressed exercises for neck pain, saccadic eye movement. Handouts sent via [employer] and [employer]. P: Progress gaze stabilization. Long chart. Reinforce symptom management, focal point strategy Treatment may include: Manual Techniques, Soft Tissue Mobilization, Stretching, Joint Mobilization, Therapeutic Exercise, Modalities (PRN to control pain and inflammation) hot or cold pack, Patient/Family Education, Body Mechanics, Posture, Home Exercise Program and Vestibular Interventions Precautions: seizure history contraindicates use of e-stim ?? Frequency and duration: 1/week x 6 weeks, adjusting as appropriate based on clinical and functional progress ?? Further assessment / planned intervention: ?? If in person: miniBest, cervical joint position error testing, cervical joint mobility and strength, manual therapy, measure convergence ?? Gaze stability, review/reinforce VOMS rule of 2s and focal point strategy, review use of reading strategies and CDC pamphlet CURRENT GOALS: Short term goals By 12/20/2019 ? 11/29/2019 ? Patient will be independent with home exercise program to facilitate management of symptoms and maintain or progress gains made within clinic Initiated ? Patient will improve VORx1 to at least 70 beats per minute for at least 1 minute with no increase insymptoms to facilitate gaze stabilization Unable ? Patient will improve VOR cancellation to WNL in order to decrease symptoms in crowds and busy visualenvironments provocative ? Patient will improve convergence to within patient's hand length from nose to facilitate maintainingfocus as objects approach in visual field. beyond hand length ? retirement goals By 01/10/2020 ? 11/29/2019 ? Patient will improve score to no more than 20 on the Post-Concussion Symptom Scale, indicating an improved ability to participate in daily activities unhindered by concussion related symptoms. 56 ? Patient will improve VORx1 to at least 100 beats per minute for at least 1 minute with no increase in symptoms to facilitate gaze stabilization Unable ? Patient will improve convergence to within 5 cm to facilitate maintaining focus as objects approach in visual field. beyond hand length of patient ? Patient will complete oculomotor exam with no exacerbation of VOMS symptoms >1 on 0-10 scale to indicate decreased affect of concussive symptoms on gaze stability increase in at least 1 symptom witheach activity ? Mireya Bass, PT, PT, ITPT, DPT [facility] Outpatient Rehabilitation documented in this encounter Plan of Treatment Not on filedocumented as of this encounter Visit Diagnoses Diagnosis Postconcussional syndrome Postconcussion syndrome Nausea Nausea alone Dizziness and giddiness Visual discomfort, unspecified lateralit y Headache, chronic daily Headache documented in this encounter Care Teams Tipple Supervisor Relationship Specialty Start Date End Date Ana Hendrix APRN PCP - General Geriatric Medicine 10/21/[address] [place] [address] documented as of this encounter
--- OUTSIDE RECORDS SUMMARY | 2022-02-18 02:11 | XMS_ITS | Encounter Summary ---
:1990 Author Organization [facility] Address [facility] [place] [address] Care Team Providers Name Role Phone Ana Hendrix APRN Primary Care Provider Encounter Details Date Type Department Care Team Description 01/03/2020 TH Visit Physical Therapy at [facility] Post concussional syndrome; (TeleHealth) [facility] L, PT Nausea; [facility] Dizziness and giddiness; Drive Visual discomfort, unspecifi ed laterality; [place], [place] Headache, chron ic daily [id number] Social History Tobacco Use Types Packs/Day Years Used Date Never Smoker Smokeless Tobacco: Never Used Alcohol Use Standard Drinks/Week Comments Yes 0 (1 standard drink = 0.6 oz pure alcoho l) Maybe one mixed drink a month Sex Assigned at Date Recorded Not on file documented as of this encounter Miscellaneous Notes Treatment - Therapy - [facility], PT - 01/03/2020 9:30 AM EDT Rehabilitation Medicine - Telemedicine Encounter Patient: Lulú Oneil MR Number: [id number] Date of : 1990 Home Address: [address] [place] [id number] Phone Number (Home, Mobile): Date of Visit: 01/03/2020 Patient Location at time of visit: bedroom at home; Lulú Oneil is aware that I will need to confirm this location each time we meet. Others in the same physical location as the patient: entire family This therapist is legally able to treat the patient in [place] and [place] via Telehealth due to license waiver agreement during Covid 19 crisis. NOTE: Lulú Oneil has verbally consented to participate in a Telemedicine visit with Mireya Bass PT as her Rehabilitation Medicine provider while the [facility] Covid 19 crisis is taking place. This Telemedicine visit was comprised of both Audio and Visual through a secure connection throughout the duration of this visit. Patient understands this is a therapy service and will be billed to her insurance. Patient consents that therapy or educational materials could be sent through [facility] or e-mail address at: [email or web address]. Lulú Oneil did not have any questions for me at this time and was informed the best way to reach me is through [facility]. Physical Therapy Daily Note Total treatment time: 30 minutes Total timed code treatment: 30 minutes Current Medicare Cert Period 11/29/2019 - 02/26/2020 Follow up visit for patient with ICD-10-CM 1. Postconcussional syndrome F07.81 2. Nausea R11.0 3. Dizziness and giddiness R42 4. Visual discomfort, unspecified laterality H53.149 5. Headache, chronic daily R51 S: Patient reports having had hysterectomy on 12/21, with emergency surgery to repair a blown artery 01/01/2020. Patient reports that symptoms have been better because she has been resting and not performing exercises. Baseline: Headache 4/10, Dizziness 0/10, Nausea 4/10, Fogginess 4/10 O: Therex: Neuromuscular Re-Ed (03323) 20 min Self Care/Home Management (44593) 10 min Self-care / home management ?? *pec stretch with B hands clasped behind back, pulling shoulders down and back 3x30s ?? Skilled discussion for rehab of hysterectomy ?? Avoid valsalva maneuvers that raise intraabdominal pressure Neuromuscular Re-ed ?? Gaze stabilization, seated unsupported ?? Week 2 head movement ex 1: target on wall 6-10 feet ?? Comfortable speed, quiet background, horizontal 35s, vertical 9s ?? Vertical with seated supported, head supported: 16s ?? Week 2 head movement ex 2: target stick at arm length ?? Horizontal at 45 bpm for 12s, 14 turns in 15s ?? Vertical at 40 bpm for 8 s, 7 s ?? Week 2 head movement ex 3: head/eye coordination - look at target, face target, alternate. ?? Horizontal: 16s, 11s ?? Patient reports difficulty with holding eyes right while turning head right ?? Vertical: 8s, 21s Long chart far, seated Skilled discussion for technique, not practiced in session as handout was not available. * indicates elements added to home exercise program following instruction and practice in clinic A: Patient reports having had hysterectomy on 12/21 and an emergency surgery for arterial bleeding on12/31. Patient reports that she hasn't been doing visual exercises as much since 12/21. Patient reports precaution for not lifting >10#, and is able to teach back avoiding Valsalva maneuvers. Reinforced gaze stabilization exercises, reinforcing vertical performance. Patient able to teach back Long chart technique. Patient has maintained slight gains made prior to surgery despite 12 day break from exercises. P: Progress gaze stabilization. Long chart. Reinforce [...] ? Mireya Bass, PT, PT, ITPT, DPT [facility] Outpatient Rehabilitation documented in this encounter Plan of Treatment Not on filedocumented as of this encounter Visit Diagnoses Diagnosis Postconcussional syndrome Postconcussion syndrome Nausea Nausea alone Dizziness and giddiness Visual discomfort, unspecified lateralit y Headache, chronic daily Headache documented in this encounter Care Teams [employer] Relationship Specialty Start Date End Date Ana Hendrix APRN PCP - General Geriatric Medicine 10/21/[address] [place] [address] documented as of this encounter
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
--- OUTSIDE RECORDS SUMMARY | 2022-02-18 02:11 | XMS_ITS | Encounter Summary ---
:1990 [place] [address] Care Team Providers Name Role Phone Elsi Castro RICKY Primary Care Provider Reason for Referral Consultation (Urgent) - Closed Specialty Diagnoses / Procedures Referred By Contact Refer red To Contact Urology Diagnoses right rachel ceron Andrew D, [place] [facility] [place] [facility] [place] [address] [place] [address] Referral ID Status Reason Start Date Expiration Date Visits V isits Requested Authorized [id number] Closed Consult, 10/18/2017 10/18/2018 1 1 Test & Treat Reason for Visit Reason Comments Flank Pain Encounter Details Date Type Department Care Team Description 10/18/2017 Emergency Emergency Department Bernardo Vazquez MD Flank pain [facility] [place] [address] [place] [address] [phone] (Wo rk) Social History Tobacco Use Types Packs/Day Years Used Date Never Smoker Smokeless Tobacco: Never Used Alcohol Use Standard Drinks/Week Comments Yes 0 (1 standard drink = 0.6 oz pure alcoho l) Maybe one mixed drink a month Sex Assigned at Date Recorded Not on file documented as of this encounter Last Filed Vital Signs Vital Sign Reading Time Taken Comments Blood Pressure 110/59 10/18/2017 5:05 PM EDT Pulse 67 10/18/2017 5:05 PM EDT Temperature 36.8 ??C (98.2 ??F) 10/18/2017 5:05 PM EDT Respiratory Rate 15 10/18/2017 5:05 PM EDT Oxygen Saturation 100% 10/18/2017 5:05 PM EDT Inhaled Oxygen Concentration - - Weight 62.1 kg (137 lb) 10/18/2017 5:05 PM EDT Height - - Body Mass Index 23.96 09/05/2014 9:44 AM EST documented in this encounter Discharge Instructions Discharge InstructionsRodrigo Parker MD - 10/18/2017 11:14 PM EDT You were evaluated in the Emergency Department for Flank pain. The Urology team went through your images and does not believe there is anything that they could intervene on that would improve your pain. Your 2 CT scans showed a small calcification in the upper part of the kidney but no other significant abnormalities of the causing pain. And per urology, that calcification would not be causing her pain. Your blood work and urine today were all reassuring, as was your ultrasound at the bedside. You were deemed stable for discharge as there is no evidence of an acute emergent process causing your symptoms. Urology will see you in clinic this week. A referral has been placed and they will contact you. Take Tylenol and ibuprofen and your other prescribed medications as needed. Also try using ice packsand warm compresses. Return to the emergency department for inability to tolerate oral intake due to vomiting, uncontrollable fevers, or any other concerns. documented in this encounter Medications at Time of Discharge Medication Sig Dispensed Refills Start Date End Date acetaminophen (Tylenol) Take 325-650 mg by 0 02/02 325 mg Tablet mouth Every 4 hours as needed. ciprofloxacin (CIPRO) 500 Take 500 mg by 0 10/22/2019 mg Tablet mouth 2 times daily. HYDROmorphone (DILAUDID) 4 Take 4 mg by mouth 0 10/22/2019 mg Tablet every 6 hours as needed for Pain. promethazine (PHENERGAN) Take 25 mg by mouth 0 10/22/2019 25 mg Tablet every 6 hours as needed for Nausea. documented as of this encounter ED Notes Margareth Hernandez RN - 10/18/2017 9:56 PM EDT Patient requesting krystina tunde. Discussed with MD, patient to remain NPO for now. Patient updated. Bernardo Amaro MD - 10/18/2017 7:38 PM EDT Brief Attending Note I cared for the patient with the resident physician. Please see Dr. Parker's note, associated with the encounter, for more details. HPI: Lulú Oneil is a 27 y.o. who presents to the ED with concern for infected urolithiasis. She states she was diagnosed with this earlier this week and had 2 admissions to [facility] for same where urology was reportedly unable to intervene and she was told to present to [facility] for urology evaluation. She has had ongoing pain despite use of 4 mg of Dilaudid. Subjective fevers. ROS: Pertinent positives and negatives are included in the history of present illness, otherwise 10 systems are reviewed and negative Gen: well appearing, NAD HENT: atraumatic, OP clear, mmm Pulm: CTA annette, no respiratory distress Card: RRR Abd: soft, nt Skin: warm and dry Neuro: speech fluent, no obvious deficit MS: No obvious deformity Psych: Normal mood Assessment: 27-year-old female with reported infected kidney stone. She is nontoxic appearing at present. We will obtain labs cough as well as outside records to determine what diagnostics she has already had. We will discuss with urology as needed. Bernardo Amaro MD 10/18/171938 Edwige Angelo RN - 10/18/2017 6:39 PM EDT Labs/IV in place, MD at bedside to assess, fluids infusing, plan for meds. Rodrigo Parker MD - 10/18/2017 6:25 PM EDT Lulú Oneil is an 27 y.o. female who presents to the ED with: Chief Complaint Patient presents with ??? Flank Pain I saw this patient 10/19/2017 at 1:04 AM HPI Lulú Oneil is a 27 y.o. female with~5 admissions to [facility] over the past 3 weeks initially for pyelonephritis, then question infected kidney stone, and intractable right flank pain. who presents to the Emergency Department for right flank pain. She underwent 2 CT scans and ultrasound which showed a calcification in the upper pole of the right kidney which was unclear whether it was scarring or a stone, but regardless it was nonobstructing. There were no ureteral stones. She underwent ureteroscopy which was unremarkable. Repeat CT scan showed dilation of the upper urinary as would be expected after ureteroscopy and again the calcification in the upper pole but no obstructing stones. The patient was t reated with multiple courses of antibiotics as well as antispasmodics which did not seem to improve her pain. She was repeatedly admitted for IV pain medication then discharged on p.o. narcotics. She has been taking 4 mg p.o. Dilaudid every 4 hours and is currently on ciprofloxacin. She also has been taking Phenergan. She states that it is not touching her pain and her pain is still an 8/10. Urology at the OSH was fairly perplexed as the cause of the patient's pain but they did not see anything amenable to intervention. There was mention that they would talk to urology here at [facility] for any further ideas. She denies vomiting at this time. She also denies fevers or chills. She complains of significant pain in the right flank and mild pain in the right lower quadrant of the abdomen. Review of Systems: Review of Systems 10 point review of systems performed. As per HPI. All other systems negative. Patient Vitals for the past 24 hrs: BP Temp Temp src Pulse Resp SpO2 Weight 10/18/17 1705 110/59 36.8 ??C (98.2 ??F) Oral 67 15 100 % 62.1 kg (137 lb) Physical Exam: Physical Exam Constitutional: She is oriented to person, place, and time. She appears well- developed and well-nourished. No distress. HENT: Head: Normocephalic and atraumatic. Eyes: Conjunctivae and EOM are normal. Neck: Normal range of motion. Neck supple. Cardiovascular: Normal rate and regular rhythm. Exam reveals no gallop and no friction rub. No murmur heard. Pulmonary/Chest: Effort normal and breath sounds normal. No respiratory distress. She has no wheezes. She has no rales. Abdominal: Soft. Bowel sounds are normal. She exhibits no distension. There is no tenderness. There is no rebound and no guarding. Genitourinary: Genitourinary Comments: Right CVA tenderness Musculoskeletal: Normal range of motion. She exhibits no edema. Neurological: She is alert and oriented to person, place, and time. Skin: Skin is warm and dry. She is not diaphoretic. Psychiatric: She has a normal mood and affect. Her behavior is normal. Nursing note and vitals reviewed. ED Course: - Patient was evaluated and discussed with Dr. Amaro - Medications, allergies and past medical history reviewed Labs reviewed Recent Results (from the past 24 hour(s)) Basic Metabolic Panel (non-fasting) Result Value Ref Range Glucose Lvl 59 (L) 65 - 199 mg/dL BUN 16 8 - 18 mg/dL Creatinine 0.88 0.70 - 1.20 mg/dL Sodium 140 135 - 145 mmol/L Potassium 4.0 3.5 - 5.0 mmol/L Chloride 100 98 - 107 mmol/L CO2 29 22 - 31 mmol/L Anion Gap 11 5 - 15 mmol/L Calcium 9.4 8.5 - 10.5 mg/dL Estimated GFR >60 >=60 Hepatic Function Panel Result Value Ref Range Total Protein 7.7 6.1 - 8.0 gm/dL Albumin 4.5 3.2 - 5.2 gm/dL AST 37 (H) 0 - 30 unit/L ALT 62 (H) 0 - 30 unit/L Alk Phos 58 40 - 104 unit/L Total Bilirubin 0.5 0.2 - 1.3 mg/dL Bili, Direct 0.1 0.0 - 0.3 mg/dL Hemogram Result Value Ref Range WBC 8.4 4.0 - 9.5 x10(3)/mcL RBC 4.42 4.00 - 5.21 x10(6)/mcL Hemoglobin 13.6 11.7 - 15.5 gm/dL Hematocrit 39.5 35.7 - 45.8 % MCV 89.4 82.6 - 94.4 fL MCH 30.8 27.1 - 32.0 pg MCHC 34.4 31.7 - 35.0 gm/dL Platelets 278 145 - 357 x10(3)/mcL RDWSD 39.6 37.0 - 46.0 fL RDWCV 12.1 11.5 - 14.1 % MPV 9.3 7.6 - 12.9 fL nRBC % Auto 0.0 % nRBC Abs Auto 0.000 0.000 - 0.000 x10(3)/mcL Differential, Automated Result Value Ref Range Neutrophils % 47.7 % Neutr Abs (ANC) 4.02 1.70 - 6.10 x10(3)/mcL Lymphocytes % 30.6 % Lymphocytes Abs 2.6 0.9 - 3.2 x10(3)/mcL Monocytes % 12.5 % Monocyte Abs 1.0 (H) 0.3 - 0.9 x10(3)/mcL Eosinophils % 7.5 % Eosinophils Abs 0.6 (H) 0.0 - 0.4 x10(3)/mcL Basophils % 1.5 % Basophils Abs 0.1 0.0 - 0.1 x10(3)/mcL Immature Gran % 0.20 % Stephanie Gran Abs 0.02 0.00 - 0.04 x10(3)/mcL Gold Tube HOLD Result Value Ref Range Gold Hold Sample in lab. Urinalysis with reflex Culture Result Value Ref Range Glucose UA Negative Negative mg/dL Protein UA Negative Negative mg/dL Bilirubin UA Negative Negative mg/dL Urobilinogen UA Normal Normal mg/dL pH UA 7.0 5.0 - 8.0 Blood UA Small (A) Negative mg/dL Ketones UA Negative Negative mg/dL Nitrite UA Negative Negative Leukocytes UA Negative Negative mcL Appearance UA Hazy (A) Clear Spec [place] UA 1.026 1.002 - 1.030 Color UA Yellow Yellow Culture Reflexed No Urinalysis Microscopic Exam Result Value Ref Range RBC UA 59 (H) 0 - 4 /HPF WBC UA 4 0 - 5 /HPF Bacteria UA Rare (A) None /HPF Squam Epith UA 6 (H) <=4 /HPF Amorph Josie UA Rare (A) None /HPF POCT Glucose Result Value Ref Range POC Glucose 83 65 - 199 mg/dL POCT urine Result Value Ref Range POC Urine HCG Negative Negative - Negative POC Control Internal Controls Acceptable Bedside Ultrasound During ED Visit: Point of care emergency department limited renal ultrasound: Indication: Right flank pain Procedure in detail: Using the Transducers: Curvilinear transducer the right kidney was first evaluated in both the long and short axes demonstrating none hydronephrosis. Subsequently the left kidney was evaluated in both the long and short axes using the same transducer and demonstrated none hydronephrosis. Other findings or limitations: None Impression: Point of care limited renal ultrasound without hydronephrosis. This study was performed by an ultrasound credentialed emergency physician. These images were archived digitally and I independently interpreted the images at the bedside and agree with the documented results. Given 12.5 mg phenergan, 4 mg zofran, 15 mg toradol, 1 mg dilaudid, 1L NS Assessment and Plan: Assessment: 27 y.o. female with recent history of multiple hospitalizations at [facility] first for pyelonephritis then for question of infected kidney stone and then for right flank pain without clear etiology. She now presented to the emergency department for the same right flank pain . The patient underwent 2 CT scans, ultrasound, and ureteroscopy at the OSH which was notable for a small calcification in the upper pole of the right kidney but no other acute findings. There was no evidence of obstruction. There were no other intra-abdominal sources of her pain. Her abdominal labs were unremarkable. Herurine had cleared. The patient had been taking 4 mg oral Dilaudid every 4 hours for pain and Phenergan for nausea. She was also on ciprofloxacin. He stated that these were not nearly enough. Here at [facility], her blood work was unremarkable as was her urine. The patient was nontoxic-appearing on presentation with stable vital signs. She had tenderness in the right flank and complained of 8/10 pain but looked comfortable during my examination. The outside hospital images were pushed into our system and the urology fellow on-call reviewed them. She did not believe that the calcification seen would be the source of the patient's pain and had no further recommendations. She stated they were happy to follow up with the patient in clinic as an outpatient next week. I discussed with the patient that there was no clear source for her discomfort that required intervention. She had undergone significant workup which was all unremarkable at this time. She was tolerating oral intake. I discussed with her that there was no indication for admission. At this time, the patient became extremely angry with me and repeatedly yelled at me and swore at me. She then requested that I take out her IV so that she could leave. The patient was given return precautions and instructions to continue with Tylenol and ibuprofen as well as her prescribed medications. She was also instructed to try other interventions suchas warm compresses and ice packs. A referral was placed to urology for reevaluation. Return precautions were verbally discussed with the patient and written in discharge instructions, including fevers, worsening abdominal pain, nausea/vomiting, inability to urinate, hematuria, bloody stools, or other concerns. Plan: - Discharge - Referral placed to Urology - Tylenol/Ibuprofen with previously prescribed dilaudid for pain - Phenergan for nausea - Warm/Cold compresses - Return precautions discussed Rodrigo Parker MD Resident 10/19/17 0115 Associated attestation - Bernardo Amaro MD - 10/21/2017 6:46 AM EDT ED ATTENDING ATTESTATION The patient was seen in conjunction with the resident physician. I have independently performed the parra portions of the history and physical exam. I have personally reviewed nursing notes, vital signs,and diagnostic studies including labs, imaging studies and EKGs. I have discussed the details of the case with the resident and agree with the assessment and plan as described in the resident's note, unless stated otherwise in my separate note. documented in this encounter Miscellaneous Notes ED Triage - Lin Verdzuco RN - 10/18/2017 5:10 PM EDT Pt. Presents with uncontrolled R flank pain with 5 admissions to [facility] in the last 3 weeks with infected kidney stone, urology there has consylted and referred pt. Here to see urology. Pt. Arrives AAO x3, skin sl. Pale warm dry. documented in this encounter Plan of Treatment Scheduled Referrals Name Type Priority Associated Diagnoses Order S chedule Referral to Outpatient Referral Routine Ordered: Urology 10/18/2017 documented as of this encounter Procedures Procedure Name Priority Date/Time Associated Comments Diagnosis POCT URINE STAT 10/18/2017 8:29 PM R esults for this EDT procedure are i n the results section. POCT GLUCOSE Routine 10/18/2017 8:15 PM Results f or this EDT procedure are i n the results section. URINALYSIS STAT 10/18/2017 8:11 PM Results f or this MICROSCOPIC EXAM EDT procedure a re in the results section. URINALYSIS WITH STAT 10/18/2017 8:11 PM Result s for this REFLEX CULTURE EDT procedure are in the results section. HEMOGRAM STAT 10/18/2017 6:33 PM Results f or this EDT procedure are i n the results section. DIFFERENTIAL, STAT 10/18/2017 6:33 PM Results for this AUTOMATED EDT procedure are i n the results section. GOLD TUBE HOLD STAT 10/18/2017 6:33 PM Results for this EDT procedure are i n the results section. CBC (WITH DIFF) STAT 10/18/2017 6:33 PM EDT HEPATIC FUNCTION STAT 10/18/2017 6:33 PM Resul ts for this PANEL EDT procedure are i n the results section. BASIC METABOLIC PANEL STAT 10/18/2017 6:33 PM Results for this (NON-FASTING) EDT procedure are in the results section. FILM LIBRARY STORAGE STAT 10/13/2017 12:00 Res ults for this ONLY CT ABDOMEN AND AM EDT procedur e are in PELVIS the results section. FILM LIBRARY STORAGE STAT 10/11/2017 12:00 Res ults for this ONLY ULTRASOUND STUDY AM EST proced ure are in the results section. FILM LIBRARY STORAGE STAT 10/09/2017 12:00 Res ults for this ONLY DX GI STUDY AM EST procedure a re in the results section. FILM LIBRARY STORAGE STAT 09/26/2017 12:00 Res ults for this ONLY ULTRASOUND STUDY AM EST proced ure are in the results section. FILM LIBRARY STORAGE STAT 09/25/2017 12:00 Res ults for this ONLY CT ABDOMEN AND AM EST procedur e are in PELVIS the results section. documented in this encounter Results POCT urine (10/18/2017 8:29 PM EDT) Patholo gist Method Time Signature POC Urine HCG Negative Negative - Negative POC Control Internal Controls Acceptable Specimen (Source) Anatomical Collection Method Collection Time Re ceived Time Location / / Volume Laterality 10/18/2017 8:29 PM EDT Bernardo Amaro MD POINT OF CARE TEST ORDERABLE S POCT Glucose (10/18/2017 8:15 PM EDT) P athologist Signature POC Glucose 83 65 - 199 [facility] mg/dL [facility] Comment: Supplemental ranges: <140 mg/dL before meals <180 mg/dL all other times of the day Specimen Anatomical Collection Method Collection Time Receive d Time (Source) Location / / Volume Laterality Blood specimen 10/18/2017 8:15 PM 018 8:15 (specimen) EDT PM EDT Bernardo Amaro MD POINT OF CARE TEST ORDERABLE S Performing Organization Address City/State/ZIP [place] [address] (ABNORMAL) Urinalysis Microscopic Exam (10/18/2017 8:11 PM EDT) Analysis Performed At Patho logist Time Signature RBC UA 59 (H) 0 - 4 /HPF [facility] WBC UA 4 0 - 5 /HPF [facility] Bacteria UA Rare (A) None /HPF [facility] Squam Epith UA 6 (H) <=4 /HPF [facility] Amorph Josie UA Rare (A) None /HPF [facility] Specimen (Source) Anatomical Collection Method Collection Time Re ceived Time Location / / Volume Laterality Urine specimen 10/18/2017 8:11 10/18/2017 8:29 obtained by clean PM EDT PM EDT catch procedure (specimen) Resulting Agency Comment Spec In Lab Rodrigo Parker MD URINE ORDERABLES Performing Organization Address City/State/ZIP [place] [address] (ABNORMAL) Urinalysis with reflex Culture (10/18/2017 8:11 PM EDT) Patholo gist Method Time Signature Glucose UA Negative Negative [facility] Protein UA Negative Negative [facility] mg/dL [facility] Bilirubin UA Negative Negative [facility] mg/dL [facility] Comment: Clinical correlation required for positi ve Urine Bilirubin results as false positive may occur with some drugs and d rug related products. If a false positive is suspected a serum total bili betancur should be considered if clinically indicated. Urobilinogen UA Normal Normal mg/dL [facility] pH UA 7.0 5.0 - 8.0 [facility] Blood UA Small (A) Negative mg/dL [facility] Ketones UA Negative Negative mg/dL [facility] Nitrite UA Negative Negative [facility] Leukocytes UA Negative Negative [facility] Appearance UA Hazy (A) Clear [facility] Spec [place] UA 1.026 1.002 - 1.030 [facility] Color UA Yellow Yellow [facility] Culture Reflexed No [facility] Specimen (Source) Anatomical Collection Method Collection Time Re ceived Time Location / / Volume Laterality Urine specimen 10/18/2017 8:11 10/18/2017 8:29 obtained by clean PM EDT PM EDT catch procedure (specimen) Resulting Agency Comment Spec In Lab Bernardo Amaro MD URINE ORDERABLES Performing Organization Address City/State/ZIP Code Phon e Number [address] Gold Tube HOLD (10/18/2017 6:33 PM EDT) P athologist Signature Gold Hold Sample in [facility] Specimen Anatomical Collection Method Collection Time Receive d Time (Source) Location / / Volume Laterality Blood specimen Venous Draw / 10/18/2017 6:33 PM 2017 6:40 (specimen) Unknown EDT PM EDT Rodrigo Parker MD CHEMISTRY ORDERABLES Performing Organization Address City/[facility]/ZIP Code Phon e Number [address] (ABNORMAL) Differential, Automated (10/18/2017 6:33 PM EDT) Patholo gist Method Time Signature Neutrophils % 47.7 % [facility] Neutr Abs (ANC) 4.02 1.70 - [facility] 6.10 [facility] x10(3)/[facility] LABORATORY Lymphocytes % 30.6 % [facility] Lymphocytes Abs 2.6 0.9 - 3.2 [facility] x10(3)/[facility] LABORATORY Monocytes % 12.5 % [facility] Monocyte Abs 1.0 (H) 0.3 - 0.9 [facility] x10(3)/[facility] LABORATORY Eosinophils % 7.5 % [facility] Eosinophils Abs 0.6 (H) 0.0 - 0.4 [facility] x10(3)/[facility] LABORATORY Basophils % 1.5 % [facility] Basophils Abs 0.1 0.0 - 0.1 [facility] x10(3)/[facility] LABORATORY Immature Gran % 0.20 % [facility] Comment: Immature granulocytes(IG's)percentage an d absolute count will include metamyelocytes, myelocytes, and promyelo cytes. Blood smears from CBCs yielding IG's will be scanned manually for concor dance. If this scan disagrees with the automated IG or if promyelocytes are not ed, a manual differential will be performed. Stephanie Gran Abs 0.02 0.00 - 0.04 x10(3)/[facility]ORY Specimen Anatomical Collection Method Collection Time Receive d Time (Source) Location / / Volume Laterality Blood specimen 10/18/2017 6:33 PM 018 6:40 (specimen) EDT PM EDT Resulting Agency Comment Spec In Lab Rodrigo Parker MD HEMATOLOGY ORDERABLES Performing Organization Address City/State/ZIP Code Phon e Number [address] Hemogram (10/18/2017 6:33 PM EDT) P athologist Signature WBC 8.4 4.0 - 9.5 [facility] x10(3)/[facility] LABORATORY RBC 4.42 4.00 - [facility] 5.21 [facility] x10(6)/[facility] LABORATORY Hemoglobin 13.6 11.7 - [facility] 15.5 gm/dL [facility] Hematocrit 39.5 35.7 - [facility] 45.8 % [facility] MCV 89.4 82.6 - [facility] 94.4 [facility] LABORATORY MCH 30.8 27.1 - [facility] 32.0 pg [facility] MCHC 34.4 31.7 - [facility] 35.0 gm/dL [facility] Platelets 278 145 - 357 [facility] x10(3)/[facility] LABORATORY RDWSD 39.6 37.0 - [facility] 46.0 [facility] LABORATORY RDWCV 12.1 11.5 - [facility] 14.1 % [facility] MPV 9.3 7.6 - 12.9 [facility] nRBC % Auto 0.0 % [facility] nRBC Abs Auto 0.000 0.000 - [facility] 0.000 [facility] x10(3)/[facility] LABORATORY Specimen Anatomical Collection Method Collection Time Receive d Time (Source) Location / / Volume Laterality Blood specimen 10/18/2017 6:33 PM 018 6:40 (specimen) EDT PM EDT Resulting Agency Comment Spec In Lab Rodrigo Parker MD HEMATOLOGY ORDERABLES Performing Organization Address City/State/[place] [address] (ABNORMAL) Hepatic Function Panel (10/18/2017 6:33 PM EDT) P athologist Signature Total Protein 7.7 6.1 - 8.0 [facility] SRINIVAS gm/dL [facility] Albumin 4.5 3.2 - 5.2 [facility] SRINIVAS gm/dL [facility] AST 37 (H) 0 - 30 [facility] SRINIVAS unit/L [facility] ALT 62 (H) 0 - 30 [facility] SRINIV[facility] unit/L [facility] Alk Phos 58 40 - 104 [facility] unit/L [facility] Total 0.5 0.2 - 1.3 [facility] Bilirubin mg/dL [facility] Bili, Direct 0.1 0.0 - 0.3 [facility] Specimen Anatomical Collection Method Collection Time Receive d Time (Source) Location / / Volume Laterality Blood specimen 10/18/2017 6:33 PM 018 6:40 (specimen) EDT PM EDT Resulting Agency Comment Spec In Lab Bernardo Amaro MD CHEMISTRY ORDERABLES Performing Organization Address City/State/[place] [address] (ABNORMAL) Basic Metabolic Panel (non-fasting) (10/18/2017 6:33 PM EDT) P athologist Signature Glucose Lvl 59 (L) 65 - 199 [facility] mg/dL [facility] Comment: Diabetes: >=200 mg/dL plus symp toms BUN 16 8 - 18 mg/dL [facility] Creatinine 0.88 0.70 - 1.20 mg/dL [facility] Sodium 140 135 - 145 mmol/L [facility] Potassium 4.0 3.5 - 5.0 mmol/L [facility] Comment: Please note: ??Patients with WBC >100,00 0 may have falsely elevated Potassium levels. ??For accurate Potassium quantif ication in these patients send serum separator tube (gold top) for subsequent determinations. ??Contact the Clinical Chemistry Laboratory if there are any qu estions. Chloride 100 98 - 107 mmol/L [facility] CO2 29 22 - 31 mmol/L [facility] Anion Gap 11 5 - 15 mmol/L [facility] Calcium 9.4 8.5 - 10.5 mg/dL [facility] Estimated GFR >60 >=60 [facility] Comment: The reported eGFR should be multiplied b y 1.2 for patients. The MDRD is not an appropriate measure o f renal function for patients with body mass extremes or in patients with acute kidney failure. http://[employer]/DHnkdep http://[employer]/DHMCnkf Specimen Anatomical Collection Method Collection Time Receive d Time (Source) Location / / Volume Laterality Blood specimen 10/18/2017 6:33 PM 018 6:40 (specimen) EDT PM EDT Resulting Agency Comment Spec In Lab Bernardo Amaro MD CHEMISTRY ORDERABLES Performing Organization Address [facility] Code Phon e Number [place] [phone] Film Library- Storage Only CT Abdomen & Pelvis (10/13/2017 12:00 AM EDT) Specimen (Source) Anatomical Location Collection Method / Collectio n Time Received Time / Laterality Volume Narrative [facility] - 10/18/2017 10:22 PM EDT This result has an attachment that is no t available. This exam is for storage only and is aut o-finalizing. Bernardo Amaro MD [facility] FILM LIBRARY ORDERABLES Performing Organization Address [facility] Phon e Number [place], [place] Film Library- Storage Only Ultrasound Study (10/11/2017 12:00 AM EST) Specimen (Source) Anatomical Location Collection Method / Collectio n Time Received Time / Laterality Volume Narrative [facility] - 10/18/2017 10:22 PM EDT This result has an attachment that is no t available. This exam is for storage only and is aut o-finalizing. Bernardo Amaro MD [facility] FILM LIBRARY ORDERABLES Performing Organization Address [facility] Code Phon e Number [place], [place] Film Library- Storage Only DX GI Study (10/09/2017 12:00 AM EST) Specimen (Source) Anatomical Location Collection Method / Collectio n Time Received Time / Laterality Volume Narrative [facility] - 10/18/2017 10:21 PM EDT This result has an attachment that is no t available. This exam is for storage only and is aut o-finalizing. Bernardo Amaro MD [facility] FILM LIBRARY ORDERABLES Performing Organization Address [facility]/ZIP [facility] Phon e Number [place], [place] Film Library- Storage Only Ultrasound Study (09/26/2017 12:00 AM EST) Specimen (Source) Anatomical Location Collection Method / Collectio n Time Received Time / Laterality Volume Narrative [facility] - 10/18/2017 10:21 PM EDT This result has an attachment that is no t available. This exam is for storage only and is aut o-finalizing. Bernardo Amaro MD [facility] FILM LIBRARY ORDERABLES Performing Organization Address City/[facility] Phon e Number [place], [place] Film Library- Storage Only CT Abdomen & Pelvis (09/25/2017 12:00 AM EST) Specimen (Source) Anatomical Location Collection Method / Collectio n Time Received Time / Laterality Volume Narrative [facility] - 10/18/2017 10:20 PM EDT This result has an attachment that is no t available. This exam is for storage only and is aut o-finalizing. Bernardo Amaro MD [facility] FILM LIBRARY ORDERABLES Performing Organization Address [facility] Phon e Number [place], [place] documented in this encounter Visit Diagnoses Diagnosis Flank pain Abdominal pain, unspecified site documented in this encounter Administered Medications Inactive Administered Medications - up to 3 most recent administrations Medication Order MAR Action Action Date Dose Rate Site HYDROmorphone (DILAUDID) injection 1 Given 10/18/2017 8:48 PM ED T 1 mg mg 1 mg, Intravenous, ONCE, 1 dose, On 10/18/17 at 2026, STAT ketorolac (TORADOL) injection 15 mg Given 10/18/2017 8:15 PM EDT 15 mg 15 mg, Intravenous, ONCE, 1 dose, On 10/18/17 at 183, Routine ondansetron (ZOFRAN) injection 4 mg Given 10/18/2017 8:15 PM EDT 4 mg 4 mg, Intravenous, ONCE, 1 dose, On 10/18/17 at 183, STAT promethazine (PHENERGAN) injection 12.5 mg Given 10/18/2017 8:49 PM EDT 12.5 mg 12.5 mg, Intravenous, ONCE, 1 dose, On 10/18/17 at 2026, VESICANT - Dilute with a minimum of 10 mL saline. LARGE VEIN only. Inject over 10 minutes into the farthest port of a running IV infusion. Remain with the patient and STOP infusion immediately if patient reports burning. Avoid extravasation., STAT sodium chloride 0.9% 1,000 mL IV bolus New Bag 10/18/2017 6:35 PM EDT 2000 mL/hr at 2,000 mL/hr, Intravenous, ONCE, 1 dose, On 10/18/17 at 183 documented in this encounter Active and Recently Administered Medications Times are shown in EDT. Scheduled Medication Order 10/16/2017 10/17/2017 10/18/2017 HYDROmorphone (DILAUDID) injection 1 mg (COMPLETED) 2047 (Given - Provider: Margareth Hernandez, RN) 1 mg, Intravenous, ONCE, 1 dose, 10/18/17 at 2026, STAT ketorolac (TORADOL) injection 15 mg (COMPLETED) 2014 (Given - Provider: Margareth Hernandez, ZARA) 15 mg, Intravenous, ONCE, 1 dose, 10/18/17 at 183, Routine ondansetron (ZOFRAN) injection 4 mg (COMPLETED) 2014 (Given - Provider: Margareth Hernandez, ZARA) 4 mg, Intravenous, ONCE, 1 dose, 10/18/17 at 183, STAT promethazine (PHENERGAN) injection 12.5 mg (COMPLETED) 2048 (Given - Provider: Margareth Hernandez, ZARA) 12.5 mg, Intravenous, ONCE, 1 dose, 10/18/17 at 2026, VESICANT - Dilute with a minimum of 10 mL saline. LARGE VEIN only. Inject over 10 minutes into the farthest port of a running IV infusion. Remain with the patient and STOP infusion imme diately if patient reports burning. Avoid extravasation., STAT sodium chloride 0.9% 1,000 mL IV bolus (COMPLETED) 1834 (New Bag - Provider: Edwige Angelo RN)2040 (Stopped - Provider: Margareth Hernandez, ZARA) at 2,000 mL/hr, Intravenous, ONCE, 1 dose, 10/18/17 at 1835 documented in this encounter Care Teams Chef Kitchen Manager Relationship Specialty Start Date End Date Elsi Castro APRN PCP - General Family Medicine 08/04/17 08/02/[address] [place] [address] documented as of this encounter
--- OUTSIDE RECORDS SUMMARY | 2022-02-18 02:11 | XMS_ITS | Encounter Summary ---
:1990 Author Organization [facility] Address [address] [place] [address] Care Team Providers Name Role Phone Elsi Castro RICKY Primary Care Provider Encounter Details Date Type Department Care Team Description 10/09/2017 Hospital [facility] [place] [address] Social History Tobacco Use Types Packs/Day Years Used Date Never Smoker Smokeless Tobacco: Never Used Alcohol Use Standard Drinks/Week Comments Yes 0 (1 standard drink = 0.6 oz pure alcoho l) Maybe one mixed drink a month Sex Assigned at Date Recorded Not on file documented as of this encounter Medications at Time of Discharge Medication Sig Dispensed Refills Start Date End Date acetaminophen (Tylenol) 325 Take 325-650 mg by 0 03/01/2009 mg Tablet mouth Every 4 hours as needed. documented as of this encounter Plan of Treatment Not on filedocumented as of this encounter Procedures Procedure Name Priority Date/Time Associated Diagnosis [facility] FILM LIBRARY STAT 10/09/2017 12:00 AM Results for this STORAGE ONLY DX GI EST procedure are in STUDY the results section. documented in this encounter Results Film Library- Storage Only DX GI Study (10/09/2017 12:00 AM EST) Specimen (Source) Anatomical Location Collection Method / Collectio n Time Received Time / Laterality Volume Narrative [facility] - 10/18/2017 10:21 PM EDT This result has an attachment that is no t available. This exam is for storage only and is aut o-finalizing. Bernardo Amaro MD [facility] FILM LIBRARY ORDERABLES Performing Organization Address City/State/ZIP Code Phon e Number [place], [place] documented in this encounter Visit Diagnoses Not on filedocumented in this encounter Care Teams Tax Economist Relationship Specialty Start Date End Date Elsi Castro APRN PCP - General Family Medicine 08/04/17 08/02/[address] [place] [id number] documented as of this encounter
--- OUTSIDE RECORDS SUMMARY | 2022-02-18 02:11 | XMS_ITS | Encounter Summary ---
:1990 Author Organization [facility] [place] [address] Care Team Providers Name Role Phone Elsi Castro RICKY Primary Care Provider Reason for Referral Consultation (Routine) - Closed Specialty Diagnoses / Procedures Referred By Contact Refer red To Contact Pain Management Diagnoses Chronic abdominal pain Gatito Elizabeth MD [facility] [address] [place] [address] [facility] [place] [address] [place] [address] Fax: Referral ID Status Reason Start Date Expiration Date Visits V isits Requested Authorized [id number] Closed Specialty 10/19/2017 10/19/2018 1 1 Service Requested Encounter Details Date Type Department Care Team Description 10/19/2017 Telephone Urology Gatito Elizabeth MD [facility] [place] [address] UROLOGY DEPT [phone] [place] [id number] (Wo rk) Social History Tobacco Use Types Packs/Day Years Used Date Never Smoker Smokeless Tobacco: Never Used Alcohol Use Standard Drinks/Week Comments Yes 0 (1 standard drink = 0.6 oz pure alcoho l) Maybe one mixed drink a month Sex Assigned at Date Recorded Not on file documented as of this encounter Miscellaneous Notes Telephone Encounter - Gatito Villeda MD - 10/19/2017 11:29 AM EDT Lulú Oneil presented to the ED last night requesting Urologic evaluation. I reviewed her labs, vitals, and imaging and discussed her presentation with the ED staff. She has follow-up planned with Dr. Watson and there were no acute needs last night. She will continue with the outpatient plan. I called her today to review this and to also offer her a referral to pain management. I am not convinced that her pain is related to her parenchymal calcification and I believe she will benefit from an evaluation by the pain clinic. I placed the referral for her. documented in this encounter Plan of Treatment Scheduled Referrals Name Type Priority Associated Diagnoses Order S chedule Referral to Pain Outpatient Referral Routine Chronic abdominal Ordered: Clinic pain 10/19/2017 documented as of this encounter Visit Diagnoses Diagnosis Chronic abdominal pain Abdominal pain, unspecified site documented in this encounter Care Teams Liquefaction Supervisor Relationship Specialty Start Date End Date Elsi Castro, RICKY PCP - General Family Medicine 08/04/17 08/02/[address] [place] [phone] documented as of this encounter
--- OUTSIDE RECORDS SUMMARY | 2022-02-18 02:11 | XMS_ITS | Encounter Summary ---
:1990 Author Organization [facility] Address [address] [place] [address] Care Team Providers Name Role Phone Ana Hendrix APRN Primary Care Provider Encounter Details Date Type Department Care Team Description 03/14/2020 Office Visit Occupational Therapy Juvenal Barker cussion without at [facility], OT loss of [facility] [place] [phone] PHYSICAL MEDICINE [phone] & [place] [address] Social History Tobacco Use Types Packs/Day Years Used Date Never Smoker Smokeless Tobacco: Never Used Alcohol Use Standard Drinks/Week Comments Yes 0 (1 standard drink = 0.6 oz pure alcoho l) Maybe one mixed drink a month Sex Assigned at Date Recorded Not on file documented as of this encounter Miscellaneous Notes Treatment - Therapy - Juvenal Barker, OT - 03/14/2020 9:00 AM EDT OCCUPATIONAL THERAPY TREATMENT NOTE REFERRAL SOURCE: Ana DONALD MD FOLLOW-UP: PRN TOTAL TREATMENT TIME: 58 Minutes TIMED CODE TREATMENT TIME: 58 minutes; Therex: Neuromuscular Re-Ed (16125) 28 min Cognitive Skills (27987) 30 min OCCUPATIONAL PROFILE: PAST MEDICAL HISTORY: Lulú Oneil [...] With Activity: 02/10 Location: headache frontal area. TREATMENT TODAY: Completed visual warmup first Peripheral Vision Awareness: Your eyes need to know where they are in space to focus and see clearly. If this does not happen-print can blur or images can double (this can occur close up, as in reading, OR far away, such as driving, OR both). Often at night such as night driving-without peripheral awareness doubling with worsen. To improve this important visual skill try the below exercise. ??? Take 5 sticky notes- put an X in the middle of each ??? Place in the shape of an X at eye level ??? Cover one eye and look at the central sticky note o Take a dowel and stand 3 feet away o WHILE looking at the central sticky note- take the dowel and try to touch one of the outer stickies o IMPORTANT: stop and look to see how far off the dowel is from the X on the sticky note o Due for about 2-3 mins ??? As it gets easier-go faster and move the stickies further apart Following practice we completed saccades which were much faster and coordination. She completed reading 5x5 blocks of text on the wall shifting her vision between 4 of these to read top row in 16 seconds and then we did the bottom row in 16 seconds. This was with no increase in symptoms. Columns and then diagonal was also completed in the same amount of time with functional performance. GPDR was then challenged for planning her problem solving. She completed a goal of devising a system and placement for her strawberries so that she would have enough for her family to eat and freeze some. She required minimal cueing to stick with creating her plan or organizing how to thing through the task without starting to think through the steps at the same time. She was able to initially lay out her flow of thinking writing it herself on a paper with minimal cueing She then followed her steps of thinking to think through the task with minimal cueing to stay to task. CLINICAL DECISION MAKING: Lulú Oneil presents with activity limitations and/or participation restrictions due to performance deficits in working memory, planning, organization, behavioral self regulation, shifting ability, cognitive endurance, light sensitivity, and headache. She presented with improved performance for visual exercises today with better peripheral awareness and increased speed andaccuracy of saccades. She has been making nice gains in use of goal plan do review and was able to use it with a little bit of training today to apply to a problem solving task. Her endurance continuesto be limited considering after back to back OT PT last week she arrived back at home and vomited. This will be dicussed with PT. Patient will benefit from outpatient OT services using both rehabilitative and compensatory approaches. She has good rehabilitation potential. Plan for next visit: Visual exercises as warm up Work on goal plan do review applying this to problem solving tasks. Energy conservation. Treatment Plan: The patient is to be seen 1 time(s) per week, for 12 week(s) with a mix of in clinicand telemedicine visits to progress toward short and snf goals for Cognitive retraining compensatory strategies Treatment to include use of: Therapeutic Exercise, Therapeutic Activities, Neuromuscular Re-education, Patient/Caregiver education with a compensatory and rehabilitative approach Loan Interviewer Goals (to be met by discharge): Date [...] treatment goals, and agrees to thetreatment plan. Past testing PERFORMANCE DEFICITS: Lulú Oneil identifies difficulty with [...] Temperament and personality: Appropriate. Specific mental functions [place] Cognitive Assessment (MoCA) Results: Comments Visuospatial/Exec 1/ Trails Test 0/1 Cube Copy / Clock: Contour 08/04 Clock: Numbers / Clock: Hands Naming 3/3 (of 3) Attention 1/ Repeat forward 0/1 Repeat backwards / Tapping for letter A 2/3 Serial 7 Subtraction (3pts=4+; 2pts=2+; 1pt=1) Language 1/2 Repeating Sentences Fluency 0/1 Word Naming (1pt=11+ words) Abstraction 2/2 Similarities (Associations) Delayed Recall 5/5 (uncued) Orientation 08/04 Month Date 08/04 Year 08/04 Day of the week 08/04 Location 08/04 [facility] Add 1 point if 12 years of education or less TOTAL 24/30 Score of 26 or greater considered normal VISION FUNCTIONS: Vision Assessment Basic Visual Function: Pupulary reflex: APPEARANCE (observe pupil size and symmetry as client fixates distant target) Right eye Left eye Responsiveness to light stimulation:(Shine penlight into eye for 2 seconds as client fixates distanttarget; observe response of both pupils) Light stimulation to right eye Right eye Left eye Constricts quickly x Constricts quickly x remains constricted remains constricted Constricts slugishly Constricts slugishly Begins to dialate Begins to dialate Does not constrict Does not constrict Light stimulation to left eye Right eye Left eye Constricts quickly x Constricts quickly x remains constricted remains constricted Constricts slugishly Constricts slugishly Begins to dialate Begins to dialate Does not constrict Does not constrict ACUITY INTERMEDIATE DISTANCE Instruct the client to identify numbers on the Intermediate Distance Chart at a distance of 1 meter. Right eye niesha 20/32 metric 1/ Left eye niesha 20/25 metric 1/ Eyes together niesha 20/20 metric 1/ READING ACUITY Instruct the client to read the sentences on the Phobious text card at a distance of 40cm/16 inches niesha 20/32 Observations: Clinton Two Person Confrontation Test Horrizontal and Vertical Rosenthal: WFL Occular Motor Function Assessment Corneal Reflection Instruct the client to focus on a distant target, hold penlight centered in front of the client???s face; observe the corneal reflection in each eye and record the position of the reflection symetric Eye Movement SMOOTH PURSUIT Instruct the client to focus on the penlight; move the penlight slowly in an arc 20 inches from the face through the 9 cardinal directions of gaze. Record deficiencies/deviations in eye movement with: Bilateral vision: smooth with full cardinal gazes Right eye only: initial shaky but with a short rest break was smooth with full cardinal gazes Left eye only:. Despite rest break continued to be shaky through all cardinal gazes Saccades: Instruct the client to move their eyes between two targets such as your thumbs positioned 2 feet apart 6 feet from their face. Document deficiencies in accuracy, speed, and control Very slow with inaccurate movements. Needed to stop due to nausea. Peripheral vision awareness: Instruct the client to stand 3-4 feet in front of a series of 5 targetson the wall. 4 targets will be positioned in corners of a 2 foot wide square with the 5th target in the center. The client is to maintain focus on the central target while using a short dowel to attempt to hit the peripheral targets bringing the dowel down to the floor after each attempt. Document accuracy with Right eye only: slight inaccuracy in all quadrants Left eye only: inaccurate in all quadrants Both eyes open: accurate in all quadrants. Convergence Instruct the client to focus on the penlight (held vertically). Beginning at 20 inches, slowly move the penlight towards the bridge of the client???s nose. Observe convergent eye movements. Record the distance from the nose at which the client breaks fixation in 1 or both eyes. Record deficiencies/deviations in eye movement on the eye diagram. Also note pupillary response, effort, and ability to sustain convergence Near point of convergence in inches 14 inches We practiced accomodation using heart chart held at 24 inches for which she required increased time to attain clear image at the 24 inch distance as she shifted from far to near. Diplopia Testing Cover Uncover test: Instruct the client to focus on a distant target held at eye level behind the examiner. Quickly cover the eye which appears to have intact oculomotor function with the occluder. Observe the uncovered eye to see if it moves to take up fixation on the target. If eye movement occurs, record the direction of the eye movement on the eye diagram. No movement Alternating Cover Test: Instruct the client to focus on a distant target held at eye level behind the examiner. Quickly switch the occluder back and forth between the eyes leaving the occluder over the eye for 2 seconds before switching. Observe whether the eye under cover moves to take up fixation once the cover has been removed. If eye movement occurs, record the direction of the eye movement. No movement The Doll Chair Assembly Task (DCAT) Test by [employer]ia: Progressive Occupational Demand Suite Produced by [employer] The DACT is a standardized and situational assessment of work simulation which requires a client to complete various tasks: A) Placement Testt: Requires the client to place/match parts onto a mat which is a timed test against normative data B) Assembly Test: After the Placement Test, the client puts together the doll chair by either using the model chair or the manual. This test is also timed with normative data. Chair used: baby bear Placement Test Time: 48 sec Percentile Rank: 50th Assembly Test Time: 270 Percentile Rank: 25th Observations: she was initially disorganized in her assembly process such that she produced multipleerrors. She identified there was an issue and took it apart organizing her parts again and preceded to build in an organized fashion. We considered how she initially did not apply the concepts of Goal Plan Do Review. documented in this encounter Plan of Treatment Not on filedocumented as of this encounter Visit Diagnoses Diagnosis Concussion without loss of consciousness , initial encounter documented in this encounter Care Teams Literacy Teacher Relationship Specialty Start Date End Date Ana Hendrix APRN PCP - General Geriatric Medicine 10/21/[address] [place] [address] documented as of this encounter
--- OUTSIDE RECORDS SUMMARY | 2022-02-18 02:11 | XMS_ITS | Encounter Summary ---
:1990 Author Organization [facility] Address [facility] [place] [address] Care Team Providers Name Role Phone Ana Hendrix APRN Primary Care Provider Encounter Details Date Type Department Care Team Description 12/07/2019 TH Visit Physical Therapy at M[facility]ya Bass Post concussional syndrome; (TeleHealth) [facility], PT Nausea; [facility] Dizziness and giddiness; Drive Visual discomfort, unspecifi ed laterality; [place], [place] Headache, [place] [id number] Social History Tobacco Use Types Packs/Day Years Used Date Never Smoker Smokeless Tobacco: Never Used Alcohol Use Standard Drinks/Week Comments Yes 0 (1 standard drink = 0.6 oz pure alcoho l) Maybe one mixed drink a month Sex Assigned at Date Recorded Not on file documented as of this encounter Miscellaneous Notes Treatment - Therapy - Mireya Bass, PT - 12/07/2019 2:00 PM EDT Rehabilitation Medicine - Telemedicine Encounter Patient: Lulú Oneil MR Number: [id number] Date of : 1990 Home Address: [address] [place] [id number] Phone Number (Home, Mobile): Date of Visit: 12/07/2019 Patient Location at time of visit: bedroom at home; Lulú Oneil is aware that I will need to confirm this location each time we meet. Others in the same physical location as the patient: entire family This therapist is legally able to treat the patient in [place] and [place] via Telehealth due to license waiver agreement during Covid 19 crisis. NOTE: Lulú Oneil has verbally consented to participate in a Telemedicine visit with Mireya Bass PT as her Rehabilitation Medicine provider while the [facility] Covid 19 crisis is taking place. This Telemedicine visit was comprised of both Audio and Visual through a secure connection throughout the duration of this visit. Patient understands this is a therapy service and will be billed to her insurance. Patient consents that therapy or educational materials could be sent through [facility] or e-mail address at: [email or web address]. Lulú Oneil did not have any questions for me at this time and was informed the best way to reach me is through [facility]. Physical Therapy Daily Note Total treatment time: 40 minutes Total timed code treatment: 40 minutes Current Medicare Cert Period 11/29/2019 - 02/26/2020 Follow up visit for patient with ICD-10-CM 1. Postconcussional syndrome F07.81 2. Nausea R11.0 3. Dizziness and giddiness R42 4. Visual discomfort, unspecified laterality H53.149 5. Headache, chronic daily R51 S: Patient reports that headaches returned yesterday. Patient has another injection scheduled for later this week. O: Therex: Neuromuscular Re-Ed (48264) 25 min Self Care/Home Management (66930) 15 min Baseline: Headache 6/10, Dizziness 0/10, Nausea 4/10, Fogginess 6/10 Self-care / home management ?? B UT stretch 2x30s ?? B LS stretch 2x30s ?? Diaphragmatic breathing x5 ?? Skilled discussion for role of anxiety in prolonging recovery Neuromuscular Re-ed ?? Gaze stabilization, seated supported, comfortable speed, time to tolerance ?? Week 2 head movement ex 1: target on wall 6-10 feet, horiz gaze stability x23s, vert gaze stability x17s ?? Week 2 head movement ex 2: target stick at arm length, horiz gaze stability x23s, vert gaze stability x17s ?? *Week 2 head movement ex 3: head/eye coordination - look at target, face target, alternate. [id number], vert x14s Peripheral visual mckeon Draw an X on [...] able to teach back technique ?? Reinforce using VOMS rule of 2s to grade exposure when possible A: Patient reports adhering to HEP as tolerated. Patient reports that she typically becomes symptomatic within 30 seconds of gaze stabilization. Patient is not able to use VOMS rule of 2s consistently due to demands of being a parent, discussed using when possible. Progressed exercises for neck pain, s tress management, gaze stabilization. Patient is able to demonstrate all elements with good technique with exception of peripheral awareness due to lacking materials. Patient is able to teach back the exercise. P: Progress gaze stabilization. Long chart. Reinforce symptom management Treatment may include: Manual Techniques, Soft Tissue [...] in visual field. beyond hand length ? alf goals By 01/10/2020 ? 11/29/2019 ? Patient [...] ? Mireya Bass, PT, PT, ITPT, DPT [facility] Out[facility] Rehabilitation documented in this encounter Plan of Treatment Not on filedocumented as of this encounter Visit Diagnoses Diagnosis Postconcussional syndrome Postconcussion syndrome Nausea Nausea alone Dizziness and giddiness Visual discomfort, unspecified lateralit y Headache, chronic daily Headache documented in this encounter Care Teams Nephrology Nurse Relationship Specialty Start Date End Date Ana Hendrix APRN PCP - General Geriatric Medicine 10/21/[address] [place] [address] documented as of this encounter
--- OUTSIDE RECORDS SUMMARY | 2022-02-18 02:11 | XMS_ITS | Clinical Summary ---
:1990 Author Organization [facility] [place] [address] Care Team Providers Name Role Phone Ruma Ana RICKY Primary Care Provider Allergies Active Allergy Reactions Severity Noted Date Comments Bee Venom Protein (Honey Bee) High 08/29/2020 Medications Medication Sig Dispensed Refills Start Date End Date Status topiramate (Topamax) 25 0 10/11/2019 Active mg Tablet sertraline (ZOLOFT) 100 TK 1 T PO HS 0 07/19/2019 Active mg Tablet prochlorperazine TAKE 1 TO 2 0 10/06/2019 Active (Compazine) 5 mg Tablet TABLETS BY MOUTH EVERY 8 HOURS NEEDED FOR HEADACHE rizatriptan (MAXALT) 5 TAKE 1 TABLET BY 0 02/06/2021 Active mg Tablet MOUTH 1 TIME NEEDED FOR MIGRAINE HEADACHE. MAY REPEAT DOSE FOR 1 AFTER 2 HOURS IF FOR 1 DOSE INEFFECTIVE memantine (Namenda) 5 0 03/31/2021 Active mg Tablet hydrOXYzine (Atarax) 10 TAKE 1 TABLET BY 0 1 Active mg Tablet MOUTH AT BEDTIME EPINEPHrine 0.3 mg/0.3 0 02/27/2021 Active mL Auto-Injector acetaminophen (Tylenol) Take 325-650 mg 0 03/01/2009 Active 325 mg Tablet by mouth Every 4 hours as needed. Active Problems Problem Noted Date Breast ptosis 09/05/2014 Social History Tobacco Use Types Packs/Day Years Used Date Never Smoker Smokeless Tobacco: Never Used Alcohol Use Standard Drinks/Week Comments Yes 0 (1 standard drink = 0.6 oz pure alcoho l) Maybe one mixed drink a month Sex Assigned at Date Recorded Not on file Last Filed Vital Signs Vital Sign Reading Time Taken Comments Blood Pressure 114/68 04/13/2021 9:02 AM EDT Pulse 66 04/13/2021 9:02 AM EDT Temperature 36.8 ??C (98.2 ??F) 10/18/2017 5:05 PM EDT Respiratory Rate 15 10/18/2017 5:05 PM EDT Oxygen Saturation 100% 10/18/2017 5:05 PM EDT Inhaled Oxygen Concentration - - Weight 64.9 kg (143 lb) 04/13/2021 9:02 AM EDT reported Height 157.5 cm (5' 2) 10/22/2019 9:39 AM EDT measured Body Mass Index 26.16 10/22/2019 9:39 AM EDT Plan of Treatment Health Maintenance Due Date Last Done Comments Covid-19 Vaccine (#1) 1994 HIV screen 2007 Hepatitis C Screening 2007 Tdap adult 2008 Tetanus vaccine 2008 HPV test 2019 PAP Smear 2019 Influenza (Flu) vaccine (1 of 1 - Influenza standard 04/04/2022 series) Insurance Payer Benefit Plan / Subscriber ID Effective Dates Phone Addre ss Type Group [place]ICAID [place] [id number] 2017-Prese [phone] [address] [address] [place], [place] [id number] Care Teams Child Nurse Relationship Specialty Start Date End Date Ana Hendrix APRN PCP - General Geriatric Medicine 10/21/[address] [place], [place] [id number]
--- OUTSIDE RECORDS SUMMARY | 2022-02-18 02:11 | XMS_ITS | Encounter Summary ---
:1990 Author Organization [facility] Address [address] [place] [address] Care Team Providers Name Role Phone Ana Hendrix APRN Primary Care Provider Encounter Details Date Type Department Care Team Description 02/09/2020 Office Visit Occupational Therapy Juvenal Barker cussion without at [facility] G, OT loss of [facility] [place] [address] PHYSICAL MEDICINE [phone] & [place] [address] Social History Tobacco Use Types Packs/Day Years Used Date Never Smoker Smokeless Tobacco: Never Used Alcohol Use Standard Drinks/Week Comments Yes 0 (1 standard drink = 0.6 oz pure alcoho l) Maybe one mixed drink a month Sex Assigned at Date Recorded Not on file documented as of this encounter Miscellaneous Notes Treatment - Therapy - Juvenal Barker, OT - 02/09/2020 8:30 AM EDT OCCUPATIONAL THERAPY TREATMENT NOTE REFERRAL SOURCE: Ana DONALD MD FOLLOW-UP: PRN TOTAL TREATMENT TIME: 58 Minutes TIMED CODE TREATMENT TIME: 58 minutes; Therex: Neuromuscular Re-Ed (13422) 58 min OCCUPATIONAL PROFILE: PAST MEDICAL HISTORY: Lulú [...] With Activity: 02/10 Location: headache frontal area. VISION FUNCTIONS: Vision Assessment Basic Visual Function: [...] client to read the sentences on the [employer] text card at a distance of 40cm/16 inches niesha 20/32 Observations: Seanetic Two Person Confrontation Test Horrizontal and Vertical [...] direction of the eye movement. No movement TREATMENT TODAY: Reviewed use of GPDR for which she has been using for complex cooking tasks and other challenging tasks around her home with some success. Education on energy conservation was provided where we considered a balance from day to day of activity trying to avoid cognitively exerting to the point where she shuts down She considered writing alist of planned activities for each day of the week in an attempt to try to balance. Evaluation vision. Started her with the following homework Peripheral Vision Awareness: Your eyes need to [...] faster and move the stickies further apart She was encouraged to work with primarily her right eye in isolation for this task. Following practice we completed saccades which were much faster and coordination. She completed reading 5x5 blocks of text on the wall shifting her vision between 4 of these to read top row in 18 seconds and then we did the bottom row in 17 seconds. This was with no increase in symptoms. CLINICAL DECISION MAKING: Lulú Oneil presents with activity limitations and/or participation restrictions due to performance deficits in working memory, planning, organization, behavioral self regulation, shifting ability, cognitive endurance, light sensitivity, and headache. With visual assessmenttoday she presents with limited convergence ability and accomodation, difficulty with coordination and tolerance to saccades, and limited peripheral awareness in her right eye. She was able to develop increased accuracy with her right eye with practice today which in turn resulted in improved saccades. She is motivated to continue working with this for her home exercises. She has been using GPDR with some success which will be challenged in future visits. Energy conservation has been a challenge forher with multiple days per week of overdoing. She understands the concepts but will need further assistance with this. Patient will benefit from outpatient OT services using both rehabilitative and comp ensatory approaches. She has good rehabilitation potential. Plan for next visit: Doll chair situational assessment. ? If there is need for a work sample first. Work on goal plan do review. Energy conservation. Treatment Plan: The patient is to be seen 1 time(s) per week, for 12 week(s) with a mix of in clinicand telemedicine visits to progress toward short and mcfp goals for Cognitive retraining compensatory strategies Treatment to include use of: Therapeutic Exercise, Therapeutic Activities, Neuromuscular Re-education, Patient/Caregiver education with a compensatory and rehabilitative approach Coater Associate Goals (to be met by discharge): Date [...] Temperament and personality: Appropriate. Specific mental functions [place] Cognitive Assessment (MoCA) Results: Comments Visuospatial/Exec / Trails Test 0/ Cube Copy 08/04 Clock: Contour 08/04 Clock: Numbers 08/04 Clock: Hands Naming 3/3 (of 3) Attention 1/ Repeat forward 0/1 Repeat backwards 08/04 Tapping for letter A 2/3 Serial 7 Subtraction (3pts=4+; 2pts=2+; 1pt=1) Language 1/2 Repeating Sentences Fluency 0/ Word Naming (1pt=11+ words) Abstraction 2/2 Similarities (Associations) Delayed Recall /5 (uncued) Orientation 08/04 Month Date 08/04 Year 08/04 Day of the week 08/04 Location 08/04 City Add 1 point if 12 years of education or less TOTAL 24/30 Score of 26 or greater considered normal documented in this encounter Plan of Treatment Not on filedocumented as of this encounter Visit Diagnoses Diagnosis Concussion without loss of consciousness , initial encounter documented in this encounter Care Teams Orthodontic Lab Technician Relationship Specialty Start Date End Date Ana Hendrix APRN PCP - General Geriatric Medicine 10/21/[address] [place] [address] documented as of this encounter
--- OUTSIDE RECORDS SUMMARY | 2022-02-18 02:11 | XMS_ITS | Encounter Summary ---
:1990 Author Organization [facility] Address [address] [place] [address] Care Team Providers Name Role Phone Elsi Castro RICKY Primary Care Provider Encounter Details Date Type Department Care Team Description 09/26/2017 Hospital Encounter Radiology Library at [facility] [place] [address] Social History Tobacco Use Types Packs/Day [...] Procedure Name Priority Date/Time Associated Comments Diagnosis FILM LIBRARY STORAGE STAT 09/26/2017 12:00 AM Results for this ONLY ULTRASOUND EST procedure ar e in STUDY the results section. documented in this encounter Results Film Library- Storage Only Ultrasound Study (09/26/2017 12:00 AM EST) Specimen (Source) Anatomical Location Collection Method / Collectio n Time Received Time / Laterality Volume Narrative ROLLY - 10/18/2017 10:21 PM EDT This result has an attachment that is no t available. This exam is for storage only and is aut o-finalizing. Bernardo Amaro MD IMArianna FILM LIBRARY ORDERABLES Performing Organization Address City/State/ZIP Code Phon e Number RAD [place], [place] documented in this encounter Visit Diagnoses Not on filedocumented in this encounter Care Teams Electronic Device Monitor Relationship Specialty Start Date End Date Elsi Castro APRN PCP - General Family Medicine 08/04/17 08/02/18 [address] [place] [address] documented as of this encounter
--- OUTSIDE RECORDS SUMMARY | 2022-02-18 02:11 | XMS_ITS | Encounter Summary ---
:1990 Author Organization [facility] [place] [address] Care Team Providers Name Role Phone Ana Hendrix APRN Primary Care Provider Encounter Details Date Type Department Care Team Description 05/19/2020 Notes Only Physical Therapy at [facility] [place] [place] Mireya Bass, [place] [address] Social History Tobacco Use Types Packs/Day Years Used Date Never Smoker Smokeless Tobacco: Never Used Alcohol Use Standard Drinks/Week Comments Yes 0 (1 standard drink = 0.6 oz pure alcoho l) Maybe one mixed drink a month Sex Assigned at Date Recorded Not on file documented as of this encounter Miscellaneous Notes Discharge - Therapy - Mireya Bass PT - 05/19/2020 4:45 PM EDT Lulú Oneil is a 29 y.o. female who presented to PT with dizziness, migraine, nausea s/p 2019concussion. Patient attended 10 visits between 11/29/2019 and 03/14/2020. Pt is discharged due to having contacted learning support assistant to self- discharge and reported seeking care elsewhere. No objective tests and measures available due to discharge without visit. Mireya Bass PT, ITPT, DPT [facility] documented in this encounter Plan of Treatment Not on filedocumented as of this encounter Visit Diagnoses Not on filedocumented in this encounter Care Teams Cigar Tobacco Rehandler Relationship Specialty Start Date End Date Ana Hendrix APRN PCP - General Geriatric Medicine 10/21/[address] [place] [address] documented as of this encounter
--- OUTSIDE RECORDS SUMMARY | 2022-02-18 02:11 | XMS_ITS | Encounter Summary ---
:1990 Author Organization [facility] Address [address] [place] [address] Care Team Providers Name Role Phone Elsi Castro RICKY Primary Care Provider Encounter Details Date Type Department Care Team Description 09/25/2017 Hospital Encounter [place] [address] Social History Tobacco Use Types Packs/Day [...] Procedure Name Priority Date/Time Associated Diagnosis Comme nts FILM LIBRARY STAT 09/25/2017 12:00 AM Results for this STORAGE ONLY CT EST procedure ar e in ABDOMEN AND PELVIS the resul ts section. documented in this encounter Results Film Library- Storage Only CT Abdomen & Pelvis (09/25/2017 12:00 AM EST) Specimen (Source) Anatomical Location Collection Method / Collectio n Time Received Time / Laterality Volume Narrative ROLLY - 10/18/2017 10:20 PM EDT This result has an attachment that is no t available. This exam is for storage only and is aut o-finalizing. Bernardo Amaro MD G FILM LIBRARY ORDERABLES Performing Organization Address City/State/ZIP Code Phon e Number [place], [place] documented in this encounter Visit Diagnoses Not on filedocumented in this encounter Care Teams Librarian Head Relationship Specialty Start Date End Date Elsi Castro APRN PCP - General Family Medicine 08/04/17 08/02/18 [address] [place] [address] documented as of this encounter
--- OUTSIDE RECORDS SUMMARY | 2022-02-18 02:11 | XMS_ITS | Encounter Summary ---
:1990 Author Organization [facility] [place] [address] Care Team Providers Name Role Phone Unknown Primary Care Provider Unavailable Reason for Visit Reason Comments Advice Only bbr Encounter Details Date Type Department Care Team Description 09/05/2014 Office Visit Plastic Surgery at [facility] Haylee Clayton, Breast ptosis [facility] [place] [address] [facility] [phone] PLASTIC SURGERY [place], [place] [address] (Wo rk) Social History Tobacco Use Types [...] Sign Reading Time Taken Comments Blood Pressure 130/78 09/05/2014 9:44 AM EST Pulse 69 09/05/2014 9:44 AM EST Temperature - - Respiratory Rate - - Oxygen Saturation - - Inhaled Oxygen Concentration - - Weight 60.8 kg (134 lb) 09/05/2014 9:44 AM EST Height 161 cm (5' 3.4) 09/05/2014 9:44 AM EST Body Mass Index 23.44 09/05/2014 9:44 AM EST documented in this encounter Progress Notes April Durand, RICKY - 09/05/2014 9:41 AM EST Patient ID: Lulú Oneil, a 24 y.o. female, presents for cosmetic concerns of her breasts. She is alone for today's visit. She is here for discussion of a breast lift. She has breast fed 2 children and her breasts are now deflated. She is not planning to have any other children. She reports that she has to wear 2 bras to keep her breasts in place. She is interested in a breast lift, not a reduction. She is not sure if she wants implants to increase her breast volume. Past Medical History Diagnosis Date ??? Breast disease February 2011 Fibrocystic breasts ??? Chronic pain February 2013 Chronic upper back and neck pain ??? Digestive problems September 2008 Hemmroids ??? Genital disease, female June 2012 Abnormal Pap ??? Headache(784.0) August 2011 Frequent headaches, migraines ??? Mental or behavioral problem Laird Depression Past Surgical History Procedure Laterality Date ??? Gastroenterology procedure March 2013 Hemorrhoidectomy No current outpatient prescriptions on file prior to visit. No current facility-administered medications on file prior to visit. No Known Allergies Objective: Physical Exam: BP 130/78 Pulse 69 Ht 161 cm (5' 3.4) Wt 60.782 kg (134 lb) BMI 23.45 kg/m2 Bra size: B-C Body mass index is 23.45 kg/(m^2). Body surface area is 1.65 meters squared. General: On my examination today, she appears to be in good health. Her emotional outlook is positive and she asked appropriate questions throughout the visit. Musculoskeletal: Her back is straight without evidence of kyphosis. BREAST MEASUREMENTS RIGHT LEFT Ptosis 1 1 SN-N (cm) 22 21 IMF-N (cm) 9 9.5 NAC elevat (cm) 0.5 0.5 Masses absent absent Assessment and Plan: Impression: The patient is a suitable candidate for mastopexy, or implant placement. We discussed the options for lifting the breast including anchor scar or vertical scarring techniqueas well as a crescent resection. We briefly discussed volume enhancement and its role in lifting herbreast. She has been provided with the [facility] patient information brochure as well as their informed consent document. We will proceed with getting her pricing information from [employer]. She will schedule an appointment to meet with a surgeon to discuss technique if desired. I, Judie Maloney, am acting as scribe for April Durand. All work documented was performed by April Durand. ???I performed the above scribed service and agree with the accuracy of the note?? April Durand APRN documented in this encounter Plan of Treatment Not on filedocumented as of this encounter Visit Diagnoses Diagnosis Breast ptosis Ptosis of breast documented in this encounter Care Teams Division Engineer Relationship Specialty Start Date End Date Unknown PCP - General 08/24/14 08/03/17 None documented as of this encounter
--- OUTSIDE RECORDS SUMMARY | 2022-02-18 02:11 | XMS_ITS | Encounter Summary ---
:1990 Author Organization [facility] Address [address] [place] [address] Care Team Providers Name Role Phone Cynthia Hendrixica RICKY Primary Care Provider Encounter Details Date Type Department Care Team Description 03/07/2020 Office Visit Physical Therapy at Mireya Bass Post concussional syndrome; [facility] L, PT Nausea; [facility] Dizziness and giddiness; Drive Visual discomfort, unspecifi ed laterality; [place], [place]ache[place] [phone] Social [...] - Therapy - Mireya Bass, PT - 03/07/2020 11:00 AM EDT Images from the original note were not included. Physical Therapy Daily Note Total treatment time: 60 minutes Total timed code treatment: 60 minutes Initial eval: 11/29/2019 - 02/26/2020 Follow up visit for patient with ICD-10-CM 1. Postconcussional syndrome F07.81 2. Nausea R11.0 3. Dizziness and giddiness R42 4. Visual discomfort, unspecified laterality H53.149 5. Headache, chronic daily R51 S: I feel okay today, but I didn't drive here O: Therex: Neuromuscular Re-Ed (50413) 52 min Self Care/Home Management (54305) 8 min Neuromuscular Re-ed 52 min Computerized Dynamic Posturography (CDP) Sensory organization test (SOT) Motor control test (MCT) Adaptation test (AT) ?? Gaze stabilization, seated unsupported, quiet background ?? Week 3 head movement ex 1: target on wall 6-10 feet ?? horiz ?? 25 turns, 22.8s ?? 37 turns, 33s ?? [place] harder, my eyes felt tired ?? Independent use of focal point strategy for symptom management ?? Week 3 head movement ex 2: target stick at arm length ?? horiz ?? 27 turns, 24s ?? 30 turns, 27.2s ?? Week 3 head movement ex 4: head/eye coordination - look at target, face target, alternate, standing. ?? Horiz ?? 7 turns, 12.8s ?? 9 turns, 24.4s TherEx x8 min ?? B UT stretch 3x30s ?? B LS stretch 3x30s ?? B pec stretch, doorway 3x30s ?? diaphragmatic breathing x4 ?? May perform in any position * indicates elements added to home exercise program following instruction and practice in clinic A: Patient reports no exacerbation of symptoms despite long drive to arrive to appointment due to having been a passenger. SOT assessment demonstrates sensory integration below normal limits, with visual sensory inputs for balance most challenged. AT demonstrates ability to learn and respond to novel balance challenge. Patient able to complete all gaze stabilization exercises following CDP testing and was independent with taking breaks to manage symptoms. P: Progress note. Progress gaze stabilization. Long chart. Reinforce symptom management, focal pointstrategy Treatment may include: Manual Techniques, Soft Tissue [...] in visual field. beyond hand length ? tray setter goals By 01/10/2020 ? 11/29/2019 ? Patient [...] symptom witheach activity ? Mireya Bass, PT, ITPT, DPT [facility] documented in this encounter Plan of Treatment Not on filedocumented as of this encounter Visit Diagnoses Diagnosis Postconcussional syndrome Postconcussion syndrome Nausea Nausea alone Dizziness and giddiness Visual discomfort, unspecified lateralit y Headache, chronic daily Headache documented in this encounter Care Teams Wood Filler Relationship Specialty Start Date End Date Ana Hendrix APRN PCP - General Geriatric Medicine 10/21/[address] [place] [address] documented as of this encounter
--- OUTSIDE RECORDS SUMMARY | 2022-02-18 02:11 | XMS_ITS | Encounter Summary ---
:1990 Author Organization [facility] Address [address] [place] [address] Care Team Providers Name Role Phone Ana Hendrix APRN Primary Care Provider Encounter Details Date Type Department Care Team Description 03/07/2020 Office Visit Occupational Therapy Juvenal Barker cussion without at [facility] G, OT loss of [facility] con [place] [address] PHYSICAL MEDICINE [phone] & [place] [address] Social History Tobacco Use Types Packs/Day Years Used Date Never Smoker Smokeless Tobacco: Never Used Alcohol Use Standard Drinks/Week Comments Yes 0 (1 standard drink = 0.6 oz pure alcoho l) Maybe one mixed drink a month Sex Assigned at Date Recorded Not on file documented as of this encounter Miscellaneous Notes Treatment - Therapy - Juvenal Barker, OT - 03/07/2020 9:00 AM EDT OCCUPATIONAL THERAPY TREATMENT NOTE REFERRAL SOURCE: Ana DONALD MD FOLLOW-UP: PRN TOTAL TREATMENT TIME: 58 Minutes TIMED CODE TREATMENT TIME: 58 minutes; Therex: Neuromuscular Re-Ed (06704) 58 min OCCUPATIONAL PROFILE: PAST MEDICAL HISTORY: [...] 02/10 Location: headache frontal area. TREATMENT TODAY: Reviewed use of GPDR for [...] in an attempt to try to balance. Peripheral Vision Awareness: Your eyes need to [...] This was with no increase in symptoms. This was practiced further trying to move her eyes instead of rotate her neck and she decreasedher time to 14 seconds. Don ball challenging mild horizontal tracking. We then challenged convergence/divergence. The Doll Chair Assembly Task (DCAT) Test by [employer]: Progressive Occupational Demand Suite Produced by [employer] The DACT is a standardized and situational [...] the concepts of Goal Plan Do Review. We then applied Goal plan do review to organizing her problem solving. She was presented a flower garden issue for which she required assistance to grasp the concept but then was able to organize how she would thing through the task. She was encouraged to apply this to challenges she is experiencing at home. CLINICAL DECISION MAKING: Lulú Oneil presents with activity limitations and/or participation restrictions due to performance deficits in working memory, planning, organization, behavioral self regulation, shifting ability, cognitive endurance, light sensitivity, and headache. She presented with improved performance for visual exercises today with better peripheral awareness and increased speed andaccuracy of saccades. She is motivated to continue working with this for her home exercises. She hasbeen using GPDR with some success and was able to grasp the concept of applying this to problem solving type tasks today. Energy conservation has been a challenge for her with multiple days per week ofoverdoing. She understands the concepts but will need [...] telemedicine visits to progress toward short and ferry terminal agent goals for Cognitive retraining compensatory strategies Treatment to include use of: Therapeutic Exercise, Therapeutic Activities, Neuromuscular Re-education, Patient/Caregiver education with a compensatory and rehabilitative approach Electrician Substation Goals (to be met by discharge): Date [...] Temperament and personality: Appropriate. Specific mental functions [place] Cognitive Assessment (MoCA) Results: Comments Visuospatial/Exec 1/ Trails Test 0/1 Cube Copy 1 Clock: Contour 1 Clock: Numbers 08/04 Clock: Hands Naming 3/3 (of 3) Attention 1/ Repeat forward 0/1 Repeat backwards 08/04 Tapping for letter A 2/3 Serial 7 Subtraction (3pts=4+; 2pts=2+; 1pt=1) Language 1/2 Repeating Sentences Fluency 0/1 Word Naming (1pt=11+ words) Abstraction 2/2 Similarities (Associations) Delayed Recall 5/5 (uncued) Orientation 08/04 Month 0/ Date 08/04 Year 08/04 Day of the [...] client to read the sentences on the A[employer] text card at a distance of 40cm/16 [...] direction of the eye movement. No movement documented in this encounter Plan of Treatment Not on filedocumented as of this encounter Visit Diagnoses Diagnosis Concussion without loss of consciousness , initial encounter documented in this encounter Care Teams Patrol Conductor Relationship Specialty Start Date End Date Ana Hendrix APRN PCP - General Geriatric Medicine 10/21/[address] [place] [address] documented as of this encounter
--- OUTSIDE RECORDS SUMMARY | 2022-02-18 02:11 | XMS_ITS | Encounter Summary ---
:1990 Author Organization [facility] Address [facility] [address] [place] [address] Care Team Providers Name Role Phone Ana Hendrix APRN Primary Care Provider Encounter Details Date Type Department Care Team Description 02/11/2020 TH Visit Physical Therapy at Mireya Bass Post concussional syndrome; (TeleHealth) [facility], PT Nausea; [facility] Dizziness and giddiness; Drive Visual discomfort, unspecifi ed laterality; [place], [place] Headache, chron ic daily [id number] Social History Tobacco Use Types Packs/Day Years Used Date Never Smoker Smokeless Tobacco: Never Used Alcohol Use Standard Drinks/Week Comments Yes 0 (1 standard drink = 0.6 oz pure alcoho l) Maybe one mixed drink a month Sex Assigned at Date Recorded Not on file documented as of this encounter Miscellaneous Notes Treatment - Therapy - Mireya Bass, PT - 02/11/2020 8:30 AM EDT Rehabilitation Medicine - Telemedicine Encounter Patient: Lulú Oneil MR Number: [id number] Date of : 1990 Home Address: [address] [place] [address] Phone Number (Home, Mobile): Date of Visit: 02/11/2020 Patient Location at time of visit: bedroom at home; Lulú Oneil is aware that I will need to confirm this location each time we meet. Others in the same physical location as the patient: entire family This therapist is legally able to treat the patient in [place] and [place] via Telehealth due to license waiver agreement during Covid 19 crisis. NOTE: Lulú Oneil has verbally consented to participate in a Telemedicine visit with Mireya Bass PT as her Rehabilitation Medicine provider while the [facility] Covid 19 crisis is taking place. This Telemedicine visit was comprised of both Audio and Visual through a secure connection throughout the duration of this visit. Patient understands this is a therapy service and will be billed to her insurance. Patient consents that therapy or educational materials could be sent through [facility] or e-mail address at: . Lulú Oneil did not have any questions for me at this time and was informed the best way to reach me is through [facility]. Physical Therapy Daily Note Total treatment time: 40 minutes Total timed code treatment: 40 minutes Current Medicare Cert Period 11/29/2019 - 02/26/2020 Follow up visit for patient with ICD-10-CM 1. Postconcussional syndrome F07.81 2. Nausea R11.0 3. Dizziness and giddiness R42 4. Visual discomfort, unspecified laterality H53.149 5. Headache, chronic daily R51 S: Patient reports migraine today Baseline: Headache 7/10, Dizziness 0/10, Nausea 0/10, Fogginess 3/10 O: Therex: Neuromuscular Re-Ed (59542) 30 min Self Care/Home Management (58060) 10 min Self-care / home management ?? No further complications with recent hysterectomy ?? Skilled discussion for not performing double the amount of exercises prescribed by both OT and PT ?? Reworking schedule for in person visits with OT Neuromuscular Re-ed 30 min ?? Gaze stabilization, seated unsupported, quiet background ?? Week 3 head movement ex 1: target on wall 6-10 feet ?? horiz 2x15 s ?? Vertical - d/c for now, unable to complete 2 head turns without worsening of symptoms ?? Week 3 head movement ex 2: target stick at arm length ?? horiz 2x15s ?? D/c vertical as with ex 1 ?? Week 3 head movement ex 3: checkerboard with single letter ?? 17s ?? Increase in headache intensity, fogginess ?? Homework to build tolerance for complex background ?? Week 3 head movement ex 4: head/eye coordination - look at target, face target, alternate, standing. ?? Horiz x60s, vert x60s ?? If unable to perform both due to migraine, prioritize vertical ?? Week 3 head movement ex 5: eye chart taped to wall, seated, quiet background. Focus on target letter, close eyes, move head, open eyes, correct to target prn. Repeat, varying magnitude, direction, and speed of head turn ?? 1 min vertical ?? Headache increased to an 8 ?? Long chart ?? I feel like I don't remember the names of the letters, seems to happen randomly ?? No mistakes in clinic, able to complete 5 lines accurate with no exacerbation ?? DC tracking - Font Times 26 ?? 2 min 28s ?? Headache intensified, eyes fatigued ?? No errors * indicates elements added to home exercise program following instruction and practice in clinic A: Patient reports no further complication from recent hysterectomy. Patient reports not doing as much visual exercise due to worsening of migraines. Introduced DC tracking, patient able to complete without errors with no rest break, with exacerbation of migraine. Patient comprehension for d/c vertical gaze stability demonstrated by teach back. P: Progress gaze stabilization. Long chart. Reinforce [...] in visual field. beyond hand length ? longterm goals By 01/10/2020 ? 11/29/2019 ? Patient [...] activity ? Mireya Bass, PT, ITPT, DPT [facility] documented in this encounter Plan of Treatment Not on filedocumented as of this encounter Visit Diagnoses Diagnosis Postconcussional syndrome Postconcussion syndrome Nausea Nausea alone Dizziness and giddiness Visual discomfort, unspecified lateralit y Headache, chronic daily Headache documented in this encounter Care Teams Blueprinting And Photocopy Supervisor Relationship Specialty Start Date End Date Ana Hendrix APRN PCP - General Geriatric Medicine 10/21/19 [address] [place] [address] documented as of this encounter
--- OUTSIDE RECORDS SUMMARY | 2022-02-18 02:11 | XMS_ITS | Encounter Summary ---
:1990 Author Organization [place] [address] Care Team Providers Name Role Phone Ana Hendrix APRN Primary Care Provider Encounter Details Date Type Department Care Team Description 02/23/2020 TH Visit Physical Therapy at Mireya Bass Post concussional syndrome; (TeleHealth) [facility], [place] [id number] Social History Tobacco Use Types Packs/Day Years Used Date Never Smoker Smokeless Tobacco: Never Used Alcohol Use Standard Drinks/Week Comments Yes 0 (1 standard drink = 0.6 oz pure alcoho l) Maybe one mixed drink a month Sex Assigned at Date Recorded Not on file documented as of this encounter Miscellaneous Notes Treatment - Therapy - Mireya Bass, PT - 02/23/2020 9:00 AM EDT Rehabilitation Medicine - Telemedicine Encounter Patient: Lulú Oneil MR Number: [id number] Date of : 1990 Home Address: [address] [place] [address] Phone Number (Home, Mobile): Date of Visit: 02/23/2020 Patient Location at time of visit: at home in kids room; Lulú Oneil is aware that I will need to confirm this location each time we meet. Others in the same physical location as the patient: home alone This therapist is legally able to treat the patient in [place] and [place] via Telehealth due to license waiver agreement during Covid 19 crisis. NOTE: Lulú Oneil has verbally consented to participate in a Telemedicine visit with Mireya Bass PT as her Rehabilitation Medicine provider while the [facility] Covid 19 crisis is taking place. This Telemedicine visit was comprised of both Audio and Visual through a secure connection throughout the duration of this visit. Patient understands this is a therapy service and will be billed to her insurance. Patient consents that therapy or educational materials could be sent through [facility] or e-mail address at: . Lulú Oneil did not have any questions for me at this time and was informed the best way to reach me is through [facility]. Physical Therapy Daily Note Total treatment time: 45 minutes Total timed code treatment: 45 minutes Current Medicare Cert Period 11/29/2019 - 02/26/2020 Follow up visit for patient with ICD-10-CM 1. Postconcussional syndrome F07.81 2. Nausea R11.0 S: Patient reports having seen neurologist, medications were changed. Patient reports that injectiontakes 3 months to have an effect, but is noticing a slight improvement in headaches. O: Therex: Neuromuscular Re-Ed (21765) 25 min Self Care/Home Management (43038) 20 min Self-care / home management ?? Skilled discussion for not performing double the amount of exercises prescribed by both OT and PT ?? Decreasing exercises and goal times, providing self-verbal cues to improve coordination ?? Importance of managing stressors, such as around schooling for children, managing headaches, organizing household Neuromuscular Re-ed 25 min ?? Computerized Dynamic Posturography ?? Skilled discussion for CDP, available assessments, using results to more finely target exercises ?? Gaze stabilization, seated unsupported, quiet background ?? Week 3 head movement ex 1: target on wall 6-10 feet ?? horiz 20s ?? Vertical - 8 head turns ?? 19 in 20 seconds with self-verbal cue of counting ?? Week 3 head movement ex 2: target stick at arm length ?? horiz 2x15s ?? D/c vertical as with ex 1 ?? Week 3 head movement ex 4: head/eye coordination - look at target, face target, alternate, standing. ?? Horiz x16s, vert x60s ?? If unable to perform both due to migraine, prioritize vertical ?? Skilled discussion for adjusting HEP ?? ceasing checkerboard and eye chart exercises until VORx1 and head/eye coordination are tolerable for a 1 minute interval ?? Decreasing goal intervals to 30s, stopping if symptoms are provoked ?? Attempting 1 min of Long chart and/or AL tracking on days when headache isn't as bad * indicates elements added to home exercise program following instruction and practice in clinic A: Patient reports slight improvement in headache may be due to adjustment in migraine medications and/or having a quiet morning without children in the house. Patient reports feeling disorganized about which exercises to do. Reviewed HEP, adjusted intervals and exercises to make goals achievable, patient comprehension demonstrated by teach back of using chart as check list. Patient improvement demonstrated by ability to complete 20s of vertical gaze stability. P: Progress gaze stabilization. Long chart. Reinforce [...] in visual field. beyond hand length ? terminal make up operator goals By 01/10/2020 ? 11/29/2019 ? Patient [...] activity ? Mireya Bass, PT, ITPT, DPT [facility] documented in this encounter Plan of Treatment Not on filedocumented as of this encounter Visit Diagnoses Diagnosis Postconcussional syndrome Postconcussion syndrome Nausea Nausea alone documented in this encounter Care Teams Crusher Machine Operator Relationship Specialty Start Date End Date Ana Hendrix APRN PCP - General Geriatric Medicine 10/21/19 [address] [place] [place] [address] documented as of this encounter
--- OUTSIDE RECORDS SUMMARY | 2022-02-18 02:11 | XMS_ITS | Encounter Summary ---
:1990 Author Organization [facility] Address [address] [place] [address] Care Team Providers Name Role Phone Elsi Castro RICKY Primary Care Provider Encounter Details Date Type Department Care Team Description 10/13/2017 Hospital Encounter [facility] [place] [address] Social History Tobacco Use Types Packs/Day [...] Associated Diagnosis Comme nts FILM LIBRARY STAT 10/13/2017 12:00 AM Results for this STORAGE ONLY CT EDT procedure ar e in ABDOMEN AND PELVIS the resul ts section. documented in this encounter Results Film Library- Storage Only CT Abdomen & Pelvis (10/13/2017 12:00 AM EDT) Specimen (Source) Anatomical Location Collection Method / Collectio n Time Received Time / Laterality Volume Narrative ROLLY - 10/18/2017 10:22 PM EDT This result has an attachment that is no t available. This exam is for storage only and is aut o-finalizing. Bernardo Amaro MD Arianna FILM LIBRARY ORDERABLES Performing Organization Address City/State/ZIP Code Phon e Number [place]LLY [place], [place] documented in this encounter Visit Diagnoses Not on filedocumented in this encounter Care Teams Global Expansion Sales Director Relationship Specialty Start Date End Date Elsi Castro APRN PCP - General Family Medicine 08/04/17 08/02/[address] [place] [id number] documented as of this encounter
[2022-02-18 13:55] LABS: Source Nasal/Nares
[2022-02-18 17:16] LABS: COVID-19 PCR Negative (Negative)
== END 2022-02-18 02:05 | disposition home or self-care (01) ==
LOC: LBO 02:04
PROVIDERS: Obstetrics & Gynecology; PCP Nurse Practitioner Adult Health; Visit Provider Obstetrics & Gynecology Gynecology
DX: Z20.822 Contact with and (suspected) exposure to COVID-19 (principal); Z01.818 Encounter for other preprocedural examination
CPT/HCPCS: 87635

== ENCOUNTER 2022-02-18 02:05 | Outpatient (CLI) | payer MEDICAID, SELFPAY | END 2022-02-18 02:06 | disposition home or self-care (01) | LOC: LBO 02:05 | PROVIDERS: PCP Nurse Practitioner Adult Health; Visit Provider Obstetrics & Gynecology Gynecology ==

== ENCOUNTER 2022-02-19 03:52 | Emergency (ER) | payer MEDICAID, SELFPAY ==
--- OUTSIDE RECORDS SUMMARY | 2022-02-19 03:57 | XMS_ITS | Encounter Summary ---
:1990 Author Organization [facility] [place] [address] Care Team Providers Name Role Phone Ana Hendrix APRN Primary Care Provider Encounter Details Date Type Department Care Team Description 05/19/2020 Notes Only Physical Therapy at [facility] Mireya Bass, [place] [address] Social History Tobacco Use Types Packs/Day [...] Pt is discharged due to having contacted technical support engineer to self- discharge and reported seeking care elsewhere. No objective tests and measures available due to discharge without visit. Mireya Bass PT, ITPT, DPT [facility] Out[facility] Rehabilitation documented in this encounter Plan of Treatment Not on filedocumented as of this encounter Visit Diagnoses Not on filedocumented in this encounter Care Teams Esthetician Makeup Artist Relationship Specialty Start Date End Date Ana Hendrix APRN PCP - General Geriatric Medicine 10/21/[address] [place] [address] documented as of this encounter
--- OUTSIDE RECORDS SUMMARY | 2022-02-19 03:57 | XMS_ITS | Encounter Summary ---
:1990 Author Organization [facility] Address [address] [place] [address] Care Team Providers Name Role Phone Ana Hendrix APRN Primary Care Provider Encounter Details Date Type Department Care Team Description 03/14/2020 Office Visit Occupational Therapy Juvenal Barker cussion without at [facility], OT loss of [facility] [place] [address] PHYSICAL MEDICINE [phone] & [place] [address] Social History Tobacco Use Types Packs/Day Years [...] TREATMENT TIME: 58 minutes; Therex: Neuromuscular Re-Ed (35171) 28 min Cognitive Skills (62455) 30 min OCCUPATIONAL PROFILE: PAST MEDICAL HISTORY: [...] telemedicine visits to progress toward short and senior living goals for Cognitive retraining compensatory strategies Treatment to include use of: Therapeutic Exercise, Therapeutic Activities, Neuromuscular Re-education, Patient/Caregiver education with a compensatory and rehabilitative approach Survey Coordinator Goals (to be met by discharge): Date [...] Temperament and personality: Appropriate. Specific mental functions [place] Cognitive Assessment (MoCA) Results: Comments Visuospatial/Exec 1/ [...] Day of the week 08/04 Location 08/04 [facility] Add 1 point if 12 years of [...] client to read the sentences on the [place] [employer] text card at a distance of 40cm/16 [...] Doll Chair Assembly Task (DCAT) Test by [employer]: Progressive Occupational Demand Suite Produced by [employer] The DACT is a standardized and situational [...] encounter documented in this encounter Care Teams Mud Mixer Helper Relationship Specialty Start Date End Date Ana Hendrix APRN PCP - General Geriatric Medicine 10/21/[address] [place] [address] documented as of this encounter
--- OUTSIDE RECORDS SUMMARY | 2022-02-19 03:57 | XMS_ITS | Encounter Summary ---
:1990 Author Organization [facility] [place] [address] Care Team Providers Name Role Phone Ana Hendrix APRN Primary Care Provider Encounter Details Date Type Department Care Team Description 05/15/2020 Telephone Occupational Therapy at [facility] Juvenal Barker OT [facility] [place] [address] PHYSICAL MEDICINE & [phone] [place] [address] Social History Tobacco Use Types Packs/Day Years Used Date Never Smoker Smokeless Tobacco: Never Used Alcohol Use Standard Drinks/Week Comments Yes 0 (1 standard drink = 0.6 oz pure alcoho l) Maybe one mixed drink a month Sex Assigned at Date Recorded Not on file documented as of this encounter Miscellaneous Notes Telephone Encounter - Juvenal Barker OT - 05/15/2020 12:59 PM EDT Patient was called and a message was left regarding her no show today and number of last minute cancels prior to this. She was encouraged to call back to discuss this. documented in this encounter Plan of Treatment Not on filedocumented as of this encounter Visit Diagnoses Not on filedocumented in this encounter Care Teams Flight Engineer Helicopter Relationship Specialty Start Date End Date Ana Hendrix APRN PCP - General Geriatric Medicine 10/21/19 [address] [place] [address] documented as of this encounter
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
--- OUTSIDE RECORDS SUMMARY | 2022-02-19 03:58 | XMS_ITS | Encounter Summary ---
:1990 Author Organization [facility] Address [address] [place] [address] Care Team Providers Name Role Phone Ana Hendrix APRN Primary Care Provider Encounter Details Date Type Department Care Team Description 12/21/2019 TH Visit Physical Therapy at Mireya Bass Post concussional syndrome; (TeleHealth) [facility] L, PT Nausea; [facility] Dizziness and giddiness; Drive Visual discomfort, unspecifi ed laterality; [place], [place] Headache, [place] [address] Social History Tobacco Use Types Packs/Day Years [...] Telemedicine Encounter Patient: Lulú Oneil MR Number: [id number] Date of : 1990 Home Address: [address] [place] [address] Phone Number (Home, Mobile): Date of Visit: 12/21/2019 Patient Location at time of visit: bedroom at home; Lulú Oneil is aware that I will need to confirm this location each time we meet. Others in the same physical location as the patient: entire family This therapist is legally able to treat the patient in [place] and [place] via Telehealth due to license waiver agreement during Covid 19 crisis. NOTE: Lulú Oneil has verbally consented to participate in a Telemedicine visit with Mireya Bass PT as her Rehabilitation Medicine provider while the [facility] Covid 19 crisis is taking place. This Telemedicine visit was comprised of both Audio and Visual through a secure connection throughout the duration of this visit. Patient understands this is a therapy service and will be billed to her insurance. Patient consents that therapy or educational materials could be sent through [facility] or e-mail address at: [email or web address] Lulú Oneil did not have any questions for me at this time and was informed the best way to reach me is through [facility]. Physical Therapy Daily Note Total treatment time: 45 minutes Total timed code treatment: 45 minutes Current Medicare Cert Period 11/29/2019 - 02/26/2020 Follow up visit for patient with ICD-10-CM 1. Postconcussional syndrome F07.81 2. Nausea R11.0 3. Dizziness and giddiness R42 4. Visual discomfort, unspecified laterality H53.149 5. Headache, chronic daily R51 S: Patient reports small improvement. Patient saw her [facility] Med department for return to work evaluation and was denied. Patient reports laproscopic hysterectomy scheduled for 12/22/2019. Baseline: Headache 5/10, Dizziness 0/10, Nausea 2/10, Fogginess 2/10 O: Therex: Neuromuscular Re-Ed (64981) 15 min Self Care/Home Management (32402) 30 min Self-care / home management ?? [...] pain, saccadic eye movement. Handouts sent via [employer]. P: Progress gaze stabilization. Long chart. Reinforce [...] in visual field. beyond hand length ? [facility] goals By 01/10/2020 ? 11/29/2019 ? Patient [...] ? Mireya Bass, PT, PT, ITPT, DPT [facility] Outpatient Rehabilitation documented in this encounter Plan of Treatment Not on filedocumented as of this encounter Visit Diagnoses Diagnosis Postconcussional syndrome Postconcussion syndrome Nausea Nausea alone Dizziness and giddiness Visual discomfort, unspecified lateralit y Headache, chronic daily Headache documented in this encounter Care Teams Cashier And Salesperson Relationship Specialty Start Date End Date Ana Hendrix APRN PCP - General Geriatric Medicine 10/21/[address] [place] [address] documented as of this encounter
--- OUTSIDE RECORDS SUMMARY | 2022-02-19 03:58 | XMS_ITS | Encounter Summary ---
:1990 Author Organization [facility] Address [address] [place] [address] Care Team Providers Name Role Phone Elsi Castro RICKY Primary Care Provider Encounter Details Date Type Department Care Team Description 09/26/2017 Hospital Encounter Radiology Library [place] [address] Social History Tobacco Use Types Packs/Day [...] Address City/State/ZIP Code Phon e Number RAD [place], [place] documented in this encounter Visit Diagnoses Not on filedocumented in this encounter Care Teams Aircraft Painter Relationship Specialty Start Date End Date Elsi Castro APRN PCP - General Family Medicine 08/04/17 08/02/18 [address] [place] [address] documented as of this encounter
--- OUTSIDE RECORDS SUMMARY | 2022-02-19 03:58 | XMS_ITS | Encounter Summary ---
:1990 Author Organization [place] [address] Care Team Providers Name Role Phone Ana Hendrix APRN Primary Care Provider Reason for Visit Physical Therapy (Routine) - Closed Specialty Diagnoses / Procedures Referred By Contact Refer red To Contact Physical Therapy Diagnoses Postconcussional syndrome Nausea Dizziness and giddiness Headache Visual discomfort, unspecified POST-CONCUSSIVE SYNDROME S/P HEAD TRAUMA SUSTAINED 09/03/19 Ana Hendrix APRN [facility] [address] [place] [address] [address] [place] [address] Fax: Referral ID Status Reason Start Date Expiration Date Visits V isits Requested Authorized [id number] Closed Consult, Test 11/17/2019 11/16/2020 [facility] PCP Updated and/or Approved Encounter Details Date Type Department Care Team Description 11/29/2019 TH Visit Physical Therapy at Mireya Bass Post concussional syndrome; (TeleHealth) [facility] L, PT Nausea; [facility] Dizziness and giddiness; Drive Visual discomfort, unspecifi ed laterality; [place], [place] Headache, [place] [phone] Social [...] Telemedicine Encounter Patient: Lulú Oneil MR Number: [id number] Date of : 1990 Home Address: [address] [place] [address] Phone Number (Home, Mobile): Date of Visit: 11/29/2019 Patient Location at time of visit: at home; Lulú Oneil is aware that I will need to confirm this location each time we meet. Others in the same physical location as the patient: entire family, alone in the bedroom This therapist is legally able to treat the patient in [place] and [place] via Telehealth due to license waiver agreement during Covid 19 crisis. NOTE: Lulú Oneil has verbally consented to participate in a Telemedicine visit with Mireya Bass PT as her Rehabilitation Medicine provider while the [facility] Covid 19 crisis is taking place. This Telemedicine visit was comprised of both Audio and Visual through a secure connection throughout the duration of this visit. Patient understands this is a therapy service and will be billed to her insurance. Patient consents that therapy or educational materials could be sent through [facility] or e-mail address at: [email or web address]. Lulú Oneil did not have any questions for me at this time and was informed the best way to reach me is through [facility]. Physical Therapy Initial Evaluation Note: Outpatient Date [...] headache and nausea with all ADLs, IADLs, button and buckle maker, 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 Patient's goals for physical [...] approach in visual field. beyond hand length prison goals By 01/10/2020 11/29/2019 Patient will improve [...] Total Timed Coded Treatment:Self-care / Home management [address] 20 min, Evaluation MODERATE Complexity(02307) 50 min Total treatment time: 70 minutes Mireya Bass, PT [facility] Outpatient Rehabilitation documented in this encounter Plan of Treatment Not on filedocumented as of this encounter Visit Diagnoses Diagnosis Postconcussional syndrome Postconcussion syndrome Nausea Nausea alone Dizziness and giddiness Visual discomfort, unspecified lateralit y Headache, chronic daily Headache documented in this encounter Care Teams Finisher Card Tender Relationship Specialty Start Date End Date Ana Hendrix APRN PCP - General Geriatric Medicine 10/21/[address] [place] [address] documented as of this encounter
--- OUTSIDE RECORDS SUMMARY | 2022-02-19 03:58 | XMS_ITS | Encounter Summary ---
:1990 Author Organization [facility] [place] [address] Care Team Providers Name Role Phone Elsi Castro RICKY Primary Care Provider Reason for Referral Consultation (Routine) - Closed Specialty Diagnoses / Procedures Referred By Contact Refer red To Contact Pain Management Diagnoses Chronic abdominal pain Gatito Elizabeth MD [facility] [address] [place] [address] D [facility] [place] [address] [place] [address] Fax: Referral ID Status Reason Start Date Expiration Date Visits V isits Requested Authorized [id number] Closed Specialty 10/19/2017 10/19/2018 1 1 Service Requested Encounter Details Date Type Department Care Team Description 10/19/2017 Telephone Urology Gatito Elizabeth MD [place] [address] UROLOGY DEPT [phone] [place] [phone] (Wo rk) Social History Tobacco Use Types [...] site documented in this encounter Care Teams Ab Initio Etl Developer Relationship Specialty Start Date End Date Elsi Castro, RICKY PCP - General Family Medicine 08/04/17 08/02/[address] [place] [address] documented as of this encounter
--- OUTSIDE RECORDS SUMMARY | 2022-02-19 03:58 | XMS_ITS | Encounter Summary ---
:1990 Author Organization [facility] Address [address] [place] [address] Care Team Providers Name Role Phone Elsi Castro RICKY Primary Care Provider Encounter Details Date Type Department Care Team Description 10/13/2017 Hospital Encounter Radiology Library at [facility] [place] [address] Social History Tobacco Use Types Packs/Day [...] Address City/State/ZIP Code Phon e Number [place], [place] documented in this encounter Visit Diagnoses Not on filedocumented in this encounter Care Teams Electrical Manager Relationship Specialty Start Date End Date Elsi Castro APRN PCP - General Family Medicine 08/04/17 08/02/[address] [place] [address] documented as of this encounter
--- OUTSIDE RECORDS SUMMARY | 2022-02-19 03:58 | XMS_ITS | Encounter Summary ---
:1990 Author Organization [place] [address] Care Team Providers Name Role Phone Unknown Primary Care Provider Unavailable Reason for Visit Reason Comments Advice Only bbr Encounter Details Date Type Department Care Team Description 09/05/2014 Office Visit Plastic Surgery at [facility] Haylee Clayton, Breast ptosis [facility] [place] [address] [facility] [phone] PLASTIC SURGERY [place], [place] [address] (Wo rk) Social History Tobacco [...] herbreast. She has been [facility] with [facility] as well as their informed consent document. We will proceed with getting her pricing information from [employer]. She will schedule an appointment to meet [...] breast documented in this encounter Care Teams Carbon Furnace Operator Relationship Specialty Start Date End Date Unknown PCP - General 08/24/14 08/03/17 None documented as of this encounter
--- OUTSIDE RECORDS SUMMARY | 2022-02-19 03:58 | XMS_ITS | Encounter Summary ---
:1990 Author Organization [facility] Address [address] [place] [address] Care Team Providers Name Role Phone Ana Hendrix APRN Primary Care Provider Encounter Details Date Type Department Care Team Description 12/07/2019 TH Visit Physical Therapy at Mireya Bass Post concussional syndrome; (TeleHealth) [facility] L, PT Nausea; [facility] Dizziness and giddiness; Drive Visual discomfort, unspecifi ed laterality; [place], [place] Headache, [place] [phone] Social History Tobacco Use Types Packs/Day Years [...] Telemedicine Encounter Patient: Lulú Oneil MR Number: [id number] Date of : 1990 Home Address: [address] [place] [address] Phone Number (Home, Mobile): Date of Visit: 12/07/2019 Patient Location at time of visit: bedroom at home; Lulú Oneil is aware that I will need to confirm this location each time we meet. Others in the same physical location as the patient: entire family This therapist is legally able to treat the patient in [place] and [place] via Telehealth due to license waiver agreement during Covid 19 crisis. NOTE: Lulú Oneil has verbally consented to participate in a Telemedicine visit with Mireya Bass PT as her Rehabilitation Medicine provider while the [facility] Covid 19 crisis is taking place. This Telemedicine visit was comprised of both Audio and Visual through a secure connection throughout the duration of this visit. Patient understands this is a therapy service and will be billed to her insurance. Patient consents that therapy or educational materials could be sent through [facility] or e-mail address at: [email or web address]. Lulú Oneil did not have any questions for me at this time and was informed the best way to reach me is through [facility]. Physical Therapy Daily Note Total treatment time: [...] later this week. O: Therex: Neuromuscular Re-Ed (41817) 25 min Self Care/Home Management (29215) 15 min Baseline: Headache 6/10, Dizziness 0/10, [...] - look at target, face target, alternate. [id number], vert x14s Peripheral visual mckeon Draw an [...] in visual field. beyond hand length ? prison goals By 01/10/2020 ? 11/29/2019 ? Patient [...] ? Mireya Bass, PT, PT, ITPT, DPT [facility] Outpatient Rehabilitation documented in this encounter Plan of Treatment Not on filedocumented as of this encounter Visit Diagnoses Diagnosis Postconcussional syndrome Postconcussion syndrome Nausea Nausea alone Dizziness and giddiness Visual discomfort, unspecified lateralit y Headache, chronic daily Headache documented in this encounter Care Teams Rn Supplemental Relationship Specialty Start Date End Date Ana Hendrix APRN PCP - General Geriatric Medicine 10/21/[address] [place] [address] documented as of this encounter
--- OUTSIDE RECORDS SUMMARY | 2022-02-19 03:58 | XMS_ITS | Encounter Summary ---
:1990 Author Organization [facility] Address [address] [place] [address] Care Team Providers Name Role Phone Ana Hendrix APRN Primary Care Provider Encounter Details Date Type Department Care Team Description 02/09/2020 Office Visit Occupational Therapy Juvenal Barker cussion without at [facility] G, OT loss of [facility] [place] [address] PHYSICAL MEDICINE [phone] & [place] [address] Social History Tobacco Use Types Packs/Day Years [...] TREATMENT TIME: 58 minutes; Therex: Neuromuscular Re-Ed (19444) 58 min OCCUPATIONAL PROFILE: PAST MEDICAL HISTORY: [...] client to read the sentences on the [employer] text card at a distance of 40cm/16 [...] telemedicine visits to progress toward short and fci goals for Cognitive retraining compensatory strategies Treatment to include use of: Therapeutic Exercise, Therapeutic Activities, Neuromuscular Re-education, Patient/Caregiver education with a compensatory and rehabilitative approach Material Attendant Goals (to be met by discharge): Date [...] Temperament and personality: Appropriate. Specific mental functions [place] Cognitive Assessment (MoCA) Results: Comments Visuospatial/Exec / [...] encounter documented in this encounter Care Teams Aadc Plans Staff Officer Relationship Specialty Start Date End Date Ana Hendrix APRN PCP - General Geriatric Medicine 10/21/[address] [place] [address] documented as of this encounter
--- OUTSIDE RECORDS SUMMARY | 2022-02-19 03:58 | XMS_ITS | Encounter Summary ---
:1990 Author Organization [facility] Address [address] [place] [address] Care Team Providers Name Role Phone Ana Hendrix APRN Primary Care Provider Encounter Details Date Type Department Care Team Description 02/11/2020 TH Visit Physical Therapy at Mireya Bass Post concussional syndrome; (TeleHealth) [facility] L, PT Nausea; [facility] Dizziness and giddiness; Drive Visual discomfort, unspecifi ed laterality; [place], [place] Headache, [place] [address] Social History Tobacco Use Types Packs/Day Years [...] Telemedicine Encounter Patient: Lulú Oneil MR Number: [id number] Date of : 1990 Home Address: [address] [place] [address] Phone Number (Home, Mobile): Date of Visit: 02/11/2020 Patient Location at time of visit: bedroom at home; Lulú Oneil is aware that I will need to confirm this location each time we meet. Others in the same physical location as the patient: entire family This therapist is legally able to treat the patient in [place] and [place] via Telehealth due to license waiver agreement during Covid 19 crisis. NOTE: Lulú Oneil has verbally consented to participate in a Telemedicine visit with Mireya Bass PT as her Rehabilitation Medicine provider while the [facility] Covid 19 crisis is taking place. This Telemedicine visit was comprised of both Audio and Visual through a secure connection throughout the duration of this visit. Patient understands this is a therapy service and will be billed to her insurance. Patient consents that therapy or educational materials could be sent through [facility] or e-mail address at: [email or web address] Lulú Oneil did not have any questions for me at this time and was informed the best way to reach me is through [facility]. Physical Therapy Daily Note Total treatment [...] 0/10, Fogginess 3/10 O: Therex: Neuromuscular Re-Ed (10537) 30 min Self Care/Home Management (85997) 10 min Self-care / home management ?? [...] 5 lines accurate with no exacerbation ?? ID tracking - Font Times 26 ?? 2 min 28s ?? Headache intensified, eyes fatigued ?? No errors * indicates elements added to home exercise program following instruction and practice in clinic A: Patient reports no further complication from recent hysterectomy. Patient reports not doing as much visual exercise due to worsening of migraines. Introduced ID tracking, patient able to complete without errors [...] in visual field. beyond hand length ? [facility] goals By 01/10/2020 ? 11/29/2019 ? Patient [...] ? Mireya Bass, PT, ITPT, DPT [facility] Outpatient Rehabilitation documented in this encounter Plan of Treatment Not on filedocumented as of this encounter Visit Diagnoses Diagnosis Postconcussional syndrome Postconcussion syndrome Nausea Nausea alone Dizziness and giddiness Visual discomfort, unspecified lateralit y Headache, chronic daily Headache documented in this encounter Care Teams [employer] Insights Lead Ads Marketing Relationship Specialty Start Date End Date Ana Hendrix APRN PCP - General Geriatric Medicine 10/21/19 [address] [place] [address] documented as of this encounter
--- OUTSIDE RECORDS SUMMARY | 2022-02-19 03:58 | XMS_ITS | Encounter Summary ---
:1990 Author Organization [facility] Address [address] [place] [address] Care Team Providers Name Role Phone Elsi Castro RICKY Primary Care Provider Encounter Details Date Type Department Care Team Description 09/25/2017 Hospital Encounter [place] [address] Social History Tobacco Use Types Packs/Day [...] Organization Address City/State/ZIP Code Phon e Number [place], [place] documented in this encounter Visit Diagnoses Not on filedocumented in this encounter Care Teams Floors Buffer Relationship Specialty Start Date End Date Elsi Castro APRN PCP - General Family Medicine 08/04/17 08/02/18 [address] [place] [address] documented as of this encounter
--- OUTSIDE RECORDS SUMMARY | 2022-02-19 03:58 | XMS_ITS | Encounter Summary ---
:1990 [place] [address] Care Team Providers Name Role Phone Elsi Castro RICKY Primary Care Provider Reason for Referral Consultation (Urgent) - Closed Specialty Diagnoses / Procedures Referred By Contact Refer red To Contact Urology Diagnoses right rachel ceron Andrew D, MD [facility] [place] [address] [place] [address] Referral ID Status Reason Start Date Expiration Date Visits V isits Requested Authorized [id number] Closed Consult, 10/18/2017 10/18/2018 1 1 Test & Treat Reason for Visit Reason Comments Flank Pain Encounter Details Date Type Department Care Team Description 10/18/2017 Emergency Emergency Department Bernardo Vazquez MD Flank pain [facility] [place] [address] [place] [address] [phone] (Wo rk) Social History Tobacco Use Types [...] this week and had 2 admissions to [facility] for same where urology was reportedly unable to intervene and she was told to present to [facility] for urology evaluation. She has had ongoing [...] a 27 y.o. female with~5 admissions to [facility] over the past 3 weeks initially for [...] they would talk to urology here at [facility] for any further ideas. She denies vomiting [...] mcL Appearance UA Hazy (A) Clear Spec [place] UA 1.026 1.002 - 1.030 Color UA [...] with recent history of multiple hospitalizations at [facility] first for pyelonephritis then for question of [...] these were not nearly enough. Here at [facility], her blood work was unremarkable as was [...] encounter Miscellaneous Notes ED Triage - Lin Verduzco RN - 10/18/2017 5:10 PM EDT Pt. Presents with uncontrolled R flank pain with 5 admissions to [facility] in the last 3 weeks with infected [...] Signature POC Glucose 83 65 - 199 [facility] mg/dL [facility] Comment: Supplemental ranges: <140 mg/dL before meals <180 mg/dL all other times of the day Specimen Anatomical Collection Method Collection Time Receive d Time (Source) Location / / Volume Laterality Blood specimen 10/18/2017 8:15 PM 018 8:15 (specimen) EDT PM EDT Bernardo Amaro MD POINT OF CARE TEST ORDERABLE S Performing Organization Address City/State/[place] [address] (ABNORMAL) Urinalysis Microscopic Exam (10/18/2017 8:11 PM EDT) Analysis Performed At Patho logist Time Signature RBC UA 59 (H) 0 - 4 /HPF [facility] WBC UA 4 0 - 5 /HPF [facility] Bacteria UA Rare (A) None /HPF [facility] Squam Epith UA 6 (H) <=4 /HPF [facility] Amorph Josie UA Rare (A) None /HPF [facility] Specimen (Source) Anatomical Collection Method Collection Time Re ceived Time Location / / Volume Laterality Urine specimen 10/18/2017 8:11 10/18/2017 8:29 obtained by clean PM EDT PM EDT catch procedure (specimen) Resulting Agency Comment Spec In Lab Rodrigo Parker MD URINE ORDERABLES Performing Organization Address City/State/[place] [address] (ABNORMAL) Urinalysis with reflex Culture (10/18/2017 8:11 PM EDT) Patholo gist Method Time Signature Glucose UA Negative Negative [facility]/dL [facility] Protein UA Negative Negative [facility] mg/dL [facility] Bilirubin UA Negative Negative [facility] mg/dL [facility] Comment: Clinical correlation required for positi ve Urine Bilirubin results as false positive may occur with some drugs and d rug related products. If a false positive is suspected a serum total bili betancur should be considered if clinically indicated. Urobilinogen UA Normal Normal mg/dL [facility] pH UA 7.0 5.0 - 8.0 [facility] Blood UA Small (A) Negative mg/dL [facility] Ketones UA Negative Negative mg/dL [facility] Nitrite UA Negative Negative [facility] Leukocytes UA Negative Negative [facility]ORATORY Appearance UA Hazy (A) Clear [facility] Spec [place] UA 1.026 1.002 - 1.030 [facility] Color UA Yellow Yellow [facility] Culture Reflexed No [facility] Specimen (Source) Anatomical Collection Method Collection Time Re ceived Time Location / / Volume Laterality Urine specimen 10/18/2017 8:11 10/18/2017 8:29 obtained by clean PM EDT PM EDT catch procedure (specimen) Resulting Agency Comment Spec In Lab Bernardo Amaro MD URINE ORDERABLES Performing Organization Address City/State/ZIP Code Phon e Number [address] Gold Tube HOLD (10/18/2017 6:33 PM EDT) P athologist Signature Gold Hold Sample in [facility] LABORATORY Specimen Anatomical Collection Method Collection Time Receive d Time (Source) Location / / Volume Laterality Blood specimen Venous Draw / 10/18/2017 6:33 PM 2017 6:40 (specimen) Unknown EDT PM EDT Rodrigo Parker MD CHEMISTRY ORDERABLES Performing Organization Address City/[facility]/ZIP Code Phon e Number [address] (ABNORMAL) Differential, Automated (10/18/2017 6:33 PM EDT) Patholo gist Method Time Signature Neutrophils % 47.7 % [facility] Neutr Abs (ANC) 4.02 1.70 - [facility] 6.10 [facility] x10(3)/[facility] LABORATORY Lymphocytes % 30.6 % [facility] Lymphocytes Abs 2.6 0.9 - 3.2 [facility] x10(3)/[facility] LABORATORY Monocytes % 12.5 % [facility] Monocyte Abs 1.0 (H) 0.3 - 0.9 [facility] x10(3)/[facility] LABORATORY Eosinophils % 7.5 % [facility] Eosinophils Abs 0.6 (H) 0.0 - 0.4 [facility] x10(3)/[facility] LABORATORY Basophils % 1.5 % [facility] Basophils Abs 0.1 0.0 - 0.1 [facility] x10(3)/[facility] LABORATORY Immature Gran % 0.20 % [facility] Comment: Immature granulocytes(IG's)percentage an d absolute count will include metamyelocytes, myelocytes, and promyelo cytes. Blood smears from CBCs yielding IG's will be scanned manually for concor dance. If this scan disagrees with the automated IG or if promyelocytes are not ed, a manual differential will be performed. Stephanie Gran Abs 0.02 0.00 - 0.04 x10(3)/[facility] LABOR[facility]ORY Specimen Anatomical Collection Method Collection Time Receive d Time (Source) Location / / Volume Laterality Blood specimen 10/18/2017 6:33 PM 018 6:40 (specimen) EDT PM EDT Resulting Agency Comment Spec In Lab Rodrigo Parker MD HEMATOLOGY ORDERABLES Performing Organization Address City/State/ZIP Code Phon e Number [address] Hemogram (10/18/2017 6:33 PM EDT) P athologist Signature WBC 8.4 4.0 - 9.5 [facility] x10(3)/[facility] LABORATORY RBC 4.42 4.00 - [facility] 5.21 [facility] x10(6)/[facility] LABORATORY Hemoglobin 13.6 11.7 - [facility] WHEELERSRINIV[facility] 15.5 gm/dL [facility] Hematocrit 39.5 35.7 - [facility] 45.8 % [facility] MCV 89.4 82.6 - [facility] 94.4 [facility] LABORATORY MCH 30.8 27.1 - [facility] WHEELERSRNIIVAS 32.0 pg [facility] MCHC 34.4 31.7 - [facility] SRINIV[facility] 35.0 gm/dL [facility] Platelets 278 145 - 357 [facility] x10(3)/[facility] LABORATORY RDWSD 39.6 37.0 - [facility] WHEELERSRINIVAS 46.0 [facility] LABORATORY RDWCV 12.1 11.5 - [facility] 14.1 % [facility] MPV 9.3 7.6 - 12.9 [facility] nRBC % Auto 0.0 % [facility] nRBC Abs Auto 0.000 0.000 - [facility] SR[facility]IV[facility] 0.000 [facility] x10(3)/[facility] LABORATORY Specimen Anatomical Collection Method Collection Time Receive d Time (Source) Location / / Volume Laterality Blood specimen 10/18/2017 6:33 PM 018 6:40 (specimen) EDT PM EDT Resulting Agency Comment Spec In Lab Rodrigo Parker MD HEMATOLOGY ORDERABLES Performing Organization Address City/State/[place] [address] (ABNORMAL) Hepatic Function Panel (10/18/2017 6:33 PM EDT) P athologist Signature Total Protein 7.7 6.1 - 8.0 [facility] SRINIV[facility] gm/dL [facility] Albumin 4.5 3.2 - 5.2 [facility] SRINIV[facility] gm/dL [facility] AST 37 (H) 0 - 30 [facility] SRINIVAS unit/L [facility] ALT 62 (H) 0 - 30 [facility] SRINIVAS unit/L [facility] Alk Phos 58 40 - 104 [facility] unit/L [facility] Total 0.5 0.2 - 1.3 [facility] Bilirubin mg/dL [facility] Bili, Direct 0.1 0.0 - 0.3 [facility] mg/dL [facility] Specimen Anatomical Collection Method Collection Time Receive d Time (Source) Location / / Volume Laterality Blood specimen 10/18/2017 6:33 PM 018 6:40 (specimen) EDT PM EDT Resulting Agency Comment Spec In Lab Bernardo Amaro MD CHEMISTRY ORDERABLES Performing Organization Address City/State/[place] [address] (ABNORMAL) Basic Metabolic Panel (non-fasting) (10/18/2017 6:33 PM EDT) P athologist Signature Glucose Lvl 59 (L) 65 - 199 [facility] mg/dL [facility] Comment: Diabetes: >=200 mg/dL plus symp toms BUN 16 8 - 18 mg/dL [facility] Creatinine 0.88 0.70 - 1.20 mg/dL [facility] Sodium 140 135 - 145 mmol/L [facility] Potassium 4.0 3.5 - 5.0 mmol/L [facility] Comment: Please note: ??Patients with WBC >100,00 0 may have falsely elevated Potassium levels. ??For accurate Potassium quantif ication in these patients send serum separator tube (gold top) for subsequent determinations. ??Contact the Clinical Chemistry Laboratory if there are any qu estions. Chloride 100 98 - 107 mmol/L [facility] CO2 29 22 - 31 mmol/L [facility] Anion Gap 11 5 - 15 mmol/L [facility] Calcium 9.4 8.5 - 10.5 mg/dL [facility] Estimated GFR >60 >=60 [facility] Comment: The reported eGFR should be multiplied b y 1.2 for patients. The MDRD is not an appropriate measure o f renal function for patients with body mass extremes or in patients with acute kidney failure. http://[employer]DHnkdep http://[employer]DHMCnkf Specimen Anatomical Collection Method Collection Time Receive d Time (Source) Location / / Volume Laterality Blood specimen 10/18/2017 6:33 PM 018 6:40 (specimen) EDT PM EDT Resulting Agency Comment Spec In Lab Bernardo Amaro MD CHEMISTRY ORDERABLES Performing Organization Address [facility] Code Phon e Number [place] [phone] Film Library- Storage Only CT Abdomen & Pelvis (10/13/2017 12:00 AM EDT) Specimen (Source) Anatomical Location Collection Method / Collectio n Time Received Time / Laterality Volume Narrative [facility] - 10/18/2017 10:22 PM EDT This result has an attachment that is no t available. This exam is for storage only and is aut o-finalizing. Bernardo Amaro MD [facility] FILM LIBRARY ORDERABLES Performing Organization Address [facility] Phon e Number [place], [place] Film Library- Storage Only Ultrasound Study (10/11/2017 12:00 AM EST) Specimen (Source) Anatomical Location Collection Method / Collectio n Time Received Time / Laterality Volume Narrative [facility] - 10/18/2017 10:22 PM EDT This result has an attachment that is no t available. This exam is for storage only and is aut o-finalizing. Bernardo Amaro MD [facility] FILM LIBRARY ORDERABLES Performing Organization Address [facility] Code Phon e Number [place], [place] Film Library- Storage Only DX GI Study (10/09/2017 12:00 AM EST) Specimen (Source) Anatomical Location Collection Method / Collectio n Time Received Time / Laterality Volume Narrative [facility] - 10/18/2017 10:21 PM EDT This result has an attachment that is no t available. This exam is for storage only and is aut o-finalizing. Bernardo Amaro MD [facility] FILM LIBRARY ORDERABLES Performing Organization Address [facility]/ZIP [facility] Phon e Number [place], [place] Film Library- Storage Only Ultrasound Study (09/26/2017 12:00 AM EST) Specimen (Source) Anatomical Location Collection Method / Collectio n Time Received Time / Laterality Volume Narrative [facility] - 10/18/2017 10:21 PM EDT This result has an attachment that is no t available. This exam is for storage only and is aut o-finalizing. Bernardo Amaro MD [facility] FILM LIBRARY ORDERABLES Performing Organization Address City/[facility] Phon e Number [place], [place] Film Library- Storage Only CT Abdomen & Pelvis (09/25/2017 12:00 AM EST) Specimen (Source) Anatomical Location Collection Method / Collectio n Time Received Time / Laterality Volume Narrative [facility] - 10/18/2017 10:20 PM EDT This result has an attachment that is no t available. This exam is for storage only and is aut o-finalizing. Bernardo Amaro MD [facility] FILM LIBRARY ORDERABLES Performing Organization Address [facility] Phon e Number [place], [place] documented in this encounter Visit Diagnoses [...] 1835 documented in this encounter Care Teams Manager Process Relationship Specialty Start Date End Date Esli Castro APRN PCP - General Family Medicine 08/04/17 08/02/[address] [place] [address] documented as of this encounter
--- OUTSIDE RECORDS SUMMARY | 2022-02-19 03:58 | XMS_ITS | Encounter Summary ---
:1990 Author Organization [facility] Address [facility] [place] [address] Care Team Providers Name Role Phone Ana Hendrix APRN Primary Care Provider Encounter Details Date Type Department Care Team Description 01/26/2020 TH Visit Physical Therapy at [facility] Post concussional syndrome; (TeleHealth) [facility], PT Nausea; [facility] Dizziness and giddiness; Drive Visual discomfort, unspecifi ed laterality; [place], [place] Headache, [place] daily [id number] Social History Tobacco Use Types Packs/Day Years Used Date Never Smoker Smokeless Tobacco: Never Used Alcohol Use Standard Drinks/Week Comments Yes 0 (1 standard drink = 0.6 oz pure alcoho l) Maybe one mixed drink a month Sex Assigned at Date Recorded Not on file documented as of this encounter Miscellaneous Notes Treatment - Therapy - Mireya Bass, PT - 01/26/2020 8:00 AM EDT Rehabilitation Medicine - Telemedicine Encounter Patient: Lulú Oneil MR Number: [id number] Date of : 1990 Home Address: [address] [place] [id number] Phone Number (Home, Mobile): Date of Visit: 01/26/2020 Patient Location at time of visit: bedroom at home; Lulú Oneil is aware that I will need to confirm this location each time we meet. Others in the same physical location as the patient: entire family This therapist is legally able to treat the patient in [place] and [place] via Telehealth due to license waiver agreement during Covid 19 crisis. NOTE: Lulú Oneil has verbally consented to participate in a Telemedicine visit with Mireya Bass PT as her Rehabilitation Medicine provider while the [facility] Covid 19 crisis is taking place. This Telemedicine visit was comprised of both Audio and Visual through a secure connection throughout the duration of this visit. Patient understands this is a therapy service and will be billed to her insurance. Patient consents that therapy or educational materials could be sent through [facility] or e-mail address at: [email or web address]. Lulú Oneil did not have any questions for me at this time and was informed the best way to reach me is through [facility]. Physical Therapy Daily Note Total treatment time: 40 minutes Total timed code treatment: 40 minutes Current Medicare Cert Period 11/29/2019 - 02/26/2020 Follow up visit for patient with ICD-10-CM 1. Postconcussional syndrome F07.81 2. Nausea R11.0 3. Dizziness and giddiness R42 4. Visual discomfort, unspecified laterality H53.149 5. Headache, chronic daily R51 S: Patient reports hysterectomy abscess and infection, followed by vaginal and oral yeast infections. No further surgery required, finished antibiotics last night. Patient is not adhering to HEP. Patient reports that dizziness and nausea are improving, with nausea on a 90 min car ride. Baseline: Headache 6/10, Dizziness 3/10, Nausea 3/10, Fogginess 4/10 O: Therex: Neuromuscular Re-Ed (06238) 30 min Self Care/Home Management (34275) 10 min Self-care / home management ?? HPI: complications with hysterectomy, concussion symptoms with travel ?? pec stretch with B hands clasped behind back, pulling shoulders down and back 3x30s ?? Relieve tension in neck and shoulders: Stretching shoulders, rolling shoulders, rolling head ?? Skilled discussion for probiotic to rebuild gut bacteria Neuromuscular Re-ed 30 min ?? Gaze stabilization, seated unsupported, quiet background ?? Week 3 head movement ex 1: target on wall 6-10 feet, 60s ea horiz/vert ?? Week 3 head movement ex 2: target stick at arm length, 60s ea horiz/vert ?? *Week 3 head movement ex 3: checkerboard with single letter ?? Unable to trial in session, handout to be delivered to patient ?? Build tolerance for gazing at R, once that improves to 30s, begin head rotation horiz/vert ?? Week 3 head movement ex 4: head/eye coordination - look at target, face target, alternate, standing. Horiz x60s, vert x60s ?? *Week 3 head movement ex 5: eye chart taped to wall, seated, quiet background. Focus on target letter, close eyes, move head, open eyes, correct to target prn. Repeat, varying magnitude, direction, and speed of head turn ?? 3 ea R/L/flex/ext, trialed with lettered sign in room ?? Difficulty coordinating motion with L rotation, extension ?? Skilled discussion for working up to 60s, concentrating on L rotation and extension ?? Skilled discussion ?? Patient is in clinic for OT evaluation and would prefer to poultry picker hand outs at that time, this therapist to leave envelope at desk for patient ?? Patient will be provided handouts for more advanced exercises as well including: complex checkerboard, Kayden string, Long chart near/far, [employer] card, CT tracking * indicates elements added to home exercise program following instruction and practice in clinic A: Patient reports having had further complications resulting from hysterectomy on 12/21. Patient reports that she hasn't been doing visual exercises as much due to those complications. Patient has completed antibiotic and is taking probiotic to manage n/d. Progressed gaze stabilization, handouts to bepicked up by patient tomorrow. Patient has improved slightly as demonstrated by increased tolerance f or car rides. Patient quickly grew nauseous with eye chart, symptoms decreased but did not return tobaseline with focal point strategy. Session completed with skilled discussion for handouts to be provided. P: Progress gaze stabilization. Long chart. Reinforce [...] in visual field. beyond hand length ? ad terminal makeup operator goals By 01/10/2020 ? 11/29/2019 ? [...] ? Mireya Bass, PT, PT, ITPT, DPT [facility] Outpatient Rehabilitation documented in this encounter Plan of Treatment Not on filedocumented as of this encounter Visit Diagnoses Diagnosis Postconcussional syndrome Postconcussion syndrome Nausea Nausea alone Dizziness and giddiness Visual discomfort, unspecified lateralit y Headache, chronic daily Headache documented in this encounter Care Teams Mender Hand Relationship Specialty Start Date End Date Ana Hendrix APRN PCP - General Geriatric Medicine 10/21/[address] [place] [address] documented as of this encounter
--- OUTSIDE RECORDS SUMMARY | 2022-02-19 03:58 | XMS_ITS | Encounter Summary ---
:1990 Author Organization [facility] Address [place] [address] Care Team Providers Name Role Phone Ana Hendrix APRN Primary Care Provider Encounter Details Date Type Department Care Team Description 01/03/2020 TH Visit Physical Therapy at [facility] Post concussional syndrome; (TeleHealth) [facility], PT Nausea; [facility] Dizziness and giddiness; Drive Visual discomfort, unspecifi ed laterality; [place], [place] Headache, chron ic daily [id number] Social History Tobacco Use Types Packs/Day Years [...] Telemedicine Encounter Patient: Lulú Oneil MR Number: [id number] Date of : 1990 Home [address]: [address] [place] [id number] Phone Number (Home, Mobile): Date of Visit: 01/03/2020 Patient Location at time of visit: bedroom at home; Lulú Oneil is aware that I will need to confirm this location each time we meet. Others in the same physical location as the patient: entire family This therapist is legally able to treat the patient in [place] and [place] via Telehealth due to license waiver agreement during Covid 19 crisis. NOTE: Lulú Oneil has verbally consented to participate in a Telemedicine visit with [facility] Bass PT as her Rehabilitation Medicine provider while the [facility] Covid 19 crisis is taking place. This Telemedicine visit was comprised of both Audio and Visual through a secure connection throughout the duration of this visit. Patient understands this is a therapy service and will be billed to her insurance. Patient consents that therapy or educational materials could be sent through [facility] or e-mail address at: [email or web address]. Lulú Oneil did not have any questions for me at this time and was informed the best way to reach me is through [facility]. Physical Therapy Daily Note Total treatment [...] 4/10, Fogginess 4/10 O: Therex: Neuromuscular Re-Ed (61916) 20 min Self Care/Home Management (91980) 10 min Self-care / home management ?? [...] in visual field. beyond hand length ? FPC goals By 01/10/2020 ? 11/29/2019 ? Patient [...] ? Mireya Bass, PT, PT, ITPT, DPT [facility] Outpatient Rehabilitation documented in this encounter Plan of Treatment Not on filedocumented as of this encounter Visit Diagnoses Diagnosis Postconcussional syndrome Postconcussion syndrome Nausea Nausea alone Dizziness and giddiness Visual discomfort, unspecified lateralit y Headache, chronic daily Headache documented in this encounter Care Teams Brilliandeer Lopper Relationship Specialty Start Date End Date Ana Hendrix APRN PCP - General Geriatric Medicine 10/21/[address] [place] [address] documented as of this encounter
--- OUTSIDE RECORDS SUMMARY | 2022-02-19 03:58 | XMS_ITS | Encounter Summary ---
:1990 Author Organization [facility] Address [address] [place] [address] Care Team Providers Name Role Phone Elsi Castro RICKY Primary Care Provider Encounter Details Date Type Department Care Team Description 10/11/2017 Hospital Encounter Radiology Library [facility] [place] [phone] Social History Tobacco Use Types Packs/Day [...] Associated Comments Diagnosis FILM LIBRARY STORAGE STAT 10/11/2017 12:00 AM Results for this ONLY ULTRASOUND EST procedure ar e in STUDY the results section. documented in this encounter Results Film Library- Storage Only Ultrasound Study (10/11/2017 [...] Address City/State/ZIP Code Phon e Number RAD [place], [place] documented in this encounter Visit Diagnoses Not on filedocumented in this encounter Care Teams Strawhat Blocking Operator Relationship Specialty Start Date End Date Elsi Castro APRN PCP - General Family Medicine 08/04/17 08/02/18 [address] [place] [address] documented as of this encounter
--- OUTSIDE RECORDS SUMMARY | 2022-02-19 03:58 | XMS_ITS | Encounter Summary ---
:1990 Author Organization [facility] [place] [address] Care Team Providers Name Role Phone Ana Hendrix APRN Primary Care Provider Reason for Visit Occupational Therapy (Routine) - Closed Specialty Diagnoses / Procedures Referred By Contact Refer red To Contact Occupational Therapy Diagnoses -POST CONCUSSIVE SYNDROME Ana Hendrix Morneau, Gregory G, APRN OT [address] [place] [address] PHYSICAL MEDICINE & REHABILITAT [place], [place] [address] Referral ID Status Reason Start Date Expiration Date Visits V isits Requested Authorized [id number] Closed Consult, Test 01/05/2020 01/04/2021 [facility] PCP Updated and/or Approved Encounter Details Date Type Department Care Team Description 01/27/2020 Office Visit Occupational Therapy Juvenal Barker cussion without at [facility] G OT loss of [facility] [address] [place] [address] PHYSICAL MEDICINE [phone] & [place] [address] Social History Tobacco Use Types Packs/Day Years [...] TREATMENT TIME: 58 minutes; Evaluation HIGH Complexity (69619) CLINICAL DECISION MAKING of high complexity evaluation [...] independent with modifications independent with paratransit requires 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 She [...] Temperament and personality: Appropriate. 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
--- OUTSIDE RECORDS SUMMARY | 2022-02-19 03:58 | XMS_ITS | Encounter Summary ---
:1990 Author Organization [facility] Address [address] [place] [address] Care Team Providers Name Role Phone Ana Hendrix APRN Primary Care Provider Encounter Details Date Type Department Care Team Description 03/02/2020 TH Visit Physical Therapy at [facility] Post concussional syndrome; (TeleHealth) [facility], PT Nausea; [facility] Dizziness and giddiness; Drive Visual discomfort, unspecifi ed laterality; [place], [place] Headache, [place] [id number] Social History Tobacco Use Types Packs/Day Years Used Date Never Smoker Smokeless Tobacco: Never Used Alcohol Use Standard Drinks/Week Comments Yes 0 (1 standard drink = 0.6 oz pure alcoho l) Maybe one mixed drink a month Sex Assigned at Date Recorded Not on file documented as of this encounter Miscellaneous Notes Treatment - Therapy - M[facility]ya Bass, PT - 03/02/2020 3:30 PM EDT Rehabilitation Medicine - Telemedicine Encounter Patient: Lulú Oneil MR Number: [id number] Date of : 1990 Home [address]: [address] [place] [id number] Phone Number (Home, Mobile): Date of Visit: 03/02/2020 Patient Location at time of visit: at home in kids room; Lulú Oneil is aware that I will need to confirm this location each time we meet. Others in the same physical location as the patient: home alone This therapist is legally able to treat the patient in [place] and [place] via Telehealth due to license waiver agreement during Covid 19 crisis. NOTE: Lulú Oneil has verbally consented to participate in a Telemedicine visit with Mireya Bass PT as her Rehabilitation Medicine provider while the [facility] Covid 19 crisis is taking place. This Telemedicine visit was comprised of both Audio and Visual through a secure connection throughout the duration of this visit. Patient understands this is a therapy service and will be billed to her insurance. Patient consents that therapy or educational materials could be sent through [facility] or e-mail address at: [email or web address]. Lulú Oneil did not have any questions [...] 5. Headache, chronic daily R51 S: I have to take the prn medication every day, every 4-5 hours. I feel like I'm doing better, but I'm not timing the exercises as much 5/10 headache O: Therex: Neuromuscular Re-Ed (62206) 25 min Self Care/Home Management (25342) 20 min Self-care / home management ?? Skilled discussion for not performing double the amount of exercises prescribed by both OT and PT ?? Decreasing exercises and goal times, providing self-verbal cues to improve coordination ?? Importance of managing stressors, such as around schooling for children, managing headaches, organizing household ?? diaphragmatic breathing x4 ?? Verbal cues for 4s inhale/exhale Neuromuscular Re-ed 25 min ?? Gaze stabilization, seated unsupported, quiet background ?? Week 3 head movement ex 1: target on wall 6-10 feet ?? horiz ?? 23 turns, 23.8s ?? 23 turns, 22s ?? Roosevelt harder, my eyes felt tired ?? Independent use of focal point strategy for symptom management ?? Vertical - 8 head turns ?? 19 in 20 seconds with self-verbal cue of counting ?? Week 3 head movement ex 2: target stick at arm length ?? horiz ?? 35 turns, 30s ?? 28 turns, 21.57s ?? Week 3 head movement ex 4: head/eye coordination - look at target, face target, alternate, standing. ?? Horiz ?? 9 turns 19.8s ?? 7 turns, 20s ?? 4 turns, 12.2 ?? Skilled discussion for adjusting HEP ?? ceasing checkerboard and eye chart exercises until VORx1 and head/eye coordination are tolerable for a 1 minute interval ?? Decreasing goal intervals to 30s, stopping if symptoms are provoked ?? Attempting 1 min of Long chart and/or NM tracking on days when headache isn't as bad * indicates elements added to home exercise program following instruction and practice in clinic A: Patient reports that migraines seem to be improving, but is now taking prn medication more frequently at a lower dose. Patient able to complete all gaze stabilization exercises during this session and is independent with taking breaks to manage symptoms. Patient able to achieve 35 head turns in 30swith horizontal head movement. P: Progress gaze stabilization. Long chart. Reinforce [...] in visual field. beyond hand length ? halfway goals By 01/10/2020 ? 11/29/2019 ? Patient [...] activity ? Mireya Bass, PT, ITPT, DPT [facility] Outpatient Rehabilitation documented in this encounter Plan of Treatment Not on filedocumented as of this encounter Visit Diagnoses Diagnosis Postconcussional syndrome Postconcussion syndrome Nausea Nausea alone Dizziness and giddiness Visual discomfort, unspecified lateralit y Headache, chronic daily Headache documented in this encounter Care Teams Scheduling Coordinator Relationship Specialty Start Date End Date Ana Hendrix APRN PCP - General Geriatric Medicine 10/21/[address] [place] [address] documented as of this encounter
[2022-02-19 04:00] VITALS: BP 128/71; PULSE 73; RESP 14; TEMP 36.5; O2SAT 98
--- NOTE | 2022-02-19 04:23 | ED.GENADUL_ITS ---
Discharge Plan Disposition Patient Disposition: HOME Condition: Good Discharge Details Clinical Impression: Pelvic pain Primary Care Provider: Ana Hendrix ED Provider: Lex Croft Home Meds and New Rx's Prescriptions: Continued memantine 10 mg tablet 10 mg PO BID Qty: 180 3RF zonisamide 100 mg capsule 200 mg PO HS Qty: 180 3RF Botox 100 unit recon soln 155 unit IM ONCE Rx Instructions: q 90 days by ENT cgc hydroxyzine HCl 10 mg tablet See Rx Instructions PO QHS PRN (Reason: insomnia and/or itching) Qty: 180 3RF Rx Instructions: 10-20mg PO every day at bedtime PRN; rizatriptan 5 mg tablet 5 mg PO ONCE PRN (Reason: migraine headache) Qty: 12 11RF Rx Instructions: May repeat dose x1 after 2 hours if first dose ineffective duloxetine [Cymbalta] 30 mg capsule,delayed release(DR/EC) 30 mg PO DAILY epinephrine 0.3 mg/0.3 mL auto-injector See Rx Instructions .ROUTE .COMPLEX Qty: 2 1RF Dose Instruction: INJECT 0.3 ML INTO THE MUSCLE NEEDED FOR BEE VENOM Rx Instructions: INJECT 0.3 ML INTO THE MUSCLE NEEDED FOR BEE VENOM prochlorperazine maleate 5 mg tablet 5 - 10 mg PO TID PRN (Reason: headaches) Qty: 30 0RF Rx Instructions: Take 1-2 tabs every 8 hours as needed for headaches. ondansetron HCl 4 mg tablet 4 mg PO Q6H PRN (Reason: nausea and vomiting) Qty: 10 0RF oxycodone 10 mg tablet 10 mg PO BID PRN (Reason: severe pain) Qty: 10 0RF Discharge Instructions Instructions: Pelvic Pain (ED) Additional Instructions: At this time your symptoms appear consistent with your pelvic congestion pain. Please follow-up with your surgeon tomorrow for your scheduled surgery. Take your home pain medications as needed. If you notice any worsening of your symptoms, or any new symptoms such as vomiting, diarrhea, fever, chills, shortness of breath, chest pain, numbness, weakness, or fainting , please return immediately to the emergency department for reevaluation. Please follow up with your primary care provider as soon as possible for reassessment and reevaluation. As always, it was a pleasure participating in your medical care today. Referrals: Ana Hendrix, CLINICAL RESEARCH COORDINATOR [Primary Care Provider] - Medical Decision Making This is a 31-year-old female with a past medical history of pelvic congestion syndrome, subsequent hysterectomy bilateral salpingectomy, with planned right-sided oophorectomy scheduled?for surgery tomorrow. She was seen and assessed here in the emergency department 4 days ago on 02/15/2022. At that time she had reemergence of her chronic pain, a ultrasound was performed, there is no evidence of acute appendicitis, ovarian torsion or large cyst. She was discharged home with NSAIDs, narcotics and expectant surgery this week. At her preop visit yesterday during the abdominal exam she developed notable pain in the right pelvic region again. She states that she has had continued pain since then, and has been unmanaged with [place], and NSAIDs. She presents today via EMS for reassessment here in the ED. She denies any vaginal discharge, urinary complaints or vomiting. She states that the pain is to the point where she cannot wear pants or anything that demonstrates any tightness on her abdomen. She felt all the bumps while driving in here tonight. No other complaints at this time. No other modifying factors. Exam demonstrates mild tenderness on palpation. Mild right-sided lower quadrant tenderness. Consistent with prior exams, including a prior time when she had the negative ultrasonography. Physical exam a differential is clinically consistent with pelvic congestion syndrome at this time. No evidence of an acute surgical abdomen. I did reach out to Dr. Nguyen, and she recommends potential/continued pain management until her operative date tomorrow. We will get basic labs and urinalysis to make sure there is no significant changes, treat the patient's pain and reassess. 6:26 AM On reassessment patient is feeling much better. She feels well and would like to go home. Patient will be discharged with close follow-up with OB tomorrow at her scheduled surgical appointment. Repeat exam shows no signs of an acute surgical abdomen. I have extensively reviewed the treatment plan and discharge instructions with the patient. I have addressed all patient concerns at this time. The patient was made aware of what symptoms to monitor for that would warrant a return to the emergency department. Discussed the plan with the patient, they demonstrate verbal understanding and agreement with our assessment and plan at this time. The documentation in this chart was dictated using [employer] dictation software. Please excuse any dictation errors. HPI General Date/Time Provider Initiated Documentation: 02/19/22 04:03 . HPI Narrative: This is a 31-year-old female with a past medical history of pelvic congestion syndrome, subsequent hysterectomy bilateral salpingectomy, with planned right-sided oophorectomy scheduled?for surgery tomorrow. She was seen and assessed here in the emergency department 4 days ago on 02/15/2022. At that time she had reemergence of her chronic pain, a ultrasound was performed, there is no evidence of acute appendicitis, ovarian torsion or large cyst. She was discharged home with NSAIDs, narcotics and expectant surgery this week. At her preop visit yesterday during the abdominal exam she developed notable pain in the right pelvic region again. She states that she has had continued pain since then, and has been unmanaged with [place], and NSAIDs. She presents today via EMS for reassessment here in the ED. She denies any vaginal discharge, urinary complaints or vomiting. She states that the pain is to the point where she cannot wear pants or anything that demonstrates any tightness on her abdomen. She felt all the bumps while driving in here tonight. No other complaints at this time. No other modifying factors. Related Data Home Medications Medication Instructions Recorded Confirmed onabotulinumtoxinA 100 unit 155 unit IM ONCE 02/19/21 02/19/22 solution for injection (Botox) hydroxyzine HCl 10 mg tablet See Rx Instructions PO QHS PRN 09/11/21 02/19/22 insomnia and/or itching #180 tabs rizatriptan 5 mg tablet 5 mg PO ONCE PRN migraine headache 09/11/21 02/19/22 #12 tab-caps memantine 10 mg tablet 10 mg PO BID #180 tabs 10/09/21 02/19/22 zonisamide 100 mg capsule 200 mg PO HS #180 caps 10/09/21 02/19/22 epinephrine 0.3 mg/0.3 mL See Rx Instructions .Route 01/20/22 02/19/22 injection, auto-injector .COMPLEX #2 ea prochlorperazine maleate 5 mg 5 - 10 mg PO TID PRN headaches #30 01/30/22 tablet tabs ondansetron HCl 4 mg tablet 4 mg PO Q6H PRN nausea and 02/12/22 02/19/22 vomiting #10 tabs oxycodone 10 mg tablet 10 mg PO BID PRN severe pain #10 02/15/22 02/19/22 tabs duloxetine 30 mg capsule,delayed 30 mg PO DAILY 02/18/22 02/19/22 release (Cymbalta) Previous Rx's Medication Instructions Recorded hydroxyzine HCl 10 mg tablet See Rx Instructions PO QHS PRN 09/11/21 insomnia and/or itching #180 tabs rizatriptan 5 mg tablet 5 mg PO ONCE PRN migraine headache 09/11/21 #12 tab-caps memantine 10 mg tablet 10 mg PO BID #180 tabs 10/09/21 zonisamide 100 mg capsule 200 mg PO HS #180 caps 10/09/21 epinephrine 0.3 mg/0.3 mL See Rx Instructions .Route 01/20/22 injection, auto-injector .COMPLEX #2 ea prochlorperazine maleate 5 mg 5 - 10 mg PO TID PRN headaches #30 01/30/22 tablet tabs ondansetron HCl 4 mg tablet 4 mg PO Q6H PRN nausea and 02/12/22 vomiting #10 tabs oxycodone 10 mg tablet 10 mg PO BID PRN severe pain #10 02/15/22 tabs Allergies Allergy/AdvReac Type Severity Reaction Status Date / Time bee venom protein (honey bee) Allergy Severe Verified 02/19/22 04:02 General Stated 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: 3 Review of Systems All systems reviewed & are unremarkable except as noted in HPI and below PFSH All Active Problems (Updated 02/19/22 @ 05:57 by Lex Croft DO) Preoperative exam for gynecologic surgery (Acute) Pelvic pain (Acute) Pelvic pain (Acute) Constipation (Acute) Adjustment disorder with depressed mood (Acute) Chronic nonintractable headache (Acute) 08/21/20 Therapeutic Botox-[place] 04/13/21-Trigger Point Injection-[facility] Chronic daily headache (Acute) PTSD (post-traumatic stress disorder) (Chronic) Post concussive syndrome (Acute) Anxiety (Chronic) With depressive components in Winter PTSD components Migraine (Acute) Medical History Abnormal cervical Papanicolaou smear 2011, 02/22/15 nml neg HPV Acute sialoadenitis Adnexal cyst Allergic rhinitis Dizziness Nephrolithiasis R Pelvic pain resolved s/p RYAN Recurrent urinary tract infection (01/23/18) RX Macrobid; [facility] Surgical History History of hemorrhoidectomy (~2012) Hx of cystoscopy S/P hysterectomy (~12/22/19) with bilateral Salpingoectomy Family History Father Substance abuse opiate Other Chronic daily headache Social History Smoking/Tobacco Use Status: Never Smoking risk assessment performed?: Yes Alcohol Intake: current Alcohol Intake frequency: a few times a month Alcohol type: beer Drug use: Never Substance use type: does not use Adopted: No Caregiver/Support person: No Foster care: No Household members: family Housing: house Number of Children: 4 Communication Needs: Corrective Lenses Education Level: college Do you need help understanding health information?: Rarely 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; 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 Pets and animals: Yes Pets and animals: cat(s), dog(s) and farm animals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 Do you think of yourself as: straight/heterosexual Current gender identity: female What is your relationship status?: living with partner How often do you talk on the phone with friends or family?: three or more times per week How often do you get together with friends or relatives?: once per week Do you belong to any clubs or organized social groups?: no Panel score (0-1 are the most socially isolated patients): 2 What type of physical activity do you participate in: none Duration: 15-30 minutes/day Frequency: 1-2 times per week Leah/Cheondoism: Amish Special leah needs: No Seatbelt use: always Drive intox or ride w/intox driver wheelchair: No Working smoke detector in home: Yes Fire extinguisher in home: Yes Carbon monox detector in home: Yes Do you feel safe at home: Yes Do you feel safe in your relationship?: Yes Female Reproductive History Menstrual Age of Menarche: 13 control method: permanent sterilization Menopause type: surgical History History 2 Para 2 Hx # Term Pregnancies Multiple births Hx # Pregnancies Ectopic pregnancies AB induced Hx Number of Living Children AB spontaneous Exam Narrative Exam Narrative: 1.Const: Well-nourished, Well-developed, appearing stated age 2.Eyes: PERRL, no conjunctival injection, and symmetrical lids. 3.ENT: Atraumatic external nose and ears. Moist MM. Neck: Symmetric, trachea midline, No thyromegaly. 4.CVS: +S1/S2, No murmurs or gallops. Peripheral pulses 2+ and equal in all extremities. Brisk capillary refill in all extremities. 5.RESP: Unlabored respiratory effort. Clear to auscultation bilaterally. No wheezes rales or rhonchi 6.GI: Soft, nondistended, negative [place] sign. Mild pain in the right lower quadrant, consistent with previous exams. No significant left-sided pain. No CVA tenderness. Mild pelvic achiness with palpation. 7.MSK: Normocephalic/Atraumatic, Extremities w/o deformity or ttp No cyanosis or clubbing, Normal movement of all extremities 8.Skin: Warm, Dry. No rashes or lesions. 9.Neuro: edge cutter II-XII grossly intact. Sensation grossly intact, no focal neurologic deficits. 10.Psych: (AAO) x3. Appropriate mood and affect Course Vital Signs Vital signs: Vital Signs Temperature 36.5 C 02/19/22 04:00 Pulse 73 02/19/22 04:00 Respiratory Rate 14 02/19/22 04:00 Blood Pressure 128/71 02/19/22 04:00 Pulse Oximetry 98 02/19/22 04:00 Temperature 36.5 C 02/19/22 04:00 Temperature Source Skin 02/19/22 04:00 Pulse 73 02/19/22 04:00 Respiratory Rate 14 02/19/22 04:00 Respiratory Effort Non-Labored 02/19/22 04:04 Blood Pressure 128/71 02/19/22 04:00 Blood Pressure Position Sitting 02/19/22 04:00 Pulse Oximetry 98 02/19/22 04:00 Oxygen Delivery Method Room Air 02/19/22 04:00 Oxygen Flow Rate 0 02/19/22 04:00 Pain Level 8 02/19/22 04:04 PAWSS Have you Been Recently Intoxicated or Drunk Within the Last 30 days?: No Have you Ever Experienced Previous Episodes of Alcohol Withdrawal?: No Have you ever Experienced Withdrawal Seizures?: No Have you ever Experienced Delirium Tremens(DT)s?: No Have you ever undergone Alcohol Rehabilitation Treatment (i.e, inpt ot outp atient treatment programs)?: No Have you ever Experienced Blackouts?: No Have you ever Combined Alcohol with other Downers within the last 90 days?: No Have you ever Combined Alcohol with any other Substance of Abuse during the last 90 days?: No Positive Blood Alcohol level on Presentation? [PCS.BAL]: No Evidence of Increased Autonomic Activity (i.e. HR>120, tremor, sweating, agitation, nausea)?: No Result: 0
[2022-02-19] MEDS: Normal Saline 1,000 ML 1000 ML IV (04:53)
[2022-02-19] MEDS: MORPHine 4 MG/ML SYR IVP ×2 (04:53→06:18)
[2022-02-19 04:55] LABS: Abs Immature Grans 0.02 10^3/uL (0.0-0.06); Absolute Basophil Count 0.13 10^3/uL (0.0-0.2); Absolute Eosinophil Count 0.68 10^3/uL (0.0-0.7); Absolute Monocyte Count 0.86 10^3/uL (0.1-0.8); Absolute Neutrophil Count 4.12 10^3/uL (1.2-6.7); Basophils % 1.6; Eosinophils % 8.5; HCT 41.5 % (36.0-46.0); Immature Grans % 0.2; Lymphocytes % 27.5; MCH 30.1 pg (27.0-33.0); MCHC 33.7 % (32.0-36.0); MCV 89 fL (80-95); MPV 9.3 fL (8.0-11.0); Monocytes % 10.7; Neutrophils % 51.5; Platelet Count 291 10^3/uL (130-400); RBC 4.65 10^6/uL (3.93-5.22); RDW 11.4 % (11.7-14.6); RDW-SD 36.7 fL; WBC 8.01 10^3/uL (4.4-10.8)
[2022-02-19 05:12] LABS: ALT 22 U/L (14-59); AST 16 U/L (15-37); Albumin 4.3 g/dL (3.4-5.0); Alkaline Phosphatase 58 U/L (46-116); Anion Gap 9.9 mmol/L (3-11); BUN 15 mg/dL (7-18); Bilirubin, Total 0.4 mg/dL (0.2-1.0); CO2 23.1 mmol/L (21.0-32.0); Chloride 105 mmol/L (98-107); Glucose 94 mg/dL (74-106); Sodium 138 mmol/L (136-145); Total Protein 7.8 g/dL (6.4-8.2)
[2022-02-19 06:22] VITALS: BP 109/61; PULSE 62; RESP 14; TEMP 36.8; O2SAT 96
== END 2022-02-19 06:45 | disposition home or self-care (01) ==
PROVIDERS: Emergency Provider Student in an Organized Health Care Education/Training Program; PCP Nurse Practitioner Adult Health
DX: R10.2 Pelvic and perineal pain (principal); R10.31 Right lower quadrant pain
CPT/HCPCS: 80053; 96361; 96374; 96376; 99284; 85025; 99283; J2270

== ENCOUNTER 2022-02-20 06:22 | Day surgery (SDC) | payer MEDICAID, SELFPAY ==
[2022-02-20] VITALS (10 sets, daily range): BP systolic 99–112; BP diastolic 47–73; PULSE 55–71; RESP 13–30; TEMP 36.2–36.7; O2SAT 12–100; BMI 27.7
--- NOTE | 2022-02-20 07:06 | ANES.PREOP_ITS ---
General Info Date of Service Date Performed: 02/20/22 Height: 5 ft 2 in Weight: 68.7 kg Body Mass Index (BMI): 27.7 Surgical Procedure: Operation Date: 02/20/22 07:40 Proposed Procedure Side Surgeon p Oophorectomy Laparoscopic Right Cate Nguyen MD Meds Allergies and Home Medications Allergies Allergy/AdvReac Type Severity Reaction Status Date / Time bee venom protein (honey bee) Allergy Severe Verified 02/20/22 06:38 Home Medication Medication Instructions Recorded onabotulinumtoxinA 100 unit 155 unit IM ONCE 02/19/21 solution for injection (Botox) hydroxyzine HCl 10 mg tablet See Rx Instructions PO QHS PRN 09/11/21 insomnia and/or itching #180 tabs rizatriptan 5 mg tablet 5 mg PO ONCE PRN migraine headache 09/11/21 #12 tab-caps zonisamide 100 mg capsule 200 mg PO HS #180 caps 10/09/21 epinephrine 0.3 mg/0.3 mL See Rx Instructions .Route 01/20/22 injection, auto-injector .COMPLEX #2 ea prochlorperazine maleate 5 mg 5 - 10 mg PO TID PRN headaches #30 01/30/22 tablet tabs ondansetron HCl 4 mg tablet 4 mg PO Q6H PRN nausea and 02/12/22 vomiting #10 tabs oxycodone 10 mg tablet 10 mg PO BID PRN severe pain #10 02/15/22 tabs duloxetine 30 mg capsule,delayed 30 mg PO HS 02/18/22 release (Cymbalta) hydromorphone 2 mg tablet 2 mg PO Q6H PRN pain #10 tabs 02/19/22 (Dilaudid) memantine 10 mg tablet 10 mg PO BID 02/20/22 Current Visit Medications: Current Medications Generic Name Dose Route Start Last Admin Trade Name Freq PRN Reason Stop Dose Admin Ringer's Solution 1,000 mls @ 125 mls/hr 02/20/22 06:00 IV 03/21/22 23:59 INFUSION ENZO IV Miscellaneous Supplies 1 each 02/20/22 06:00 Iv Access IV 03/21/22 23:59 DIRECTED ENZO Sodium Chloride 0 ml 02/20/22 06:00 Normal Saline Flush 10 Ml Syr IV 03/21/22 23:59 PRN PRN Sodium Chloride 0 ml 02/20/22 06:00 Normal Saline 10 Ml Vial IJ 03/21/22 23:59 DIRECTED PRN Sterile Water 0 ml 02/20/22 06:00 Water,Injection,Sterile 10 Ml Vial IJ 03/21/22 23:59 DIRECTED PRN PFSH Active Problems Active Problems: Problem Status Onset Code Preoperative exam for gynecologic surgery Z01.818 Pelvic pain R10.2 Pelvic pain R10.2 Constipation K59.00 Adjustment disorder with depressed mood F43.21 Chronic nonintractable headache R51.9, G89.29 Chronic daily headache R51 PTSD (post-traumatic stress disorder) F43.10 Post concussive syndrome F07.81 Anxiety F41.9 Migraine Medical History Medical History Abnormal cervical Papanicolaou smear 2011, 02/22/15 nml neg HPV Acute sialoadenitis Adnexal cyst Allergic rhinitis Dizziness Nephrolithiasis R Pelvic pain resolved s/p RYAN Recurrent urinary tract infection (01/23/18) RX Macrobid; [facility] Surgical History Surgical History History of hemorrhoidectomy (~2012) Hx of cystoscopy S/P hysterectomy (~12/22/19) with bilateral Salpingoectomy Tobacco Smoking/Tobacco Use Status: Never Passive smoking exposure: No Alcohol Alcohol Intake: current Alcohol intake frequency: a few times a month Alcohol type: beer Substance Use Substance use: Never Substance use type: does not use Prental History History 2 Para 2 Hx # Term Pregnancies Multiple births Hx # Pregnancies Ectopic pregnancies AB induced Hx Number of Living Children AB spontaneous Vital Signs and Lab Results Vital Signs Most Recent Vital Signs in EMR: Most Recent Vital Signs Temp Pulse Resp BP Pulse Ox 36.7 C 69 18 112/73 100 02/20/22 06:33 02/20/22 06:33 02/20/22 06:33 02/20/22 06:33 02/20/22 06:33 Lab Results Blood Type / Crossmatch: No Data to Display Complete Blood Count: White Blood Count 8.01 10^3/uL (4.4-10.8) 02/19/22 04:53 Red Blood Count 4.65 10^6/uL (3.93-5.22) 02/19/22 04:53 Hemoglobin 14.0 g/dL (11.2-15.7) 02/19/22 04:53 Hematocrit 41.5 % (36.0-46.0) 02/19/22 04:53 Platelet Count 291 10^3/uL (130-400) 02/19/22 04:53 Complete Metabolic Panel: Sodium Level 138 mmol/L (136-145) 02/19/22 04:53 Potassium Level 4.0 mmol/L (3.5-5.1) 02/19/22 04:53 Chloride Level 105 mmol/L (98-107) 02/19/22 04:53 Carbon Dioxide Level 23.1 mmol/L (21.0-32.0) 02/19/22 04:53 Blood Urea Nitrogen 15 mg/dL (7-18) 02/19/22 04:53 Creatinine 1.0 mg/dL (0.55-1.02) 02/19/22 04:53 Estimated GFR/1.73 m2 >= 60.00 (mL/min/1.73m2) 02/19/22 04:53 Calcium Level 9.0 mg/dL (8.5-10.1) 02/19/22 04:53 Albumin 4.3 g/dL (3.4-5.0) 02/19/22 04:53 Glucose Level 94 mg/dL (74-106) 02/19/22 04:53 Liver Function Panel: Alanine Aminotransferase (ALT/SGPT) 22 U/L (14-59) 02/19/22 04: 53 Aspartate Amino Transf (AST/SGOT) 16 U/L (15-37) 02/19/22 04:53 Coagulation Panel: No Data to Display Cardiac Panel: No Data to Display Arterial Blood Gas: No Data to Display Venous Blood Gas: No Data to Display Pancreas Panel: No Data to Display Thyroid Panel: No Data to Display Infectious Disease: Coronavirus (COVID-19)(PCR) Negative (Negative) 02/18/22 13:45 Coronavirus 2019 Source Nasal/Nares 02/18/22 13:45 Blood Cultures: No Data to Display Toxicology Panel: No Data to Display Panel: No Data to Display Anesthesia Assessment and Plan Anesthesia History Personal History: No History of Anesthesia Complications Family History: Family History Unknown Exercise Tolerance Exercise Tolerance: Metabolic Equivalents>4 Pertinent Negatives Pertinent Negatives: No Symptoms of GERD, No Major Cardiovascular Symptoms or Complaints, No Major Pulmonary Symptoms or Complaints and No History of CVA/TIA Cardiac & Pulmonary Exam Cardiac Exam: Normal S1/S2 Heart Sounds Pulmonary Exam: Clear Bilateral Breath Sounds Implantable Cardiac Device Does patient have a Pacemaker or an ICD?: No Airway Exam Known Difficult Airway: No Mallampati Class: 3 Mouth Opening: Normal (> 3cm) Thyromental Distance: Greater than 3 cm Neck Range of Motion: Full ROM Neck Circumference: Normal Teeth Condition: Normal Dentition ASA Classification ASA Score: ASA 1 Emergency Case?: No NPO Status NPO Status: NPO Clears >2 hours, Solids >8 hours Status Status: Not Relevant due to Medical History, Not Per Patient and History of Hysterectomy Anesthesia Plan Resuscitation Status: Full Code Anesthesia Technique: General Anesthesia Airway Planned: Endotracheal Tube Monitors Used: Standard Monitors
[2022-02-20] MEDS: Lactated Ringers 1,000 ML 125 ML IV (07:12)
[2022-02-20] MEDS: Bupivacaine 0.25% Pres-Free 30 ML VIAL (07:55)
--- NOTE | 2022-02-20 08:09 | OVAR_PTH ---
PATIENT: Lulú Oneil LOC: [facility] U#:[id number] AGE/SX: 31/F ROOM: RE02/20/[address]: Cate Nguyen : 1990 BED: DIS: 02/20/2022 SPEC #: [id number] RECD: 02/20/22 12:53 STATUS: MYRANDA REQ #: [id number] LUBNA: 02/20/22 08:[address]: Cate Nguyen DEPT: Surgical Specimen RECD BY: Margie Booth ENTERED: 02/20/22 12:54 SP TYPE: HUGO ROBBINS DR: Ana Hendrix APRN Tissues: 1 - OVARY NOT TUMOR W OR W/O TUBES Procedures: GROSS AND MICRO LEVEL 4 Comments: [id number]
--- NOTE | 2022-02-20 08:23 | W.PM.OP ---
Date of service: 02/20/22 Time of Service: 08:23 Operative Note Operative Note DATE OF PROCEDURE: 02/20/22 PRE-OP DIAGNOSIS: chronic RLQ pain POST-OP DIAGNOSIS: same PROCEDURE: laparoscopic right oophorectomy SURGEON: Cate Nguyen ASSISTING SURGEON: Mary Eason Refer to Anesthesia Record ESTIMATED BLOOD LOSS: 0 PATHOLOGY: other (Right ovary to pathology) COMPLICATIONS: None Patient was transported to: PACU Patient's condition: stable Implants: None Indications: 31-year-old G2, P2 female with a history of chronic pelvic pain who previously underwent a laparoscopic assisted vaginal hysterectomy in December 2019 for pelvic pain. Her postop course was complicated by revision of her vaginal cuff incision after she developed bleeding for approximately 10 days from her surgery. Otherwise she has had intermittent right lower quadrant pain with some precipitating factors due to activity. Her most recent episode occurred approximately 3 weeks ago after moving some furniture and has increased intensity. She describes burning in the right lower quadrant. Imaging studies and labs have been unremarkable. Patient was intolerant of hormonal medical treatment for ovarian suppression and desired definitive therapy in the form of an oophorectomy. Findings: Right ovary unremarkable in appearance there is no evidence of pelvic adhesions left ovary appeared normal. Appendix normal and scan of the upper abdomen normal. Patient had prominent vasculature associated with the left adnexa. Both ureters were visualized. Procedure Description: Patient was taken to the operating room where she was placed in the dorsal supine position and endotracheal anesthesia was administered. She was then placed in the dorsolithotomy position in yellowfin stirrups and prepped in the usual sterile fashion. SCDs were in place. A surgical timeout was performed. A ring forcep with a moistened 4 x 4 was placed into the vagina and left and placed during the case. The umbilical fold was infiltrated with quarter percent Marcaine in a 12 mm transverse skin incision was made in the umbilicus along the previous scar. Through this incision a varies needle connected to carbon dioxide gas was inserted into the abdomen and intra-abdominal placement confirmed by drop in the intra-abdominal pressure. Once a pneumoperitoneum was established a 12 mm Visiport trocar was introduced into the abdomen under direct visualization. The patient was then placed in Trendelenburg and approximately 6 cm diagonal to the right and left of the umbilical incision the skin was transilluminated the subcutaneous tissue infiltrated with quarter percent Marcaine and then incised with a scalpel. Under direct visualization two 5 mm ports were placed in the right and left lower quadrants respectively. The abdomen was inspected with the above-noted findings. A LigaSure electrocautery device was used to clamp cauterize and transect the infundibulopelvic ligament. The ovary was placed in a collection bag and delivered through the umbilical skin incision. The abdomen was reinspected and the right adnexa was noted to be hemostatic. Patient was repositioned in the dorsal supine position and both 5 mm ports were removed under direct visualization. The pneumoperitoneum was deflated and the umbilical port site was removed. The rectus fascia below the 12 mm port site was reapproximated with interrupted suture of 0 Vicryl. The skin was reapproximated on the umbilical port site with a running subcuticular closure of 4-0 Monocryl. The edges of both 5 mm and 12 mm port sites were reapproximated with Steri-Strips and covered with dry sterile dressing.. Patient was placed in the dorsal supine position awakened extubated and transported recovery area in stable condition. All sponge lap needle counts correct x2.
[2022-02-20] MEDS: fentaNYL 100 MCG/2 ML VIAL IVP ×2 (08:53→09:03)
--- NOTE | 2022-02-20 09:10 | W.ANESPOSTOP ---
Postoperative Evaluation Date, Time and Location Date Performed: 02/20/22 Time Performed: 09:11 Patient Location: PACU Vital Signs Most Recent Imported Vital Signs: Most Recent Vital Signs Temp Pulse Resp BP Pulse Ox 36.4 C L 67 30 H 104/69 21 L 02/20/22 08:35 02/20/22 09:05 02/20/22 09:05 02/20/22 09:05 02/20/22 09:05 Pain Score Most Recent Pain Score: Most Recent Pain Score Pain Level 5 02/20/22 09:05 Assessment Mental Status: Awake (Alert & Oriented to Patient Baseline) Airway and Respiratory Function: Patent airway with normal (patient baseline) respiratory exam Cardiovascular Function: Hemodynamically Stable Hydration Status: Adequately Hydrated Nausea & Vomiting: No Nausea or Vomiting Pain: Other (Pain 5/10, pt resting comfortably) Peripheral Nerve Block: Patient did not receive a nerve block
[2022-02-20] MEDS: LORazepam 20 MG/10 ML VIAL IVP (09:14)
[2022-02-20] MEDS: HYDROmorphone 2 MG TAB PO (09:50)
--- NOTE | 2022-02-20 10:15 | PDOC.DSDIS_ITS ---
Discharge Plan Disposition Patient Disposition: HOME Condition: Good Discharge Details Attending Provider: Cate Nguyen Primary Care Provider: Ana Hendrix Home Meds and New Rx's Prescriptions: No Action zonisamide 100 mg capsule 200 mg PO HS Qty: 180 3RF Botox 100 unit recon soln 155 unit IM ONCE Rx Instructions: q 90 days by ENT cgc hydroxyzine HCl 10 mg tablet See Rx Instructions PO QHS PRN (Reason: insomnia and/or itching) Qty: 180 3RF Rx Instructions: 10-20mg PO every day at bedtime PRN; rizatriptan 5 mg tablet 5 mg PO ONCE PRN (Reason: migraine headache) Qty: 12 11RF Rx Instructions: May repeat dose x1 after 2 hours if first dose ineffective duloxetine [Cymbalta] 30 mg capsule,delayed release(DR/EC) 30 mg PO HS hydromorphone [Dilaudid] 2 mg tablet 2 mg PO Q6H MDD 4 PRN (Reason: pain) Qty: 10 0RF epinephrine 0.3 mg/0.3 mL auto-injector See Rx Instructions .ROUTE .COMPLEX Qty: 2 1RF Dose Instruction: INJECT 0.3 ML INTO THE MUSCLE NEEDED FOR BEE VENOM Rx Instructions: INJECT 0.3 ML INTO THE MUSCLE NEEDED FOR BEE VENOM prochlorperazine maleate 5 mg tablet 5 - 10 mg PO TID PRN (Reason: headaches) Qty: 30 0RF Rx Instructions: Take 1-2 tabs every 8 hours as needed for headaches. ondansetron HCl 4 mg tablet 4 mg PO Q6H PRN (Reason: nausea and vomiting) Qty: 10 0RF memantine 10 mg tablet 10 mg PO BID oxycodone 10 mg tablet 10 mg PO BID PRN (Reason: severe pain) Qty: 10 0RF Discharge Instructions Additional Instructions: As we discussed no exertional activity for 24 hours. You may walk up stairs. You may shower tomorrow. Leave the narrow Steri-Strips in place. You can cover your incisions with a Band-Aid after you shower. You have a prescription for hydromorphone and may take 1 tablet every 6 hours as needed for pain. I will call you tomorrow 02/21/2022 to assess how you are feeling. Any concerns or questions please call [phone] and asked to speak to Dr. Nguyen Stand Alone Forms: [employer]SU [employer] Specialist SurgeryW/Incision Activity:: Activity as Tolerated Diet:: As Tolerated Discharge Orders Discharge Orders: Discharge Order (Routine); Ordered 02/20/22 Ordered By: Cate Nguyen
== END 2022-02-20 11:08 | disposition home or self-care (01) ==
PROVIDERS: PCP Nurse Practitioner Adult Health; Visit Provider Obstetrics & Gynecology Gynecology
PROC: (CPT 58661; principal; 2022-02-20 07:30)
DX: G89.29 Other chronic pain (principal); R10.2 Pelvic and perineal pain; R10.31 Right lower quadrant pain
CPT/HCPCS: 58661; 88305; J0131; J1100; J1885; J2405; J3010; J3490

== ENCOUNTER → 2022-04-01 02:38 | Outpatient (CLI) | payer MEDICAID, SELFPAY ==
--- NOTE | 2022-04-01 07:15 | DI.MRI_ITS ---
Exam(s) MR BRAIN WO/W EXAM: MR BRAIN WO/W CLINICAL HISTORY: CSF leak?, post-tramautic PEREZ, migraine, G44.301, R51, G43 TECHNIQUE: Multiplanar multisequence MRI of the brain was performed. CONTRAST MATERIAL: IV Contrast: 14 mL of Dotarem contrast administered. COMPARISON: No exams were available for comparison FINDINGS: VENTRICLES AND EXTRA AXIAL SPACES: Normal in size and morphology for the patient's age. HEMORRHAGE: None. CEREBRAL PARENCHYMA: No focus of restricted diffusion to suggest acute infarct. No space-occupying le esme identified. MIDLINE SHIFT: None. BRAINSTEM/CEREBELLUM: Normal. CALVARIUM: Normal. ENHANCEMENT: No suspicious enhancement identified. VISUALIZED PARANASAL SINUSES/MASTOIDS: [id number] mucosal thickening is seen in the maxillary s inuses bilaterally. There is also mild mucosal thickening in the ethmoid air cells bilaterally and t he left frontal sinuses. Mild mucosal thickening is seen in the sphenoid sinuses bilaterally. The m astoid air cells are clear. [place] TRIBES OF ABREU: Normal flow void. PITUITARY GLAND: Unremarkable. OTHER FINDINGS: IMPRESSION: 1. Mild chronic sinus disease. 2. Otherwise unremarkable MRI of the brain. No intracranial mass or enhancing lesion. DATA REPOSITORY:
[2022-04-01] MEDS: Normal Saline Flush 10 ML SYR IVP (10:19)
== END ==
PROVIDERS: PCP Nurse Practitioner Adult Health; Visit Provider Nurse Practitioner Adult Health
DX: G44.301 Post-traumatic headache, unspecified, intractable (principal); J32.0 Chronic maxillary sinusitis
CPT/HCPCS: 70553

== ENCOUNTER 2022-10-04 17:07 | Outpatient (REF) | payer MEDICAID, SELFPAY ==
[2022-10-07 10:26] LABS: HSV Type 1 Ab, IgG Positive (Negative); HSV Type 2 Ab, IgG Negative (Negative)
== END 2022-10-04 17:08 | disposition home or self-care (01) ==
LOC: LBN 17:07
PROVIDERS: PCP Nurse Practitioner Adult Health; Visit Provider Nurse Practitioner Family
DX: K13.79 Other lesions of oral mucosa (principal); Z11.59 Encounter for screening for other viral diseases
CPT/HCPCS: 86695; 86696

== ENCOUNTER 2022-12-24 11:12 | Outpatient (CLI) | payer MEDICAID, SELFPAY ==
[2022-12-24 08:54] LABS: Anion Gap 8.6 mmol/L (3-11); BUN 10 mg/dL (7-18); CO2 26.4 mmol/L (21.0-32.0); Calcium 8.7 mg/dL (8.5-10.1); Chloride 108 mmol/L (98-107); Estimated GFR 76.29 (mL/min/1.73m2); Glucose 93 mg/dL (74-106); Potassium 3.9 mmol/L (3.5-5.1); Sodium 143 mmol/L (136-145); TSH (W/Ref FT4) 1.26 uIU/mL (0.36-3.74)
== END 2022-12-24 11:13 | disposition home or self-care (01) ==
LOC: LBO 11:13
PROVIDERS: PCP Nurse Practitioner Adult Health; Visit Provider Nurse Practitioner Adult Health
DX: F41.9 Anxiety disorder, unspecified (principal); F43.10 Post-traumatic stress disorder, unspecified; F43.21 Adjustment disorder with depressed mood
CPT/HCPCS: 36415; 80048; 84443

== ENCOUNTER 2023-01-22 14:07 | Outpatient (REF) | payer MEDICAID, SELFPAY ==
[2023-01-22 15:35] LABS: Abs Immature Grans 0.03 10^3/uL (0.0-0.06); Absolute Basophil Count 0.12 10^3/uL (0.0-0.2); Absolute Eosinophil Count 0.65 10^3/uL (0.0-0.7); Absolute Lymphocyte Count 1.81 10^3/uL (1.2-3.4); Absolute Monocyte Count 0.74 10^3/uL (0.1-0.8); Absolute Neutrophil Count 4.57 10^3/uL (1.2-6.7); Basophils % 1.5; Eosinophils % 8.2; HGB 13.7 g/dL (11.2-15.7); Immature Grans % 0.4; Lymphocytes % 22.9; MCH 30.7 pg (27.0-33.0); MCHC 34.3 % (32.0-36.0); MCV 90 fL (80-95); MPV 9.4 fL (8.0-11.0); Monocytes % 9.3; Neutrophils % 57.7; Platelet Count 331 10^3/uL (130-400); RBC 4.46 10^6/uL (3.93-5.22); RDW 11.4 % (11.7-14.6); RDW-SD 37.2 fL; WBC 7.92 10^3/uL (4.4-10.8)
[2023-01-22 15:50] LABS: ESR 6 mm/hr (0-20)
[2023-01-22 16:22] LABS: ALT 17 U/L (14-59); AST 15 U/L (15-37); Albumin 4.2 g/dL (3.4-5.0); Alkaline Phosphatase 67 U/L (46-116); Anion Gap 7.5 mmol/L (3-11); BUN 9 mg/dL (7-18); Bilirubin, Total 0.5 mg/dL (0.2-1.0); CO2 27.5 mmol/L (21.0-32.0); CREATININE 0.8 mg/dL (0.55-1.02); Calcium 8.8 mg/dL (8.5-10.1); Chloride 106 mmol/L (98-107); Estimated GFR 99.71 (mL/min/1.73m2); Folate 14.9 ng/mL (8.6-20.0); Glucose 87 mg/dL (74-106); Potassium 4.1 mmol/L (3.5-5.1); Sodium 141 mmol/L (136-145); Total Protein 7.5 g/dL (6.4-8.2); Vitamin B12 869 pg/mL (193-986)
== END 2023-01-22 14:08 | disposition home or self-care (01) ==
LOC: LBN 14:07
PROVIDERS: PCP Nurse Practitioner Adult Health; Visit Provider Nurse Practitioner Adult Health
DX: F41.8 Other specified anxiety disorders (principal); G43.909 Migraine, unspecified, not intractable, without status migrainosus; R51.9 Headache, unspecified; G89.29 Other chronic pain; Z79.899 Other long term (current) drug therapy
CPT/HCPCS: 80053; 85652; 82607; 82746; 85025

== ENCOUNTER 2023-02-21 14:56 | Outpatient (CLI) | payer MEDICAID, SELFPAY | END 2023-02-21 14:57 | disposition home or self-care (01) | PROVIDERS: PCP Nurse Practitioner Adult Health; Visit Provider Nurse Practitioner Adult Health | DX: R00.0 Tachycardia, unspecified (principal) | CPT/HCPCS: 93246 ==

== ENCOUNTER 2023-03-17 15:57 | Outpatient (REF) | payer MEDICAID, SELFPAY ==
[2023-03-17 19:29] LABS: Abs Immature Grans 0.04 10^3/uL (0.0-0.06); Absolute Basophil Count 0.11 10^3/uL (0.0-0.2); Absolute Eosinophil Count 1.04 10^3/uL (0.0-0.7); Absolute Lymphocyte Count 1.86 10^3/uL (1.2-3.4); Absolute Monocyte Count 0.95 10^3/uL (0.1-0.8); Absolute Neutrophil Count 5.87 10^3/uL (1.2-6.7); Basophils % 1.1; Eosinophils % 10.5; HCT 35.6 % (36.0-46.0); HGB 12.2 g/dL (11.2-15.7); Immature Grans % 0.4; Lymphocytes % 18.8; MCH 30.3 pg (27.0-33.0); MCHC 34.3 % (32.0-36.0); MCV 89 fL (80-95); MPV 9.4 fL (8.0-11.0); Monocytes % 9.6; Neutrophils % 59.6; Platelet Count 304 10^3/uL (130-400); RBC 4.02 10^6/uL (3.93-5.22); RDW-SD 38.7 fL; WBC 9.87 10^3/uL (4.4-10.8)
[2023-03-17 20:03] LABS: ALT 19 U/L (14-59); AST 14 U/L (15-37); Albumin 3.8 g/dL (3.4-5.0); Alkaline Phosphatase 59 U/L (46-116); Anion Gap 10.9 mmol/L (3-11); BUN 11 mg/dL (7-18); Bilirubin, Total 0.3 mg/dL (0.2-1.0); CO2 21.1 mmol/L (21.0-32.0); Calcium 8.3 mg/dL (8.5-10.1); Chloride 104 mmol/L (98-107); Estimated GFR 76.29 (mL/min/1.73m2); Glucose 95 mg/dL (74-106); Potassium 3.5 mmol/L (3.5-5.1); Sodium 136 mmol/L (136-145); Total Protein 6.8 g/dL (6.4-8.2)
[2023-03-19 10:40] LABS: Hepatitis C Ab w Rflx HCV PCR Negative (Negative)
[2023-03-19 11:04] LABS: HIV-1/2 Ag & Ab Screen Negative (Negative)
== END 2023-03-17 15:58 | disposition home or self-care (01) ==
LOC: LBN 15:57
PROVIDERS: PCP Nurse Practitioner Adult Health; Visit Provider Nurse Practitioner Adult Health
DX: R53.83 Other fatigue (principal); R00.0 Tachycardia, unspecified; I95.9 Hypotension, unspecified; B00.9 Herpesviral infection, unspecified; R30.0 Dysuria; Z11.59 Encounter for screening for other viral diseases; Z11.4 Encounter for screening for human immunodeficiency virus [HIV]
CPT/HCPCS: 80053; 86803; 87389; 85025; 87086

== ENCOUNTER 2024-07-10 16:46 | Emergency (ER) | payer OTHER, SELFPAY ==
[2024-07-10 16:48] VITALS: BP 131/82; PULSE 66; RESP 18; TEMP 36.4; O2SAT 98
[2024-07-10 17:00] VITALS: BP 130/80; PULSE 66; RESP 18; TEMP 36.4; O2SAT 98
--- NOTE | 2024-07-10 17:46 | ED.GENADUL_ITS ---
Discharge Plan Disposition Patient Disposition: Home Condition: Good Discharge Details Clinical Impression: Migraine Primary Care Provider: Ana Hendrix ED Provider: Edwige Fonseca Home Meds and New Rx's Prescriptions: Continued zonisamide 100 mg capsule 200 mg PO HS Qty: 180 3RF rizatriptan 5 mg tablet 5 mg PO ONCE PRN (Reason: migraine headache) Qty: 12 11RF Rx Instructions: May repeat dose x1 after 2 hours if first dose ineffective Nurtec ODT 75 mg tablet,disintegrating 75 mg PO Q OTHER DAY PRN (Reason: migraine headache) Qty: 45 3RF Rx Instructions: as a single dose epinephrine 0.3 mg/0.3 mL auto-injector See Rx Instructions .ROUTE .COMPLEX Qty: 2 1RF Dose Instruction: INJECT 0.3 ML INTO THE MUSCLE NEEDED FOR BEE VENOM Rx Instructions: INJECT 0.3 ML INTO THE MUSCLE NEEDED FOR BEE VENOM hydroxyzine HCl 10 mg tablet See Rx Instructions PO QHS PRN (Reason: nightmares/insomnia) Qty: 180 3RF Rx Instructions: 10-20mg PO every day at bedtime PRN; Botox 100 unit recon soln 155 unit IM Q12W Rx Instructions: q 90 days by ENT cgc prochlorperazine maleate 5 mg tablet 5 - 10 mg PO TID PRN (Reason: headaches) Qty: 30 0RF Rx Instructions: Take 1-2 tabs every 8 hours as needed for headaches. Vyepti 100 mg/mL solution 100 mg IV [id number] Patient Comments: 06/28/24 Neurology visit Rx Instructions: administer over 30 mins Discharge Instructions Instructions: Migraine in adults Additional Instructions: Call your primary care doctor to schedule an appointment to followup on your visit here. Return to the emergency department for new or worsening symptoms, including if your headache returns, you have vomiting, numbness/tingling/weak ness/vertgio/vision changes, or if you have any other concerns. Referrals: Ana Hendrix DEVELOPMENTAL THERAPIST [Primary Care Provider] - [facility] General Mode of arrival: ambulatory . Date/Time Provider Initiated Documentation: 07/10/24 16:49 . Limitations to Documentation: no limitations . Information obtained by: patient . HPI Narrative: 33yo F with history of migraines presenting with headache. Symptoms started earlier this afternoon and have been gradually worsening. Tried home abortive medications without effect. Pain is dull, right sided, and involves eye/face/jaw. Aside from severity it is typical of her usual migraines in location and character. No numbness, tingling, weakness, vertigo, or vision changes. No recent head injury. Otherwise in her usual state of health with no fevers, chills, rash, abdominal pain, chest pain, shortness of breath, or other concerns. Related Data Home Medications ?Medication ?Instructions ?Recorded ?Confirmed prochlorperazine maleate 5 mg 5 - 10 mg (1 - 2 x 5 mg) PO TID 01/30/22 07/10/24 tablet PRN headaches #30 tabs rimegepant 75 mg disintegrating 75 mg PO Q OTHER DAY PRN migraine 03/19/22 07/10/24 tablet (Nurtec ODT) headache #45 tabs rizatriptan 5 mg tablet 5 mg PO ONCE PRN migraine headache 03/19/22 07/10/24 #12 tab-caps zonisamide 100 mg capsule 200 mg (2 x 100 mg) PO HS #180 caps 03/19/22 07/10/24 epinephrine 0.3 mg/0.3 mL See Rx Instructions .Route 08/25/23 07/10/24 injection, auto-injector .COMPLEX #2 ea hydroxyzine HCl 10 mg tablet See Rx Instructions PO QHS PRN 08/25/23 07/10/24 nightmares/insomnia #180 tabs onabotulinumtoxinA 100 unit 155 unit IM Q12W 08/25/23 07/10/24 solution for injection (Botox) eptinezumab-jjmr 100 mg/mL 100 mg IV [id number] 06/28/24 07/10/24 intravenous solution (Vyepti) Previous Rx's ?Medication ?Instructions ?Recorded prochlorperazine maleate 5 mg 5 - 10 mg (1 - 2 x 5 mg) PO TID 01/30/22 tablet PRN headaches #30 tabs rimegepant 75 mg disintegrating 75 mg PO Q OTHER DAY PRN migraine 03/19/22 tablet (Nurtec ODT) headache #45 tabs rizatriptan 5 mg tablet 5 mg PO ONCE PRN migraine headache 03/19/22 #12 tab-caps zonisamide 100 mg capsule 200 mg (2 x 100 mg) PO HS #180 caps 03/19/22 epinephrine 0.3 mg/0.3 mL See Rx Instructions .Route 08/25/23 injection, auto-injector .COMPLEX #2 ea hydroxyzine HCl 10 mg tablet See Rx Instructions PO QHS PRN 08/25/23 nightmares/insomnia #180 tabs Allergies Allergy/AdvReac Type Severity Reaction Status Date / Time bee venom protein (honey bee) Allergy Severe Skin Rash Verified 07/10/24 16:50 General Stated Complaint: Headache ALEC: 3 Review of Systems Narrative: see HPI Exam Narrative Exam Narrative: General: Alert, non-toxic Head: Normocephalic, atraumatic Neck: Trachea midline, ?Neck supple. ENT: ?MMM.? No oropharygeal lesions or exudate. Cardiac: ?RRR, no murmurs appreciated Resp: No respiratory distress. CTAB. Abd: ?Soft, non-distended, nontender Extremities: ?No deformities.? No peripheral edema. Neuro: ? GCS 15.? PERRL.? EOMI.? Fluent speech, no dysarthria. Motor- 5/5 strength symmetric bilateral upper and lower extremities including shoulder abductors/adductors, elbow flexors/extensors, wrist flexors/extensors, finger abductors/adductors, hipflexors/extensors, knee flexors/extensors, ankle dorsiflexors and planter flexors. Sensation- ?Intact to light touch and symmetric multiple dermatomes including upper and lower extremities Coordination- No dysmetria on finger to nose Gait/station: ?Normal stance.? No truncal ataxia. Steady gait with equal normal steps CRANIAL NERVES: II: Pupils equal and reactive, III, IV, : EOM intact, no gaze preference or deviation, no nystagmus. V: normal sensation in V1, V2, and V3 segments bilaterally VII: no asymmetry, no nasolabial fold flattening VIII: normal hearing to speech IX, X: normal palatal elevation, no uvular deviation XI: 5/5 head turn and 5/5 shoulder shrug bilaterally XII: midline tongue protrusion Course Vital Signs Vital signs: Vital Signs Temperature 36.4 C 07/10/24 16:48 Pulse 66 07/10/24 16:48 Respiratory Rate 18 07/10/24 16:48 Blood Pressure 131/82 07/10/24 16:48 Pulse Oximetry 98 07/10/24 16:48 Temperature 36.4 C 07/10/24 17:00 Temperature Source Oral 07/10/24 17:00 Pulse 66 07/10/24 17:00 Respiratory Rate 18 07/10/24 17:00 Respiratory Effort Normal, Non-Labored 07/10/24 16:51 Blood Pressure 130/80 07/10/24 17:00 Pulse Oximetry 98 07/10/24 17:00 Oxygen Delivery Method Nasal Cannula 07/10/24 17:00 Medical Decision Making 33yo F with history of migraines presenting with headache typicaly of her usual migraines, unresponsive to home medications today. Systemically well. Vital signs and physical exam reassuring. Normal neurologic exam. No red flags on history or exam; unlikely SAH, epidural hematoma, ICH, giant cell arteritis, meningitis, encephalitis, etc. Would not get labs or CT imaging or LP at this time. Will treat wtih toradol, tyelnol, compazine, benadyrl. On reassessment she reports her headache has improved. Well appearing with reassuring vital signs. Requests discharge home which is reasonable. Discharged; discharge instructions and return precautions were reviewed with patient who verbalized understanding. All questions were answered and she is in full agreement with the plan. Quality:SDOH Health Related Social Needs: No Data to Display PFSH All Active Problems (Updated 07/10/24 @ 19:24 by Edwige Fonseca MD) Migraine (Chronic) Uncontrolled morning headache (Acute) [facility] [place] Recurrent HSV (herpes simplex virus) (Acute ~06/2022) Other fatigue (Acute) [facility] [place]/29/23 Hypotension (Acute) [facility] [place]23 Post-traumatic headache, unspecified, intractable (Chronic ~08/2019) Constipation (Acute) Adjustment disorder with depressed mood (Acute) Chronic nonintractable headache (Acute ~08/2019) 08/21/20 Therapeutic Botox-Ortega 04/13/21-Trigger Point Injection[place] Chronic daily headache (Acute) PTSD (post-traumatic stress disorder) (Chronic) Post concussive syndrome (Acute) Anxiety (Chronic) With depressive components in Winter PTSD components Migraine (Chronic ~08/2019) Medical History (Updated 07/10/24 @ 19:24 by Edwige Fonseca MD) Snoring (~06/2023) [facility] [place]; NEG SLEEP STUDY (no HIRAM) Concussion (~03/2023) [facility] [place] Tachycardia [facility] [place] 01/29/23 Preoperative exam for gynecologic surgery Pelvic pain Adnexal cyst Acute sialoadenitis Dizziness Pelvic pain resolved s/p RYAN Recurrent urinary tract infection (01/23/18) RX Macrobid; [facility] Allergic rhinitis Abnormal cervical Papanicolaou smear 2011, 02/22/15 nml neg HPV Nephrolithiasis R Surgical History History of right oophorectomy 02/2022. 2 treat chronic right lower quadrant pain after her vaginal hyst erectomy. Normal pathology S/P hysterectomy (~12/22/19) with bilateral Salpingoectomy Hx of cystoscopy History of hemorrhoidectomy (~2012) Family History Father Substance abuse opiate Other Chronic daily headache Social History Smoking/Tobacco Use Status: Never Smoking risk assessment performed?: Yes Alcohol Intake: current Alcohol Intake frequency: a few times a month Alcohol type: beer Drug use: Never Substance use type: does not use Adopted: No Caregiver/Support person: No Foster care: No Household members: family Housing: house Number of Children: 4 Communication Needs: Corrective Lenses Education Level: college Do you need help understanding health information?: Rarely 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; 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 Pets and animals: Yes Pets and animals: cat(s), dog(s) and farm animals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 Do you think of yourself as: straight/heterosexual Current gender identity: female What is your relationship status?: living with partner How often do you talk on the phone with friends or family?: three or more times per week How often do you get together with friends or relatives?: once per week Do you belong to any clubs or organized social groups?: no Panel score (0-1 are the most socially isolated patients): 2 What type of physical activity do you participate in: none Duration: 15-30 minutes/day Frequency: 1-2 times per week Leah/Tenriism: Protestant Special leah needs: No Seatbelt use: always Drive intox or ride w/intox shuttle 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: No Working smoke detector in home: Yes Fire extinguisher in home: Yes Carbon monox detector in home: Yes Do you feel safe at home: Yes Do you feel safe in your relationship?: Yes Female Reproductive History Menstrual Age of Menarche: 13 control method: permanent sterilization Menopause type: surgical History History 2 Para 2 Hx # Term Pregnancies Multiple births Hx # Pregnancies Ectopic pregnancies AB induced Hx Number of Living Children AB spontaneous PAWSS Have you Been Recently Intoxicated or Drunk Within the Last 30 days?: No Have you Ever Experienced Previous Episodes of Alcohol Withdrawal?: No Have you ever Experienced Withdrawal Seizures?: No Have you ever Experienced Delirium Tremens(DT)s?: No Have you ever undergone Alcohol Rehabilitation Treatment (i.e, inpt ot outpatient treatment programs)?: No Have you ever Experienced Blackouts?: No Have you ever Combined Alcohol with other Downers within the last 90 days?: No Have you ever Combined Alcohol with any other Substance of Abuse during the last 90 days?: No Positive Blood Alcohol level on Presentation? [PCS.BAL]: No Evidence of Increased Autonomic Activity (i.e. HR>120, tremor, sweating, agitation, nausea)?: No Result: 0
[2024-07-10] MEDS: ACETAMINOPHEN 1,000 MG/100 ML BAG 400 MG IVPB (17:47)
[2024-07-10] MEDS: Ketorolac 15 MG/ML VIAL IVP (17:47)
[2024-07-10] MEDS: diphenhydrAMINE 50 MG/ML VIAL IVP (17:47)
[2024-07-10] MEDS: Metoclopramide 10 MG/2 ML VIAL IVP (17:47)
[2024-07-10] MEDS: Prochlorperazine 10 MG/2 ML VIAL IVP (17:48)
[2024-07-10] MEDS: Normal Saline 1,000 ML 1000 ML IV (17:48)
[2024-07-10 19:22] VITALS: BP 100/63; PULSE 80; RESP 18; TEMP 36.8; O2SAT 98
[2024-07-10 19:30] VITALS: BP 100/63; PULSE 63; RESP 18; O2SAT 100
[2024-07-10 19:36] VITALS: BP 100/63; PULSE 63; RESP 18; O2SAT 100
== END 2024-07-10 19:36 | disposition home or self-care (01) ==
PROVIDERS: Emergency Provider Student in an Organized Health Care Education/Training Program; PCP Nurse Practitioner Adult Health
DX: G43.709 Chronic migraine without aura, not intractable, without status migrainosus (principal)
CPT/HCPCS: 96365; 96366; 96375; 99284; J0131; J0780; J1200; J1885; J2765

== ENCOUNTER 2024-09-23 08:45 | Emergency (ER) | payer OTHER, SELFPAY ==
[2024-09-23 09:00] VITALS: BP 113/68; PULSE 108; RESP 20; TEMP 37.4; O2SAT 98
--- NOTE | 2024-09-23 09:37 | DI.RAD_ITS ---
Exam(s) XR CHEST 2V PA LATERAL EXAM: XR CHEST 2V PA LATERAL CLINICAL HISTORY: cough TECHNIQUE: 2D digital imaging was performed of the chest. Two images were obtained. PA and lateral views were obtained. COMPARISON: CR CHEST 2 VIEWS PA,LAT from 11/28/2016 FINDINGS: MEDIASTINUM: Normal. HEART: Normal. PULMONARY VASCULATURE: Normal. LUNGS: Clear. PLEURAL SPACE: No pleural effusion or pneumothorax. BONE:Within normal limits for the patient's age. OTHER FINDINGS:Normal. IMPRESSION: No acute pulmonary findings. DATA REPOSITORY: RADIATION DOSE DELIVERED:
--- NOTE | 2024-09-23 09:49 | ED.GENADUL_ITS ---
Discharge Plan Disposition Patient Disposition: Home Discharge Details Clinical Impression: Acute upper respiratory infection Primary Care Provider: Ana Hendrix ED Provider: Sissy Worley Home Meds and New Rx's Prescriptions: New promethazine 6.25 mg/5 mL syrup 12.5 mg PO Q6H PRN (Reason: cough) Qty: 120 0RF benzonatate 100 mg capsule 100 mg PO TID PRN (Reason: cough) Qty: 30 0RF No Action rizatriptan 5 mg tablet 5 mg PO ONCE PRN (Reason: migraine headache) Qty: 12 11RF Rx Instructions: May repeat dose x1 after 2 hours if first dose ineffective Nurtec ODT 75 mg tablet,disintegrating 75 mg PO Q OTHER DAY PRN (Reason: migraine headache) Qty: 45 3RF Rx Instructions: as a single dose epinephrine 0.3 mg/0.3 mL auto-injector See Rx Instructions .ROUTE .COMPLEX Qty: 2 1RF Dose Instruction: INJECT 0.3 ML INTO THE MUSCLE NEEDED FOR BEE VENOM Rx Instructions: INJECT 0.3 ML INTO THE MUSCLE NEEDED FOR BEE VENOM hydroxyzine HCl 10 mg tablet See Rx Instructions PO QHS PRN (Reason: nightmares/insomnia) Qty: 180 3RF Rx Instructions: 10-20mg PO every day at bedtime PRN; Botox 100 unit recon soln 155 unit IM Q12W Rx Instructions: q 90 days by ENT c[facility] sertraline 50 mg tablet 25 mg PO DAILY MDD 50mg/24h Qty: 90 1RF Rx Instructions: May increase to 50mg after 6 days Zepbound 5 mg/0.5 mL pen injector 5 mg subcut QWEEK Qty: 2 1RF amoxicillin-pot clavulanate 875-125 mg tablet 1 tab PO BID Qty: 14 0RF prochlorperazine maleate 5 mg tablet 5 - 10 mg PO TID PRN (Reason: headaches) Qty: 30 0RF Rx Instructions: Take 1-2 tabs every 8 hours as needed for headaches. Vyepti 100 mg/mL solution 100 mg IV [id number] Patient Comments: 06/28/24 Neurology visit Rx Instructions: administer over 30 mins Discharge Instructions Instructions: Viral Upper Respiratory Infection, Adult (DC) Additional Instructions: Your chest x-ray does not reveal any acute pneumonia. I have sent some cough medications to the pharmacy to help with your symptoms. Please continue Motrin and Tylenol as needed for fever or bodyaches. Please make sure to stay hydrated and follow-up with your primary care doctor if you have persistent ongoing symptoms. Discharge Data Discharge Date/Time-TO BE ENTERED AT DEPARTURE: 09/23/24 10:16 HPI General Date/Time Provider Initiated Documentation: 09/23/24 09:07 . Limitations to Documentation: no limitations . Information obtained by: patient . HPI Narrative: 34-year-old female with past medical history include migraines, anxiety presents for evaluation of 5 days of URI symptoms including body aches, fever, nausea. She reports cough productive of sputum. She reports that she is now having some burning in her throat. She denies any shortness of breath. Denies tobacco use or asthma history. She has been eating and drinking well. Related Data Home Medications ?Medication ?Instructions ?Recorded ?Confirmed prochlorperazine maleate 5 mg 5 - 10 mg (1 - 2 x 5 mg) PO TID 01/30/22 09/23/24 tablet PRN headaches #30 tabs rimegepant 75 mg disintegrating 75 mg PO Q OTHER DAY PRN migraine 03/19/22 09/23/24 tablet (Nurtec ODT) headache #45 tabs rizatriptan 5 mg tablet 5 mg PO ONCE PRN migraine headache 03/19/22 09/23/24 #12 tab-caps epinephrine 0.3 mg/0.3 mL See Rx Instructions .Route 08/25/23 09/23/24 injection, auto-injector .COMPLEX #2 ea hydroxyzine HCl 10 mg tablet See Rx Instructions PO QHS PRN 08/25/23 09/23/24 nightmares/insomnia #180 tabs onabotulinumtoxinA 100 unit 155 unit IM Q12W 08/25/23 09/23/24 solution for injection (Botox) eptinezumab-jjmr 100 mg/mL 100 mg IV [id number] 06/28/24 09/23/24 intravenous solution (Vyepti) amoxicillin 875 mg-potassium 1 tab PO BID #14 tabs 08/18/24 09/23/24 clavulanate 125 mg tablet sertraline 50 mg tablet 25 mg (1/2 x 50 mg) PO DAILY #90 08/18/24 09/23/24 tabs tirzepatide (weight loss) 5 mg/0.5 5 mg (0.5 mL) subcut QWEEK #2 mL 08/18/24 09/23/24 mL subcutaneous pen injector (Zepbound) benzonatate 100 mg capsule 100 mg PO TID PRN cough #30 caps 09/23/24 promethazine 6.25 mg/5 mL oral 12.5 mg (10 mL) PO Q6H PRN cough 09/23/24 syrup #120 mL Previous Rx's ?Medication ?Instructions ?Recorded prochlorperazine maleate 5 mg 5 - 10 mg (1 - 2 x 5 mg) PO TID 01/30/22 tablet PRN headaches #30 tabs rimegepant 75 mg disintegrating 75 mg PO Q OTHER DAY PRN migraine 03/19/22 tablet (Nurtec ODT) headache #45 tabs rizatriptan 5 mg tablet 5 mg PO ONCE PRN migraine headache 03/19/22 #12 tab-caps epinephrine 0.3 mg/0.3 mL See Rx Instructions .Route 08/25/23 injection, auto-injector .COMPLEX #2 ea hydroxyzine HCl 10 mg tablet See Rx Instructions PO QHS PRN 08/25/23 nightmares/insomnia #180 tabs amoxicillin 875 mg-potassium 1 tab PO BID #14 tabs 08/18/24 clavulanate 125 mg tablet sertraline 50 mg tablet 25 mg (1/2 x 50 mg) PO DAILY #90 08/18/24 tabs tirzepatide (weight loss) 5 mg/0.5 5 mg (0.5 mL) subcut QWEEK #2 mL 08/18/24 mL subcutaneous pen injector (Zepbound) benzonatate 100 mg capsule 100 mg PO TID PRN cough #30 caps 09/23/24 promethazine 6.25 mg/5 mL oral 12.5 mg (10 mL) PO Q6H PRN cough 09/23/24 syrup #120 mL Allergies Allergy/AdvReac Type Severity Reaction Status Date / Time bee venom protein (honey bee) Allergy Severe Skin Rash Verified 09/23/24 09:03 General Stated Complaint: RespSymp ALEC: 4 Exam Narrative Exam Narrative: Review of Systems: All systems reviewed & are unremarkable except as noted in HPI and below Well-developed, no acute distress Afebrile NCAT PERRL, normal conjunctiva Bilateral TM without erythema effusion or bulging No oral lesions, posterior oropharynx with mild erythema, no tonsillar exudate Shotty cervical adenopathy Mild tachycardia no murmur Unlabored respiratory effort, no hypoxia diminished breath sounds at the right upper lobe Nondistended abdomen No rashes or lesions. Course Vital Signs Vital signs: Vital Signs Temperature 37.4 C 09/23/24 09:00 Pulse 108 H 09/23/24 09:00 Respiratory Rate 20 09/23/24 09:00 Blood Pressure 113/68 09/23/24 09:00 Pulse Oximetry 98 09/23/24 09:00 Temperature 37.4 C 09/23/24 09:00 Temperature Source Oral 09/23/24 09:00 Pulse 108 H 09/23/24 09:00 Respiratory Rate 20 09/23/24 09:00 Respiratory Effort Normal, Non-Labored 09/23/24 09:20 Respiratory Depth Normal 09/23/24 09:20 Blood Pressure 113/68 09/23/24 09:00 Blood Pressure Position Sitting 09/23/24 09:00 Pulse Oximetry 98 09/23/24 09:00 Oxygen Delivery Method Room Air 09/23/24 09:00 Oxygen Flow Rate 0 09/23/24 09:00 Pain Level 8 09/23/24 09:00 Medical Decision Making Emergent evaluation of URI symptoms. Symptoms have been ongoing for the last 5 days. On my evaluation, the patient is overall well-appearing and does not just delay any signs or symptoms concerning for serious bacterial illness initial differential includes URI, strep pneumonia, no evidence of respiratory failure. Given duration of her symptoms no indication for viral testing chest x-ray to evaluate for pneumonia. Chest x-ray reviewed and independently interpreted and confirmed with radiologist report, there is no focal consolidation. No indication for antibiotics. Will discharge with prescription cough medication so at the time of discharge the patient states that she does not need any of that, she just wants IV fluids but was advised that given the fluids ordered emotionally, and the fact that she is tolerating liquids by mouth and appears well-hydrated there is no indication for fluids in the emergency department. Recommend close follow-up with her primary care physician as needed. Quality:SDOH Health Related Social Needs: 2 No Data to Display PFSH All Active Problems (Updated 09/23/24 @ 10:03 by Sissy Worley MD) Acute upper respiratory infection (Acute) BMI 30.0-30.9,adult (Acute ~08/2024) HIRAM (obstructive sleep apnea) (Chronic ~07/12/24) Uncontrolled morning headache (Acute) [facility] [place] Recurrent HSV (herpes simplex virus) (Acute ~06/2022) ocular Other fatigue (Acute) [facility] [place]23 Hypotension (Acute) [facility] [place]23 Post-traumatic headache, unspecified, intractable (Chronic ~08/2019) Constipation (Acute) Adjustment disorder with depressed mood (Acute) Chronic nonintractable headache (Acute ~08/2019) 08/21/20 Therapeutic Botox-Ortega 04/13/21-Trigger Point Injection-[facility] Chronic daily headache (Acute) PTSD (post-traumatic stress disorder) (Chronic) Post concussive syndrome (Acute) Anxiety (Chronic) With depressive components in Winter PTSD components Migraine (Chronic ~08/2019) Medical History Snoring (~06/2023) [facility] [place]; NEG SLEEP STUDY (no HIRAM) Concussion (~03/2023) [facility] [place] Tachycardia [facility] [place] 01/29/23 Preoperative exam for gynecologic surgery Pelvic pain Adnexal cyst Acute sialoadenitis Dizziness Pelvic pain resolved s/p RYAN Recurrent urinary tract infection (01/23/18) RX Macrobid; [facility] Allergic rhinitis Abnormal cervical Papanicolaou smear 2011, 02/22/15 nml neg HPV Nephrolithiasis R Surgical History History of right oophorectomy 02/2022. 2 treat chronic right lower quadrant pain after her vaginal hysterectomy. Normal pathology S/P hysterectomy (~12/22/19) with bilateral Salpingoectomy Hx of cystoscopy History of hemorrhoidectomy (~2012) Family History Father Substance abuse opiate Other Chronic daily headache Social History Smoking/Tobacco Use Status: Never Smoking risk assessment performed?: Yes Alcohol Intake: current Alcohol Intake frequency: a few times a month Alcohol type: beer Drug use: Never Substance use type: does not use Adopted: No Caregiver/Support person: No Foster care: No Household members: family Housing: house Number of Children: 4 Communication Needs: Corrective Lenses Education Level: college Do you need help understanding health information?: Rarely 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; 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 Pets and animals: Yes Pets and animals: cat(s), dog(s) and farm animals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 Do you think of yourself as: straight/heterosexual Current gender identity: female What is your relationship status?: living with partner How often do you talk on the phone with friends or family?: three or more times per week How often do you get together with friends or relatives?: once per week Do you belong to any clubs or organized social groups?: no Panel score (0-1 are the most socially isolated patients): 2 What type of physical activity do you participate in: none Duration: 15-30 minutes/day Frequency: 1-2 times per week Leah/Evangelical: [employer] Special leah needs: No Seatbelt use: always Drive intox or ride w/intox route 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
== END 2024-09-23 10:16 | disposition home or self-care (01) ==
PROVIDERS: Emergency Provider Emergency Medicine; PCP Nurse Practitioner Adult Health
DX: J06.9 Acute upper respiratory infection, unspecified (principal)
CPT/HCPCS: 99283; 71046

== ENCOUNTER 2024-11-09 02:20 | Outpatient (CLI) | payer OTHER, SELFPAY ==
[2024-11-09 08:29] LABS: ALT 15 U/L (14-59); AST 10 U/L (15-37); Albumin 4.2 g/dL (3.4-5.0); Alkaline Phosphatase 42 U/L (46-116); Anion Gap 8.5 mmol/L (3-11); BUN 9 mg/dL (7-18); Bilirubin, Total 0.6 mg/dL (0.2-1.0); CO2 27.5 mmol/L (21.0-32.0); Calcium 9.1 mg/dL (8.5-10.1); Calculated LDL 108 mg/dL (<100); Chloride 108 mmol/L (98-107); Cholesterol 169 mg/dL (<200); Estimated GFR 75.34 (mL/min/1.73m2); Glucose 87 mg/dL (74-106); HDL Cholesterol 52 mg/dL (>or=50); Potassium 4.1 mmol/L (3.5-5.1); Sodium 144 mmol/L (136-145); Total Protein 7.3 g/dL (6.4-8.2); Triglyceride 48 mg/dL (<150)
== END 2024-11-09 02:21 | disposition home or self-care (01) ==
LOC: LBO 02:20
PROVIDERS: PCP Nurse Practitioner Adult Health; Referring Provider Nurse Practitioner Adult Health; Visit Provider Nurse Practitioner Adult Health
DX: Z13.220 Encounter for screening for lipoid disorders (principal); Z13.1 Encounter for screening for diabetes mellitus
CPT/HCPCS: 36415; 80053; 80061